=== PATIENT | male | born 1955 | race Caucasian/White ===

== ENCOUNTER 2019-11-17 11:00 | Day surgery (SDC) | payer OTHER, SELFPAY ==
--- NOTE | 2019-11-16 11:35 | HO.ANESPROP2 ---
Documented by User: Maritza Montenegro 11/16/19 11:38 HPI - Anesthesia Eval Consult details Narrative: 63yo M for Upper Endoscopy [facility] Past Medical History Medical History (Updated 11/16/19 @ 11:38 by Maritza Montenegro) Anxiety CAD (coronary artery disease) Depression Former smoker Hiatal hernia Kidney stones Myocardial infarct Sleep apnea Surgical History Surgical History (Updated 11/16/19 @ 11:38 by Maritza Montenegro) H/O gastric bypass History of appendectomy History of cholecystectomy History of coronary artery bypass surgery History of lithotripsy History of spinal fusion Social History Social History (Updated 11/16/19 @ 11:38 by Maritza Montenegro) Smoking Status: Former smoker Use of substances other than those prescribed or required for medical reasons: No Advance Directives: No Recently lost weight without trying: No Narrative Narrative: s/p ESWL with TIVA 10/11/19 Meds Allergies Allergy/AdvReac Type Severity Reaction Status Date / Time latex [LATEX] Allergy Intermediate RASH Unverified 10/26/19 14:55 Penicillins [PENICILLINS] Allergy Intermediate RASH/HIVES Unverified 10/26/19 14:55 Sulfa (Sulfonamide Allergy Intermediate HIVES, Unverified 10/26/19 14:55 Antibiotics) hospitalized, [SULFA(SULFONAMIDE edema ANTIBIOTICS)] codeine [CODEINE] AdvReac Unknown NAUSEA Unverified 10/26/19 14:55 Home Medications Medication Instructions Recorded Confirmed Type aspirin 81 mg PO DAILY 11/16/19 11/16/19 History cholecalciferol (vitamin D3) 50 mcg PO DAILY 11/16/19 11/16/19 History [Vitamin D3] clonazepam 1 tab PO BEDTIME PRN 11/16/19 11/16/19 History ezetimibe [Zetia] 10 mg PO DAILY 11/16/19 11/16/19 History meloxicam 1 tab PO DAILY 11/16/19 11/16/19 History oxcarbazepine 1 tab PO BID 11/16/19 11/16/19 History pantoprazole 1 tab PO BEDTIME 11/16/19 11/16/19 History quetiapine PO 11/16/19 History rosuvastatin mg PO 11/16/19 History tamsulosin 1 cap PO DAILY 11/16/19 11/16/19 History tamsulosin [Flomax] 0.4 mg PO DAILY 11/16/19 11/16/19 History testosterone cypionate mg IM 11/16/19 History carvedilol 1 tab PO BID 11/17/19 11/17/19 History Exam Exam Date and Time: November 16, 2019 1135 Assessment and Plan Assessment Anesthesia Assessment: Chart Reviewed Documented by User: Kenzie Saldana 11/17/19 11:39 [facility] Past Medical History Medical History (Updated 11/16/19 @ 11:38 by Maritza Montenegro) Anxiety CAD (coronary artery disease) Depression Former smoker Hiatal hernia Kidney stones Myocardial infarct Sleep apnea Family History Family history of problems with anesthesia: No Surgical History Surgical History (Updated 11/16/19 @ 11:38 by Maritza Montenegro) H/O gastric bypass History of appendectomy History of cholecystectomy History of coronary artery bypass surgery History of lithotripsy History of spinal fusion History of Problems with Anesthesia: Yes (PONV with GA) Social History Social History (Updated 11/16/19 @ 11:38 by Maritza Montenegro) Smoking Status: Former smoker Use of substances other than those prescribed or required for medical reasons: No Advance Directives: No Recently lost weight without trying: No Meds Allergies Allergy/AdvReac Type Severity Reaction Status Date / Time latex [LATEX] Allergy Intermediate RASH Unverified 10/26/19 14:55 Penicillins [PENICILLINS] Allergy Intermediate RASH/HIVES Unverified 10/26/19 14:55 Sulfa (Sulfonamide Allergy Intermediate HIVES, Unverified 10/26/19 14:55 Antibiotics) hospitalized, [SULFA(SULFONAMIDE edema ANTIBIOTICS)] codeine [CODEINE] AdvReac Unknown NAUSEA Unverified 10/26/19 14:55 Home Medications Medication Instructions Recorded Confirmed Type aspirin 81 mg PO DAILY 11/16/19 11/16/19 History cholecalciferol (vitamin D3) 50 mcg PO DAILY 11/16/19 11/16/19 History [Vitamin D3] clonazepam 1 tab PO BEDTIME PRN 11/16/19 11/16/19 History ezetimibe [Zetia] 10 mg PO DAILY 11/16/19 11/16/19 History meloxicam 1 tab PO DAILY 11/16/19 11/16/19 History oxcarbazepine 1 tab PO BID 11/16/19 11/16/19 History pantoprazole 1 tab PO BEDTIME 11/16/19 11/16/19 History quetiapine PO 11/16/19 History rosuvastatin mg PO 11/16/19 History tamsulosin 1 cap PO DAILY 11/16/19 11/16/19 History tamsulosin [Flomax] 0.4 mg PO DAILY 11/16/19 11/16/19 History testosterone cypionate mg IM 11/16/19 History carvedilol 1 tab PO BID 11/17/19 11/17/19 History Exam Height,Weight and Vital Signs: Vital Signs Temp Pulse Resp BP Pulse Ox 11/17/19 11:31 98.1 F 64 18 115/72 97 Airway Mallampati Class: III TM Dist: >3cm Partial: Upper and Lower Heart: RRR Lungs: CTAB Assessment and Plan Assessment Anesthesia Assessment: Anesthesia Plan Discussed and Chart Reviewed Final Anesthetic Review NPO: Yes ASA Class: III Final Preanesthetic Review: No Changes in Pt Med Stat, Meds/Allgs Chart Reviewed, Consent Obtained/Reviewed and Anes Risks/Benef Reviewed Patient Risk: Intermediate Procedure Risk: Low Anesthetic Plan Anesthetic Plan: MAC: Disposition: Standard PACU
[2019-11-17 11:23] VITALS: BMI 29.4
[2019-11-17 11:31] VITALS: BP 115/72; PULSE 64; RESP 18; TEMP 36.7; O2SAT 97
[2019-11-17 11:51] VITALS: BP 115/72; PULSE 64; RESP 18; TEMP 36.7; O2SAT 97
[2019-11-17] MEDS: Lactated Ringers 1,000 ML 100 ML IVCONT (11:53)
--- NOTE | 2019-11-17 12:19 | MHC.SHP ---
Pre-Procedural Eval Section A The patient is an INPATIENT: No Changes since office visit: No Cold of Flu in the past 2 weeks, No New Medical Problems, No Changes in Medication and No Patient answered all questions The History & Physical has been completed within 30 days and I have reviewed it.: Yes Section B Chief Complaint: Epigastric Pain Allergies: Allergies Allergy/AdvReac Type Severity Reaction Status Date / Time latex [LATEX] Allergy Intermediate RASH Unverified 10/26/19 14:55 Penicillins [PENICILLINS] Allergy Intermediate RASH/HIVES Unverified 10/26/19 14:55 Sulfa (Sulfonamide Allergy Intermediate HIVES, Unverified 10/26/19 14:55 Antibiotics) hospitalized, [SULFA(SULFONAMIDE edema ANTIBIOTICS)] codeine [CODEINE] AdvReac Unknown NAUSEA Unverified 10/26/19 14:55 Plan Patient has been examined and remains a candidate for the planned procedure
--- NOTE | 2019-11-17 12:43 | PM.OP ---
Brief Operative Note Date of procedure: 11/17/19 Pre-op diagnosis: dysphagia Post-op diagnosis: same Procedure: egd Surgeon: Kapil Morris Anesthesia: MAC Estimated blood loss (mL): 5 Pathology: other (esophageal biopsies) Condition: stable Disposition: PACU
[2019-11-17 12:47] VITALS: BP 99/56; PULSE 70; RESP 12; TEMP 36.1; O2SAT 95
[2019-11-17 13:00] VITALS: BP 100/71; PULSE 61; RESP 19; O2SAT 95
--- NOTE | 2019-11-17 13:26 | HO.POSTANES ---
Post Anesthesia Evaluation Post Anesthesia Evaluation Vital Signs: Vital Signs Temp Pulse Resp BP Pulse Ox 11/17/19 13:00 61 19 100/71 95 11/17/19 12:47 97 F 70 12 99/56 L 95 11/17/19 11:51 98.1 F 64 18 115/72 97 11/17/19 11:31 98.1 F 64 18 115/72 97 Anesthesia: Monitored Mental Status: Awake Pain Control: Satisfactory Nausea/Vomiting: None Hydration: Adequate Anesthesia-Related Issues: No Anes. Related Issues
--- NOTE | 2019-11-17 16:31 | OP_ITS ---
SURGEON: Kapil Morris MD INDICATIONS: Dysphagia. PREOPERATIVE DIAGNOSIS: POSTOPERATIVE DIAGNOSIS: PROCEDURE PERFORMED: Upper endoscopy with balloon dilation and biopsy. ESTIMATED BLOOD LOSS: COMPLICATIONS: ANESTHESIA: ASSISTANTS: SPECIMENS: MEDICATIONS: Monitored anesthesia care. DESCRIPTION OF PROCEDURE: History and physical performed. The risks and benefits of the procedure were explained to the patient. Informed consent was obtained. The patient was placed in the left lateral decubitus position. The Olympus video gastroscope was introduced into the esophagus, stomach, and duodenum. Examination was performed and the scope was removed. He tolerated the procedure well and was taken to recovery area in stable condition. FINDINGS: Esophagus: There was a 6 cm segment of Larson's esophagus with no raised lesions or ulcerated areas. The esophagus had somewhat of a sigmoid appearance to it. The EG junction was widely patent without a stricture. No esophagitis was present. Stomach: There was a hiatal hernia with a paraesophageal component. There were surgical changes from the patient's prior gastric sleeve surgery. Duodenum: The bulb and second portion were normal. A balloon dilation to 20 mm was performed at the EG junction because of the patient's complaints of dysphagia. Biopsies were obtained from 36 to 30 cm in all 4 quadrants every 2 cm. IMPRESSION: 1. Dysphagia. 2. Larson's esophagus. RECOMMENDATION: Follow up the biopsy results. MD BK Lenz/TWANL / [id number]
== END 2019-11-17 14:15 | disposition home or self-care (01) ==
PROVIDERS: PCP Internal Medicine; Visit Provider Internal Medicine Gastroenterology
PROC: 0DJ08ZZ Inspection of Upper Intestinal Tract, Via Natural or Artificial Opening Endoscopic (ICD-10-PCS; CPT 43235; principal; 2019-11-17 12:20)
DX: R13.10 Dysphagia, unspecified (principal); K22.70 Barrett's esophagus without dysplasia; K44.9 Diaphragmatic hernia without obstruction or gangrene; G47.33 Obstructive sleep apnea (adult) (pediatric); I25.2 Old myocardial infarction; I25.10 Atherosclerotic heart disease of native coronary artery without angina pectoris; Z95.1 Presence of aortocoronary bypass graft; Z79.82 Long term (current) use of aspirin; Z79.899 Other long term (current) drug therapy; Z90.49 Acquired absence of other specified parts of digestive tract; Z98.84 Bariatric surgery status; Z91.040 Latex allergy status; Z88.0 Allergy status to penicillin; Z88.2 Allergy status to sulfonamides; Z85.828 Personal history of other malignant neoplasm of skin; Z87.442 Personal history of urinary calculi; Z98.1 Arthrodesis status; Z87.891 Personal history of nicotine dependence
CPT/HCPCS: 43249; 43239; 88305; C1726

== ENCOUNTER → 2020-05-14 08:27 | Outpatient (BNVA) | payer OTHER, SELFPAY | PROVIDERS: PCP Internal Medicine; Visit Provider Urology | DX: E29.1 Testicular hypofunction (principal); N40.1 Benign prostatic hyperplasia with lower urinary tract symptoms | CPT/HCPCS: 51798 ==

== ENCOUNTER → 2020-06-14 12:57 | Outpatient (BNVA) | payer OTHER, SELFPAY | PROVIDERS: PCP Family Medicine; Visit Provider Urology | DX: N20.0 Calculus of kidney (principal); N40.1 Benign prostatic hyperplasia with lower urinary tract symptoms; E29.1 Testicular hypofunction | CPT/HCPCS: 52000; 81002 ==

== ENCOUNTER → 2020-12-20 14:09 | Outpatient (BNVA) | payer OTHER, MEDICARE, SELFPAY | PROVIDERS: PCP Family Medicine; Visit Provider Urology ==

== ENCOUNTER 2021-01-09 10:00 | Outpatient (REF) | payer OTHER, MEDICARE, SELFPAY ==
--- NOTE | ~2021-01-09 | US_ITS ---
EXAMINATION: US RETROPERITONEAL LIMITED (RENAL ONLY) CLINICAL INFORMATION: Calculus of kidney. COMPARISON: X-ray abdomen KUB 10/11/2019 and 09/27/2019. Renal ultrasound 09/11/2019 and 02/02/2019. CT abdomen and pelvis 01/18/2014. TECHNIQUE: Real-time imaging of the kidneys. FINDINGS: RIGHT KIDNEY: 10.2 x 5.3 x 4.8 cm (SAG x AP x TRV). The kidney is normal in size, contour, and echogenicity. Renal cortical thickness is normal. No focal parenchymal lesions or hydronephrosis. There is echogenic nonobstructive calculi mid pole measuring 0.5 x 0.2 cm and lower pole measuring 0.8 x 0.3 cm. Previously seen 6 mm cyst upper pole right kidney on ultrasound 09/11/2019 is not visualized on the present exam. LEFT KIDNEY: 10.6 x 5.5 x 5.7 cm (SAG x AP x TRV). The kidney is normal in size, contour, and echogenicity. Renal cortical thickness is normal. No focal parenchymal lesions or hydronephrosis. There is an echogenic stone in the upper pole measuring 0.5 x 0.3 cm, lower pole measuring 0.3 x 0.3 cm, 0.2 x 0.2 cm and 0.4 x 0.3 cm. There is no caliectasis. US/US renal BI IMPRESSION: Bilateral nonobstructive echogenic renal calculi. There is no hydronephrosis.
== END 2021-01-09 10:01 | disposition home or self-care (01) ==
LOC: HO.US 10:00
PROVIDERS: PCP Family Medicine; Visit Provider Urology
DX: N20.0 Calculus of kidney (principal)
CPT/HCPCS: 76775

== ENCOUNTER → 2021-01-17 14:06 | Outpatient (BNVA) | payer OTHER, MEDICARE, SELFPAY | PROVIDERS: PCP Family Medicine; Visit Provider Urology | DX: N40.1 Benign prostatic hyperplasia with lower urinary tract symptoms (principal); N20.0 Calculus of kidney; E29.1 Testicular hypofunction | CPT/HCPCS: 99212 ==

== ENCOUNTER 2021-07-09 08:29 | Outpatient (REF) | payer OTHER, MEDICARE, SELFPAY ==
--- NOTE | ~2021-07-09 | US_ITS ---
EXAMINATION: US RETROPERITONEAL LIMITED (RENAL ONLY) CLINICAL INFORMATION: Calculus of kidney. COMPARISON: US retroperitoneal limited (renal only) 01/09/2021 and 09/11/2019. XR abdomen KUB 04/22/2016 and 03/18/2016. CT abdomen and pelvis 01/18/2014. TECHNIQUE: Real-time imaging of the kidneys. FINDINGS: RIGHT KIDNEY: 10.7 x 4.9 x 4.9 cm (SAG x AP x TRV). The kidney is normal in size, contour, and echogenicity. Renal cortical thickness is normal. No focal parenchymal lesions or hydronephrosis. There is a small cluster of stones in the lower pole measured 0.8 x 0.3 cm LEFT KIDNEY: 10.8 x 6.0 x 4.9 cm (SAG x AP x TRV). The kidney is normal in size, contour, and echogenicity. Renal cortical thickness is normal. No focal parenchymal lesions or hydronephrosis. There are a few calculi seen measured in interpolar area 0.7 x 0.4 cm, in the lower pole there is a cluster of tiny cysts seen below stones measured 0.8 x 0.5 cm. US/US renal BI IMPRESSION: Bilateral nephrolithiasis without hydronephrosis.
--- NOTE | ~2021-07-09 | XR_ITS ---
EXAMINATION: XR ABDOMEN KUB CLINICAL INDICATION: Nephrolithiasis. COMPARISON: Abdominal radiograph dated from 10/11/2019. TECHNIQUE: AP view of the abdomen. FINDINGS: Evaluation of renal calculi is somewhat limited due to overlying colonic gas and stool content. Redemonstration of several subcentimeter densities in the lower pole of the right kidney, and a subcentimeter density in the interpolar region of the left kidney. No definite ureteral calculi. Again noted multiple pelvic phleboliths. Partially imaged sternotomy wires and mediastinal clips. Redemonstration of surgical sutures in the epigastrium with upper abdominal surgical clips. Posterior fusion hardware at L5-S1. XR/XR KUB IMPRESSION: Renal calculi as above. Correlate with same day renal ultrasound. If there is clinical concern for obstructive uropathy, correlation with a CT abdomen/pelvis is recommended.
== END 2021-07-09 08:30 | disposition home or self-care (01) ==
LOC: HO.US 08:29
PROVIDERS: Visit Provider Urology
DX: N20.0 Calculus of kidney (principal); N20.1 Calculus of ureter
CPT/HCPCS: 74018; 76775

== ENCOUNTER 2022-01-05 07:53 | Outpatient (REF) | payer OTHER, MEDICARE, SELFPAY ==
--- NOTE | ~2022-01-05 | US_ITS ---
EXAMINATION: US RETROPERITONEAL LIMITED (RENAL ONLY) CLINICAL INFORMATION: Calculus of kidney. COMPARISON: Ultrasound retroperitoneal limited (renal only) 07/09/2021 and 01/09/2021. X-ray abdomen KUB 07/09/2021 and 02/24/2017. CT abdomen and pelvis 01/18/2014. TECHNIQUE: Real-time imaging of the kidneys. FINDINGS: RIGHT KIDNEY: 10.2 x 5.1 x 4.3 cm (SAG x AP x TRV). The kidney is normal in size, contour, and echogenicity. Renal cortical thickness is normal. Multiple stones largest measuring 4 mm in the lower pole. No focal parenchymal lesions or hydronephrosis. LEFT KIDNEY: 11.3 x 6.2 x 4.8 cm (SAG x AP x TRV). The kidney is normal in size, contour, and echogenicity. Renal cortical thickness is normal. Multiple stones, largest measuring 4 mm in the midpole. No focal parenchymal lesions or hydronephrosis. US/US renal BI IMPRESSION: Multiple bilateral small renal stones.
[2022-01-05 10:15] LABS: Hematocrit 41.2 % (42.0-52.0); Hemoglobin 13.7 g/dl (14.0-18.0); Mean Corpuscular HGB Conc 33.3 g/dl (31.0-36.0); Mean Corpuscular Hemoglobin 28.2 pg (27.0-33.0); Mean Corpuscular Volume 84.9 fL (80.0-98.0); Mean Platelet Volume 9.7 fL (9.4-12.4); Platelet Count 204 X10*3/uL (160-400); Red Blood Count 4.85 X10*6/uL (4.60-5.80); Red Cell Distribution Width 14.4 % (11.0-16.0); White Blood Count 7.5 X10*3/uL (4.8-10.8)
[2022-01-05 11:01] LABS: Prostate Specific Antigen 1.81 ng/mL (<0.05-4.0)
[2022-01-12 06:37] LABS: Testosterone, Total 458 ng/dL (250-1100)
== END 2022-01-05 07:54 | disposition home or self-care (01) ==
LOC: HO.US 07:53
PROVIDERS: PCP Family Medicine; Visit Provider Urology
DX: Z12.5 Encounter for screening for malignant neoplasm of prostate (principal); N20.0 Calculus of kidney; E29.1 Testicular hypofunction
CPT/HCPCS: 36415; 76775; 84153; 84403; 85027

== ENCOUNTER → 2022-05-15 12:18 | Outpatient (BNVA) | payer OTHER, SELFPAY | PROVIDERS: PCP Family Medicine; Visit Provider Urology | DX: Z13.89 Encounter for screening for other disorder (principal) ==

== ENCOUNTER 2022-07-03 09:37 | Outpatient (REF) | payer OTHER, SELFPAY ==
--- NOTE | ~2022-07-03 | US_ITS ---
EXAMINATION: US RETROPERITONEAL LIMITED (RENAL ONLY) CLINICAL INFORMATION: Calculus of kidney. COMPARISON: Bilateral renal ultrasound dated 01/05/2022 and 07/09/2021. KUBs dated 07/09/2021 and 10/11/2019. CT abdomen and pelvis without contrast dated 01/18/2014. TECHNIQUE: Real-time imaging of the kidneys. FINDINGS: RIGHT KIDNEY: 10.0 x 5.0 x 4.8 cm (SAG x AP x TRV). The kidney is normal in size, contour, and echogenicity. Renal cortical thickness is normal. No focal parenchymal lesions or hydronephrosis. At the upper pole, a 5 mm nonobstructing calculus is seen, with twinkle artifact. At the interpolar aspect, a 7 mm nonobstructing calculus is seen, with twinkle artifact. At the lower pole, a 7 mm nonobstructing calculus is seen, with twinkle artifact. LEFT KIDNEY: 11.3 x 5.4 x 5.2 cm (SAG x AP x TRV). The kidney is normal in size, contour, and echogenicity. Renal cortical thickness is normal. No focal parenchymal lesions or hydronephrosis. At the interpolar aspect, a 4 mm nonobstructing calculus is seen, with twinkle artifact. At the lower pole, a 3 mm nonobstructing calculus is seen, with twinkle artifact. US/US renal BI IMPRESSION: Multiple nonobstructing bilateral renal calculi are seen, as detailed. No hydronephrosis is noted.
== END 2022-07-03 09:38 | disposition home or self-care (01) ==
LOC: HO.US 09:37
PROVIDERS: PCP Family Medicine; Visit Provider Urology
DX: N20.0 Calculus of kidney (principal)
CPT/HCPCS: 76775

== ENCOUNTER 2022-07-08 09:22 | Outpatient (REF) | payer OTHER, SELFPAY ==
[2022-07-08 11:37] LABS: PSA,Total (Free>4and<10) 3.25 ng/mL (0.00-4.00)
[2022-07-15 15:42] LABS: Testosterone, Free 220.6 pg/mL (35.0-155.0); Testosterone, Total 893 ng/dL (250-1100)
== END 2022-07-08 09:23 | disposition home or self-care (01) ==
LOC: HO.LAB 09:22
PROVIDERS: PCP Family Medicine; Referring Provider Family Medicine; Visit Provider Urology
DX: E29.1 Testicular hypofunction (principal); Z12.5 Encounter for screening for malignant neoplasm of prostate
CPT/HCPCS: 36415; 84153; 84402; 84403

== ENCOUNTER → 2022-07-21 12:40 | Outpatient (BNVA) | payer OTHER, SELFPAY | PROVIDERS: PCP Family Medicine; Visit Provider Urology | DX: N40.1 Benign prostatic hyperplasia with lower urinary tract symptoms (principal); E29.1 Testicular hypofunction; N20.0 Calculus of kidney; Z79.82 Long term (current) use of aspirin | CPT/HCPCS: 51798 ==

== ENCOUNTER 2022-11-10 07:11 | Day surgery (SDC) | payer OTHER, SELFPAY ==
--- NOTE | 2022-11-09 09:01 | P.CONAN_ITS ---
Documented by User: Maritza Montenegro NP 11/09/22 09:04 HPI - Anesthesia Eval Consult details Narrative: 66yo M for Upper Endoscopy s/p CABG 2013. Follows Dr Milan. No reports of cardiac symptoms per 05/2022 PCP note PMFSH Active Problems Active Problems: All Active Problems (Updated 11/09/22 @ 07:27 by Mindy Leslie, RN) Screening PSA (prostate specific antigen) (Acute) Kidney stones (Acute) Hypogonadism in male (Acute) Benign prostatic hyperplasia with lower urinary tract symptoms (Acute) Past Medical History Medical History Back pain Hyponatremia Synovial cyst Bipolar disorder Larson esophagus GERD (gastroesophageal reflux disease) Other obstructive and reflux uropathy Benign prostatic hyperplasia with lower urinary tract symptoms Hypogonadism in male Former smoker Anxiety Depression Kidney stones Hiatal hernia Sleep apnea Myocardial infarct CAD (coronary artery disease) Family History Family history of problems with anesthesia: No Surgical History Surgical History Hx of tonsillectomy History of esophagogastroduodenoscopy (EGD) H/O colonoscopy H/O hernia repair H/O gastric bypass History of coronary artery bypass surgery History of lithotripsy History of spinal fusion History of cholecystectomy History of appendectomy History of Problems with Anesthesia: Yes (PONV with GA) Social History Social History Alcohol intake: former Patient Tobacco Use Status: Former Tobacco user Quit Date: 2014 Use of substances other than those prescribed or required for medical reasons: No Advance Directives: No Advance Directives Information Provided: Yes Meds Allergies Allergy/AdvReac Type Severity Reaction Status Date / Time latex [LATEX] Allergy Intermediate RASH Verified 07/21/22 13:04 Penicillins [PENICILLINS] Allergy Intermediate RASH/HIVES Verified 07/21/22 13:04 Sulfa (Sulfonamide Allergy Intermediate HIVES, Verified 07/21/22 13:04 Antibiotics) hospitalized, [SULFA(SULFONAMIDE edema ANTIBIOTICS)] clindamycin Allergy Gastrointestinal Verified 09/21/22 08:34 Upset codeine [CODEINE] AdvReac Unknown NAUSEA Verified 07/21/22 13:04 Home Medications Medication Instructions Recorded Confirmed Last Taken Type aspirin 81 mg tablet 81 mg PO Q OTHER DAY 11/16/19 09/21/22 Unknown History cholecalciferol (vitamin D3) 50 50 mcg PO DAILY 11/16/19 09/21/22 Unknown History mcg (2,000 unit) capsule (Vitamin D3) clonazepam 1 mg tablet 1 tab PO BEDTIME PRN Sleep 11/16/19 09/21/22 Unknown History ezetimibe 10 mg tablet (Zetia) 10 mg PO DAILY 11/16/19 09/21/22 Unknown History rosuvastatin 5 mg tablet 5 mg PO 3XW 11/16/19 09/21/22 Unknown History carvedilol 6.25 mg tablet 1 tab PO BID 11/17/19 09/21/22 11/17/19 09:00 History quetiapine 50 mg tablet 50 mg PO BID 01/17/21 01/19/22 Unknown History tramadol 50 mg tablet 50 mg PO TID PRN Pain 08/07/21 09/21/22 Unknown History esomeprazole magnesium 40 mg 40 mg PO DAILY 11/09/22 11/09/22 Unknown History capsule,delayed release lithium carbonate 300 mg 300 mg PO TID 11/09/22 11/09/22 Unknown History tablet,extended release olanzapine 5 mg tablet mg PO 11/09/22 Unknown History Exam Exam Date and Time: November 09, [id number] Assessment and Plan Assessment Anesthesia Assessment: Chart Reviewed Final Anesthetic Review Family History of Problems with Anesthesia: No History of Problems with Anesthesia: Yes (PONV with GA) Documented by User: Adelina Brewster MD 11/10/22 10:10 [facility] Past Medical History Medical History Back pain Hyponatremia Synovial cyst Bipolar disorder Lrason esophagus GERD (gastroesophageal reflux disease) Other obstructive and reflux uropathy Benign prostatic hyperplasia with lower urinary tract symptoms Hypogonadism in male Former smoker Anxiety Depression Kidney stones Hiatal hernia Sleep apnea Myocardial infarct CAD (coronary artery disease) Surgical History Surgical History Hx of tonsillectomy History of esophagogastroduodenoscopy (EGD) H/O colonoscopy H/O hernia repair H/O gastric bypass History of coronary artery bypass surgery History of lithotripsy History of spinal fusion History of cholecystectomy History of appendectomy History of Problems with Anesthesia: No (PONV with GA) Social History Social History Alcohol intake: former Patient Tobacco Use Status: Former Tobacco user Quit Date: 2014 Use of substances other than those prescribed or required for medical reasons: No Advance Directives: No Advance Directives Information Provided: Yes Meds Allergies Allergy/AdvReac Type Severity Reaction Status Date / Time latex [LATEX] Allergy Intermediate RASH Verified 07/21/22 13:04 Penicillins [PENICILLINS] Allergy Intermediate RASH/HIVES Verified 07/21/22 13:04 Sulfa (Sulfonamide Allergy Intermediate HIVES, Verified 07/21/22 13:04 Antibiotics) hospitalized, [SULFA(SULFONAMIDE edema ANTIBIOTICS)] clindamycin Allergy Gastrointestinal Verified 09/21/22 08:34 Upset codeine [CODEINE] AdvReac Unknown NAUSEA Verified 07/21/22 13:04 Home Medications Medication Instructions Recorded Confirmed Last Taken Type aspirin 81 mg tablet 81 mg PO Q OTHER DAY 11/16/19 09/21/22 Unknown History cholecalciferol (vitamin D3) 50 50 mcg PO DAILY 11/16/19 09/21/22 Unknown History mcg (2,000 unit) capsule (Vitamin D3) clonazepam 1 mg tablet 1 tab PO BEDTIME PRN Sleep 11/16/19 09/21/22 Unknown History ezetimibe 10 mg tablet (Zetia) 10 mg PO DAILY 11/16/19 09/21/22 Unknown History rosuvastatin 5 mg tablet 5 mg PO 3XW 11/16/19 09/21/22 Unknown History carvedilol 6.25 mg tablet 1 tab PO BID 11/17/19 09/21/22 11/17/19 09:00 History quetiapine 50 mg tablet 50 mg PO BID 01/17/21 01/19/22 Unknown History tramadol 50 mg tablet 50 mg PO TID PRN Pain 08/07/21 09/21/22 Unknown History esomeprazole magnesium 40 mg 40 mg PO DAILY 11/09/22 11/09/22 Unknown History capsule,delayed release lithium carbonate 300 mg 300 mg PO TID 11/09/22 11/09/22 Unknown History tablet,extended release olanzapine 5 mg tablet mg PO 11/09/22 Unknown History Exam Airway Mallampati Class: III TM Dist: >3cm Neck ROM: Full Loose/Missing/Broken Teeth: No Heart: RRR Lungs: CTA Assessment and Plan Assessment Anesthesia Assessment: Anesthesia Plan Discussed Final Anesthetic Review History of Problems with Anesthesia: No (PONV with GA) NPO: Yes ASA Class: III Final Preanesthetic Review: Meds/Allgs Chart Reviewed, Consent Obtained/Reviewed and Anes Risks/Benef Reviewed Patient Risk: Intermediate Procedure Risk: Intermediate Anesthetic Plan Anesthetic Plan: MAC: Disposition: Standard PACU
[2022-11-10 08:59] VITALS: BP 130/83; PULSE 70; RESP 18; TEMP 36.3; O2SAT 96; BMI 30.7
[2022-11-10] MEDS: Lactated Ringers 1,000 ML 100 ML IVCONT (09:03)
--- NOTE | 2022-11-10 10:38 | MHC.SHP ---
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 Details of Present Illness: see H&P no changes Relevant Family History (Specify if Yes): No Relevant Social History: None Present Medications: see Short Stay Collaborative assessment Allergies: Allergies Allergy/AdvReac Type Severity Reaction Status Date / Time latex [LATEX] Allergy Intermediate RASH Verified 07/21/22 13:04 Penicillins [PENICILLINS] Allergy Intermediate RASH/HIVES Verified 07/21/22 13:04 Sulfa (Sulfonamide Allergy Intermediate HIVES, Verified 07/21/22 13:04 Antibiotics) hospitalized, [SULFA(SULFONAMIDE edema ANTIBIOTICS)] clindamycin Allergy Gastrointestinal Verified 09/21/22 08:34 Upset codeine [CODEINE] AdvReac Unknown NAUSEA Verified 07/21/22 13:04 Review of Systems Sugical H&P ROS: Negative: Constitution, Cardiovascular, Respiratory, Neurological, Psychiatric, Hem-Onc, Allergic/Immunologic, Gastrointestinal, Genitourinary, Musculoskeletal, Integumentary, Endocrine and Eyes/Ears/Nose/Throat Exam Surgical H&P Exam: Normal: HEENT, Normal: Heart, Normal: Lungs, Normal: Extremities, Normal: Abdomen, Normal: Skin and Normal: Neurological Plan Diagnosis/Plan: Unchanged I have reviewed the history and physical and performed a pertinent physical examination on my patient. No changes have occurred unless specified. Time Spent With Patient Time: Total time managing care of this patient today ____ minutes.
[2022-11-10 10:40] VITALS: BP 97/64; PULSE 79; RESP 18; TEMP 36.5; O2SAT 95
[2022-11-10 10:55] VITALS: BP 105/63; PULSE 68; RESP 16; TEMP 36.5; O2SAT 95
[2022-11-10 11:10] VITALS: BP 131/74; PULSE 63; RESP 16; O2SAT 94
[2022-11-10 11:22] VITALS: BP 130/72; PULSE 63; RESP 16; TEMP 36.2; O2SAT 97
--- NOTE | 2022-11-10 11:36 | OP_ITS ---
DATE OF SERVICE: 11/10/2022 SURGEON: Kapil Morris MD INDICATIONS: Larson esophagus. PREOPERATIVE DIAGNOSIS: POSTOPERATIVE DIAGNOSIS: PROCEDURE PERFORMED: Upper endoscopy with biopsy. ESTIMATED BLOOD LOSS: COMPLICATIONS: ANESTHESIA: Monitored anesthesia care. ASSISTANTS: SPECIMENS: DESCRIPTION OF PROCEDURE: A history and physical was performed. The risks and benefits of the procedure were explained to the patient and informed consent was obtained. The patient was placed in the left lateral decubitus position. The Olympus video gastroscope was introduced into the esophagus, stomach, and duodenum. Examination was performed. The scope was removed. He tolerated the procedure well and was returned to the recovery area in stable condition. FINDINGS: Esophagus: The esophagus showed a 6 cm length of Larson esophagus with no raised lesions or ulcerated areas. Biopsies were obtained in all 4 quadrants every 2 cm. There was a small hiatal hernia. Stomach: The stomach showed surgical changes from his prior sleeve surgery and hiatal hernia repair. There was no ulceration. Antral biopsies were obtained to evaluate for H pylori. Duodenum: The bulb and 2nd portion were normal. IMPRESSION: Larson esophagus. RECOMMENDATION: Follow up the biopsy results. MD BK Lenz/ILDEFONSO / [id number]
== END 2022-11-10 12:06 | disposition home or self-care (01) ==
PROVIDERS: PCP Family Medicine; Visit Provider Internal Medicine Gastroenterology
PROC: 0DJ08ZZ Inspection of Upper Intestinal Tract, Via Natural or Artificial Opening Endoscopic (ICD-10-PCS; CPT 43235; principal; 2022-11-10 09:00)
DX: K22.70 Barrett's esophagus without dysplasia (principal); K44.9 Diaphragmatic hernia without obstruction or gangrene; K21.9 Gastro-esophageal reflux disease without esophagitis; Z98.84 Bariatric surgery status; I25.10 Atherosclerotic heart disease of native coronary artery without angina pectoris; I25.2 Old myocardial infarction; Z95.1 Presence of aortocoronary bypass graft; G47.33 Obstructive sleep apnea (adult) (pediatric); Z90.49 Acquired absence of other specified parts of digestive tract; Z87.01 Personal history of pneumonia (recurrent); Z79.899 Other long term (current) drug therapy; Z99.89 Dependence on other enabling machines and devices; Z79.82 Long term (current) use of aspirin; Z87.891 Personal history of nicotine dependence; Z98.890 Other specified postprocedural states; K58.9 Irritable bowel syndrome, unspecified
CPT/HCPCS: 43239; 88305; 88342

== ENCOUNTER 2022-12-01 15:05 | Outpatient (AMB) | payer OTHER, SELFPAY ==
--- NOTE | 2022-12-01 15:05 | A.OFFVIS_ITS ---
Intake Intake Visit Reasons: H&P (eswl 12/09) Intake Note: Patient is Present for Telephone Follow Up For Urology Med: Testosterone Antibiotic Allergy: Penicillins, Sulfa, Clindamycin Blood Thinner: Aspirin Pharamcy: [facility] Allergies latex [LATEX] Allergy (Intermediate, Verified 12/01/22 15:06) RASH Penicillins [PENICILLINS] Allergy (Intermediate, Verified 12/01/22 15:06) RASH/HIVES Sulfa (Sulfonamide Antibiotics) [SULFA(SULFONAMIDE ANTIBIOTICS)] Allergy (Intermediate, Verified 12/01/22 15:06) HIVES, hospitalized, edema clindamycin Allergy (Verified 12/01/22 15:06) Gastrointestinal Upset codeine [CODEINE] Adverse Reaction (Unknown, Verified 12/01/22 15:06) NAUSEA HPI HPI Comments History of Present Illness Details Butch is a pleasant male. He is a patient of Dr Soto. He has have the following urologic issues - nephrolithiasis - BPH - hypogonadism - Dr. Dewey manager rental for low-sodium on fluid restriction Telemedicine Evaluation 15 min Consultation [employer] Betty Video attempted Right flank discomfort Stones on imaging Plan right side - ESWL Hypogonadism Testosterone replacement ongoing Labs 05/29 T 569, PSA 2.6, 11/28 T1500 4.3, 07/30 T 390 2.2, 06/30 860 Did have elevation August 2020 with UTI - PSA 27 Injection Day - Lab Day Wed Current therapy testosterone injections administers injection every 2 weeks Nephrolithiasis Longstanding Multiple prior procedures Imaging - 07/31 right 7 mm stones, left 3 mm ston e 24 hour urine - 06/30 adequate volume 1.6 L, low citrat e BPH Prior laser prostate procedure 2017 Did have bladder neck contracture Off Flomax Cystoscopy 06/28 open with TURP defect PFSH Medical History Back pain Hyponatremia Synovial cyst Bipolar disorder Larson esophagus GERD (gastroesophageal reflux disease) Other obstructive and reflux uropathy Benign prostatic hyperplasia with lower urinary tract symptoms Hypogonadism in male Former smoker Anxiety Depression Kidney stones Hiatal hernia Sleep apnea Myocardial infarct CAD (coronary artery disease) Surgical History Hx of tonsillectomy History of esophagogastroduodenoscopy (EGD) H/O colonoscopy H/O hernia repair H/O gastric bypass History of coronary artery bypass surgery History of lithotripsy History of spinal fusion History of cholecystectomy History of appendectomy Social History Alcohol intake: former Patient Tobacco Use Status: Former Tobacco user Quit Date: 2014 Review of Systems Const All systems reviewed & are unremarkable except as noted in HPI and below Reports no additional complaints Resp Reports no additional complaints GI Reports no additional complaints Reports as per HPI Musc Reports no additional complaints Physical Exam Telemedicine evaluation Appropriate responses Regular breathing rate and rhythm HEENT Head: Yes normal to inspection Ears: hearing grossly normal bilaterally Eyes General: appearance normal, both eyes and all related structures Neck Neck: Yes normal visual inspection Chest Chest palpation & inspection: normal inspection of the chest Resp Effort & Inspection: normal respiratory effort and able to speak in complete sentences Assessment & Plan Assessment & Plan (1) Kidney stones: Code(s): N20.0 - Calculus of kidney Plan Extracorporeal Shock Wave Lithotripsy We discussed the nature of the decision and reasonable alternatives for performing the above surgery. Interventions include chemical dissolution, ESWL, ureteroscopy with laser lithotripsy and stent placement, PCNL. Options such as medical therapy were discussed. The relative uncertainties and benefits related to each alternate procedure were adequately discussed. General surgical risks including, but not limited to, pain, bleeding, infection, myocardial infarction, pulmonary embolus, deep vein thrombosis and cerebrovascular accident which may result in further hospitaliz ation were discussed. Full disclosure of the procedure as well as all major risks, benefits and complications were discussed including but not limited to risks of bleeding, injury to the kidney with hematoma or victor hugo-hematoma, failure to fragments stone, potential for ureteric obstruction from stone passage and need for secondary procedures. There is a small long-term risk of hypertension and a question rakesh of diabetes. Success rate of fragmentation and passage is approximately 70- 75%. This is compared to the risks and benefits for ureteroscopy which has a higher success rate but is a more invasive procedure. The success rate of the procedure was discussed. Success of the procedure in the short-term does not necessarily guarantee that long-term success will be maintained. Suitable follow up will need to be maintained. The patient showed understanding of the discussion as well as the typical recovery time, and the outpatient nature of this procedure. Opportunity was given for questions. Repeat-back protocol used to confirm understanding. They wish to proceed with right ESWL Patient Instructions: Imaging studies, laboratory and physical exam results were discussed and reviewed in detail. No major barriers to patient understanding were identified. An opportunity to ask questions regarding the treatment plan was provided. All questions were answered. The patient expressed understanding and agreement with the above treatment plan. The patient is aware they should contact our office by phone for worsening of their current condition or the appearance of new urologic symptoms. Compliance is encouraged with any medications and followup testing that is ordered. It is a privilege to participate in the urologic care of your patient. If you have any questions or concerns regarding treatment for the above conditions, or other urologic issues, please do not hesitate to contact me. The office teleph one contact is [phone]. This note is constructed using voice recognition software. While every effort has been made to ensure accuracy harness cutter errors may have been included. Yours sincerely, Dr Joe Contreras MD, [facility] - Urology Providers of Expert, Compassionate Care for the Genitourinary System Telehealth Telehealth Location of provider rendering services: practice address Location of patient: address on file Patient Identification confirmed using: Name, : Yes Telehealth method: video Patient verbally consented to treatment: Yes Patient verbally consented to billing insurance company: Yes Patient informed of any privacy concerns related to visit: Yes Coding Level of Care Code Tele Est Pt Level 3 (33083) Diagnoses Kidney stones N20.0
== END 2022-12-01 16:06 | disposition home or self-care (01) ==
LOC: HO.HUSH 15:05
PROVIDERS: PCP Family Medicine; Visit Provider Urology
DX: N20.0 Calculus of kidney (principal)
CPT/HCPCS: 99213

== ENCOUNTER → 2022-12-01 15:05 | Outpatient (BNVA) | payer OTHER, SELFPAY | PROVIDERS: PCP Family Medicine; Visit Provider Urology ==

== ENCOUNTER 2022-12-23 06:33 | Day surgery (SDC) | payer OTHER, SELFPAY ==
[2022-12-21 14:10] VITALS: BMI 32.2
--- NOTE | 2022-12-22 09:45 | P.CONAN_ITS ---
Documented by User: Maritza Montenegro NP 12/22/22 09:48 HPI - Anesthesia Eval Consult details Narrative: 67yo M for Right ESWL Medically optimized s/p EGD 11/2022 with MAC PMF Active Problems Active Problems: All Active Problems (Updated 11/09/22 @ 07:27 by Mindy Leslie, RN) Screening PSA (prostate specific antigen) (Acute) Kidney stones (Acute) Hypogonadism in male (Acute) Benign prostatic hyperplasia with lower urinary tract symptoms (Acute) Past Medical History Medical History Elevated cholesterol Skin cancer H/O supraventricular tachycardia Back pain Hyponatremia Synovial cyst Bipolar disorder Larson esophagus GERD (gastroesophageal reflux disease) Other obstructive and reflux uropathy Benign prostatic hyperplasia with lower urinary tract symptoms Hypogonadism in male Former smoker Anxiety Depression Kidney stones Hiatal hernia Sleep apnea Myocardial infarct CAD (coronary artery disease) Family History Family history of problems with anesthesia: No Surgical History Surgical History S/P insertion of spinal cord stimulator Hx of tonsillectomy History of esophagogastroduodenoscopy (EGD) H/O colonoscopy H/O hernia repair H/O gastric bypass History of coronary artery bypass surgery History of lithotripsy History of spinal fusion History of cholecystectomy History of appendectomy History of Problems with Anesthesia: No (PONV with GA) Social History Social History Alcohol intake: former Patient Tobacco Use Status: Former Tobacco user Quit Date: 2013 Use of substances other than those prescribed or required for medical reasons: No Are you DNR?: No Advance Directives: No Advance Directives Information Provided: Yes Meds Allergies Allergy/AdvReac Type Severity Reaction Status Date / Time clindamycin Allergy Intermediate Gastrointestinal Verified 12/23/22 06:54 Upset latex [LATEX] Allergy Intermediate RASH Verified 12/23/22 06:54 Penicillins [PENICILLINS] Allergy Intermediate RASH/HIVES Verified 12/23/22 06:54 Sulfa (Sulfonamide Allergy Intermediate HIVES, Verified 12/23/22 06:54 Antibiotics) hospitalized, [SULFA(SULFONAMIDE edema ANTIBIOTICS)] codeine [CODEINE] AdvReac Intermediate NAUSEA Verified 12/23/22 06:54 Home Medications Medication Instructions Recorded Confirmed Last Taken Type aspirin 81 mg tablet 81 mg PO Q OTHER DAY 11/16/19 12/21/22 12/09/22 History clonazepam 1 mg tablet 1 tab PO BEDTIME PRN Sleep 11/16/19 12/21/22 Unknown History ezetimibe 10 mg tablet (Zetia) 10 mg PO DAILY 11/16/19 12/21/22 Unknown History rosuvastatin 5 mg tablet 5 mg PO 3XW 11/16/19 12/21/22 Unknown History carvedilol 6.25 mg tablet 1 tab PO BID 11/17/19 12/21/22 12/23/22 05:00 History tramadol 50 mg tablet 50 mg PO TID PRN Pain 08/07/21 12/21/22 Unknown History esomeprazole magnesium 40 mg 40 mg PO DAILY 11/09/22 12/21/22 Unknown History capsule,delayed release omeprazole 40 mg capsule,delayed 40 mg PO BID 12/01/22 12/21/22 Unknown History release Exam Exam Date and Time: December 22, 2022 0945 Height,Weight and Vital Signs: Height 5 ft 10 in Weight 101.7 kg Assessment and Plan Assessment Anesthesia Assessment: Chart Reviewed Final Anesthetic Review Family History of Problems with Anesthesia: No History of Problems with Anesthesia: No (PONV with GA) Documented by User: Adelina Brewster MD 12/23/22 08:00 [facility] Past Medical History Medical History Elevated cholesterol Skin cancer H/O supraventricular tachycardia Back pain Hyponatremia Synovial cyst Bipolar disorder Larson esophagus GERD (gastroesophageal reflux disease) Other obstructive and reflux uropathy Benign prostatic hyperplasia with lower urinary tract symptoms Hypogonadism in male Former smoker Anxiety Depression Kidney stones Hiatal hernia Sleep apnea Myocardial infarct CAD (coronary artery disease) Surgical History Surgical History S/P insertion of spinal cord stimulator Hx of tonsillectomy History of esophagogastroduodenoscopy (EGD) H/O colonoscopy H/O hernia repair H/O gastric bypass History of coronary artery bypass surgery History of lithotripsy History of spinal fusion History of cholecystectomy History of appendectomy Social History Social History Alcohol intake: former Patient Tobacco Use Status: Former Tobacco user Quit Date: 2013 Use of substances other than those prescribed or required for medical reasons: No Are you DNR?: No Advance Directives: No Advance Directives Information Provided: Yes Meds Allergies Allergy/AdvReac Type Severity Reaction Status Date / Time clindamycin Allergy Intermediate Gastrointestinal Verified 12/23/22 06:54 Upset latex [LATEX] Allergy Intermediate RASH Verified 12/23/22 06:54 Penicillins [PENICILLINS] Allergy Intermediate RASH/HIVES Verified 12/23/22 06:54 Sulfa (Sulfonamide Allergy Intermediate HIVES, Verified 12/23/22 06:54 Antibiotics) hospitalized, [SULFA(SULFONAMIDE edema ANTIBIOTICS)] codeine [CODEINE] AdvReac Intermediate NAUSEA Verified 12/23/22 06:54 Home Medications Medication Instructions Recorded Confirmed Last Taken Type aspirin 81 mg tablet 81 mg PO Q OTHER DAY 11/16/19 12/21/22 12/09/22 History clonazepam 1 mg tablet 1 tab PO BEDTIME PRN Sleep 11/16/19 12/21/22 Unknown History ezetimibe 10 mg tablet (Zetia) 10 mg PO DAILY 11/16/19 12/21/22 Unknown History rosuvastatin 5 mg tablet 5 mg PO 3XW 11/16/19 12/21/22 Unknown History carvedilol 6.25 mg tablet 1 tab PO BID 11/17/19 12/21/22 12/23/22 05:00 History tramadol 50 mg tablet 50 mg PO TID PRN Pain 08/07/21 12/21/22 Unknown History esomeprazole magnesium 40 mg 40 mg PO DAILY 11/09/22 12/21/22 Unknown History capsule,delayed release omeprazole 40 mg capsule,delayed 40 mg PO BID 12/01/22 12/21/22 Unknown History release Exam Airway Mallampati Class: III TM Dist: >3cm Neck ROM: Full Loose/Missing/Broken Teeth: No Heart: RRR Lungs: CTA Assessment and Plan Assessment Anesthesia Assessment: Anesthesia Plan Discussed Final Anesthetic Review NPO: Yes ASA Class: III Final Preanesthetic Review: Meds/Allgs Chart Reviewed, Consent Obtained/Reviewed and Anes Risks/Benef Reviewed Patient Risk: Intermediate Procedure Risk: Low Anesthetic Plan Anesthetic Plan: MAC: Disposition: Standard PACU
[2022-12-23] VITALS (7 sets, daily range): BP systolic 98–142; BP diastolic 64–93; PULSE 72–92; RESP 16–18; TEMP 36.1–36.4; O2SAT 93–98; BMI 30.1
--- NOTE | ~2022-12-23 | XR_ITS ---
EXAMINATION: XR ABDOMEN KUB CLINICAL INDICATION: Right kidney stone. COMPARISON: KUB from 07/09/2021 and renal ultrasound from 07/03/2022 TECHNIQUE: AP view of the abdomen. FINDINGS: Evaluation the kidneys is partially limited by overlying bowel. There appear to be several small calyceal stones of both kidneys, and some of the calculi are clustered. The individual stones all appear to measure less than 0.4 cm. Bowel gas pattern is normal. Cholecystectomy clips in right upper quadrant of the abdomen. Electrodes project over the lower thoracic spinal canal. Prior posterior instrumented spinal fusion at L5-S1. XR/XR KUB IMPRESSION: There appear to be multiple small calyceal stones of both kidneys. No interval development of any large renal stones.
[2022-12-23] MEDS: Lactated Ringers 1,000 ML 100 ML IVCONT (07:18)
--- NOTE | 2022-12-23 08:09 | MHC.SHP ---
Pre-Procedural Eval Section A Date of Service: 12/23/22 The patient is an INPATIENT: No Changes since office visit: No Cold of Flu in the past 2 weeks, No New Medical Problems, No Changes in Medication and No Patient answered all questions The History & Physical has been completed within 30 days and I have reviewed it.: Yes Section B Chief Complaint: Calculus of kidney Details of Present Illness: right renal stone Allergies: Allergies Allergy/AdvReac Type Severity Reaction Status Date / Time clindamycin Allergy Intermediate Gastrointestinal Verified 12/23/22 06:54 Upset latex [LATEX] Allergy Intermediate RASH Verified 12/23/22 06:54 Penicillins [PENICILLINS] Allergy Intermediate RASH/HIVES Verified 12/23/22 06:54 Sulfa (Sulfonamide Allergy Intermediate HIVES, Verified 12/23/22 06:54 Antibiotics) hospitalized, [SULFA(SULFONAMIDE edema ANTIBIOTICS)] codeine [CODEINE] AdvReac Intermediate NAUSEA Verified 12/23/22 06:54 Plan Diagnosis/Plan: Unchanged (right eswl) I have reviewed the history and physical and performed a pertinent physical examination on my patient. No changes have occurred unless specified. Time Spent With Patient Time: Total time managing care of this patient today ____ minutes.
--- NOTE | 2022-12-23 08:25 | W.PM.OPN ---
Operative Note Operative Note Date of Service: 12/23/22 Narrative: PreOperative Diagnosis: right Renal stones Post Operative Diagnosis: right Renal stones Procedure: right ESWL Surgeon: Dr Joe Contreras Anesthesia: mac/sedation Indications for procedure: The patient understands ESWL may be a staged procedure and subsequent intervention may be required based on imaging after ESWL. Quoted stone clearance rates for a solitary procedure are in the 70-80% range based primarily on stone location. They also understand there is a risk of bleeding to the kidney, infection, damage to adjacent organs, and stone migration following the procedure. - Imaging 3 stones on right 1 stone on left 7mm Procedure: After informed consent was verified the patient was brought to the operating room and placed in a supine position. Anesthesia was performed per protocol. Safety pause time-out was performed. Imaging was displayed in the room and laterality confirmed. ESWL was performed. The 1st 500 shocks were performed at 60 hertz. These were performed with increasing power. Once maximum power was reached the rate was increased to 180 hertz. A total of 2500 shocks were given. Targeted imaging with ultrasound/fluoroscopy showed stone smudging suggestive of disintegration. The patient tolerated the procedure well and was transferred to the recovery area upon completion. Post procedure imaging will be organized. There was no evidence for flank discoloration.
== END 2022-12-23 10:33 | disposition home or self-care (01) ==
PROVIDERS: PCP Family Medicine; Visit Provider Urology
PROC: (CPT 50590; principal; 2022-12-23 08:20)
DX: N20.0 Calculus of kidney (principal); Z87.442 Personal history of urinary calculi; I25.10 Atherosclerotic heart disease of native coronary artery without angina pectoris; Z95.1 Presence of aortocoronary bypass graft; I25.2 Old myocardial infarction; Z79.82 Long term (current) use of aspirin; Z90.49 Acquired absence of other specified parts of digestive tract; Z98.84 Bariatric surgery status; Z96.82 Presence of neurostimulator; Z88.0 Allergy status to penicillin; Z88.1 Allergy status to other antibiotic agents; Z88.2 Allergy status to sulfonamides; Z88.5 Allergy status to narcotic agent; Z91.040 Latex allergy status; Z87.891 Personal history of nicotine dependence
CPT/HCPCS: 50590; 74018; J0131; J1885; J1940; J2250; J2704; J3010

== ENCOUNTER → 2022-12-23 06:33 | Outpatient (BNV) | payer OTHER, SELFPAY | PROVIDERS: PCP Family Medicine; Visit Provider Urology | DX: N20.0 Calculus of kidney (principal) | CPT/HCPCS: 50590 ==

== ENCOUNTER 2023-01-22 13:50 | Outpatient (REF) | payer OTHER, SELFPAY ==
--- NOTE | ~2023-01-22 | US_ITS ---
EXAMINATION: US RETROPERITONEAL LIMITED (RENAL ONLY) CLINICAL INFORMATION: Calculus of kidney. COMPARISON: X-ray abdomen KUB 12/23/2022. Ultrasound kidneys 07/03/2022 and 01/05/2022. CT abdomen and pelvis 01/18/2014. TECHNIQUE: Real-time imaging of the kidneys. FINDINGS: RIGHT KIDNEY: 11.2 x 5.3 x 5.2 cm (SAG x AP x TRV). The kidney is normal in size, contour, and echogenicity. Renal cortical thickness is normal. Two upper and midpole echogenic foci are seen measuring 3 to 5 mm with twinkle artifact consistent with nonobstructing calculi. No focal parenchymal lesions or hydronephrosis. LEFT KIDNEY: 12.5 x 5.2 x 5.1 cm (SAG x AP x TRV). The kidney is normal in size, contour, and echogenicity. Renal cortical thickness is normal. Three upper and lower pole echogenic foci are seen measuring 3 mm with twinkle artifact consistent with nonobstructing calculi. No focal parenchymal lesions or hydronephrosis. US/US renal BI IMPRESSION: Bilateral nonobstructing renal calculi.
== END 2023-01-22 13:51 | disposition home or self-care (01) ==
LOC: HO.US 13:50
PROVIDERS: PCP Family Medicine; Visit Provider Urology
DX: N20.0 Calculus of kidney (principal)
CPT/HCPCS: 76775

== ENCOUNTER 2023-01-29 11:48 | Outpatient (AMB) | payer OTHER, SELFPAY ==
--- NOTE | 2023-01-29 11:50 | MHC.OFFVIS ---
Intake Intake Visit Reasons: Post op 6 week ESWL/US(set) Intake Note: Patient is Present for Telephone Follow Up Urology Medication: Tamsulosin, Testosterone Antibiotic Allergies: Clindamycin, Penicillins, Sulfa Blood Thinners: Aspirin Allergies clindamycin Allergy (Intermediate, Verified 12/23/22 06:54) Gastrointestinal Upset latex [LATEX] Allergy (Intermediate, Verified 12/23/22 06:54) RASH Penicillins [PENICILLINS] Allergy (Intermediate, Verified 12/23/22 06:54) RASH/HIVES Sulfa (Sulfonamide Antibiotics) [SULFA(SULFONAMIDE ANTIBIOTICS)] Allergy (Intermediate, Verified 12/23/22 06:54) HIVES, hospitalized, edema codeine [CODEINE] Adverse Reaction (Intermediate, Verified 12/23/22 06:54) NAUSEA Medication List - Last Reconciled 01/29/23 by Joe Contreras MD allopurinol 100 mg PO DAILY 90 days aspirin 81 mg PO Q OTHER DAY carvedilol 1 tab PO BID clonazepam 1 tab PO BEDTIME PRN esomeprazole magnesium 40 mg PO DAILY ezetimibe (Zetia) 10 mg PO DAILY naproxen 500 mg PO BID PRN 7 days omeprazole 40 mg PO BID pyridoxine (vitamin B6) 50 mg PO DAILY 90 days rosuvastatin 5 mg PO 3XW safety needles (Easy Touch FlipLock Needle) As directed syringe with needle (BD Luer-Jacoby Syringe) As directed tamsulosin 0.4 mg PO BEDTIME 14 days testosterone cypionate 200 mg IM Q2W tramadol 50 mg PO Q6H PRN tramadol 50 mg PO TID PRN HPI HPI Comments History of Present Illness Details Butch is a pleasant male. He is a patient of Dr Soto. 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 Telemedicine Evaluation 15 min Consultation [employer] Betty Video attempted Right-sided ESWL follow-up Start allopurinol and vitamin B6 Hypogonadism Testosterone replacement ongoing Labs 05/29 T 569, PSA 2.6, 11/28 T1500 4.3, 07/30 T 390 2.2, 06/30 860 Did have elevation August 2020 with UTI - PSA 27 Injection Day - Lab Day Wed Current therapy testosterone injections administers injection every 2 weeks Nephrolithiasis Longstanding Multiple prior procedures Imaging - 07/31 right 7 mm stones, left 3 mm stone - 01/30 renal ultrasound bilateral 3 mm stones 24 hour urine - 06/30 adequate volume 1.6 L, low citrate Intervention - 10/31 right ESWL BPH Prior laser prostate procedure 2018 Did have bladder neck contracture Off Flomax Cystoscopy 06/28 open with TURP defect PFSH Medical History Elevated cholesterol Skin cancer H/O supraventricular tachycardia Back pain Hyponatremia Synovial cyst Bipolar disorder Larson esophagus GERD (gastroesophageal reflux disease) Other obstructive and reflux uropathy Benign prostatic hyperplasia with lower urinary tract symptoms Hypogonadism in male Former smoker Anxiety Depression Kidney stones Hiatal hernia Sleep apnea Myocardial infarct CAD (coronary artery disease) Surgical History S/P insertion of spinal cord stimulator Hx of tonsillectomy History of esophagogastroduodenoscopy (EGD) H/O colonoscopy H/O hernia repair H/O gastric bypass History of coronary artery bypass surgery History of lithotripsy History of spinal fusion History of cholecystectomy History of appendectomy Social History Alcohol intake: former Patient Tobacco Use Status: Former Tobacco user Quit Date: 2013 Review of Systems Const All systems reviewed & are unremarkable except as noted in HPI and below Reports no additional complaints Resp Reports no additional complaints GI Reports no additional complaints Reports as per HPI Musc Reports no additional complaints Physical Exam Telemedicine evaluation Appropriate responses Regular breathing rate and rhythm HEENT Head: Yes normal to inspection Ears: hearing grossly normal bilaterally Eyes General: appearance normal, both eyes and all related structures Neck Neck: Yes normal visual inspection Chest Chest palpation & inspection: normal inspection of the chest Resp Effort & Inspection: normal respiratory effort and able to speak in complete sentences Assessment & Plan Assessment & Plan (1) Hypogonadism in male: Code(s): E29.1 - Testicular hypofunction (2) Benign prostatic hyperplasia with lower urinary tract symptoms: Code(s): N40.1 - Benign prostatic hyperplasia with lower urinary tract symptoms (3) Kidney stones: Code(s): N20.0 - Calculus of kidney Plan Six month follow-up imaging Orders: Orders US renal BI 6 Months N20.0 - Calculus of kidney XR KUB 6 Months N20.0 - Calculus of kidney Medications: New allopurinol 100 mg PO DAILY 90 tabs 1RF 90 days N20.0 - Calculus of kidney pyridoxine (vitamin B6) 50 mg PO DAILY 90 tabs 1RF 90 days N20.0 - Calculus of kidney Patient Instructions: Imaging studies, laboratory and physical exam results were discussed and reviewed in detail. No major barriers to patient understanding were identified. An opportunity to ask questions regarding the treatment plan was provided. All questions were answered. The patient expressed understanding and agreement with the above treatment plan. The patient is aware they should contact our office by phone for worsening of their current condition or the appearance of new urologic symptoms. Compliance is encouraged with any medications and followup testing that is ordered. It is a privilege to participate in the urologic care of your patient. If you have any questions or concerns regarding treatment for the above conditions, or other urologic issues, please do not hesitate to contact me. The office telephone contact is [phone]. This note is constructed using voice recognition software. While every effort has been made to ensure accuracy exhauster engineer errors may have been included. Yours sincerely, Dr Joe Contreras MD, [facility] - Urology Providers of Expert, Compassionate Care for the Genitourinary System Telehealth Telehealth Location of provider rendering services: practice address Location of patient: address on file Patient Identification confirmed using: Name, : Yes Telehealth method: video Patient verbally consented to treatment: Yes Patient verbally consented to billing insurance company: Yes Patient informed of any privacy concerns related to visit: Yes Coding Level of Care Code Tele Est Pt Level 4 (29789) Diagnoses Hypogonadism in male E29.1 Benign prostatic hyperplasia with lower urinary tract symptoms N40.1 Kidney stones N20.0
== END 2023-01-29 13:10 | disposition home or self-care (01) ==
LOC: HO.HUSH 11:48
PROVIDERS: PCP Family Medicine; Visit Provider Urology
DX: E29.1 Testicular hypofunction (principal); N40.1 Benign prostatic hyperplasia with lower urinary tract symptoms; N20.0 Calculus of kidney
CPT/HCPCS: 99024

== ENCOUNTER → 2023-01-29 11:48 | Outpatient (BNVA) | payer OTHER, SELFPAY | PROVIDERS: PCP Family Medicine; Visit Provider Urology ==

== ENCOUNTER 2023-07-28 07:38 | Outpatient (REF) | payer OTHER, SELFPAY ==
--- NOTE | ~2023-07-28 | US_ITS ---
EXAMINATION: US RETROPERITONEAL LIMITED (RENAL ONLY) CLINICAL INFORMATION: Calculus of kidney. COMPARISON: Renal ultrasound 01/22/2023 and 07/03/2022. TECHNIQUE: Real-time imaging of the kidneys. FINDINGS: RIGHT KIDNEY: 10.7 x 5.0 x 4.7 cm (SAG x AP x TRV). The kidney is normal in size, contour, and echogenicity. Renal cortical thickness is normal. No focal parenchymal lesions or hydronephrosis. 6 mm lower pole and 4 mm mid kidney nonobstructing calculi. LEFT KIDNEY: 12.4 x 5.6 x 6.1 cm (SAG x AP x TRV). The kidney is normal in size, contour, and echogenicity. Renal cortical thickness is normal. No focal parenchymal lesions or hydronephrosis. 3 mm lower pole and 3 mm upper pole nonobstructing calculi. US/US renal BI IMPRESSION: Bilateral nonobstructing renal calculi. No hydronephrosis.
--- NOTE | ~2023-07-28 | XR_ITS ---
EXAMINATION: XR ABDOMEN KUB CLINICAL INDICATION: Calculus of kidney. COMPARISON: 12/23/2022 radiograph, 01/22/2023 renal ultrasound. TECHNIQUE: 2 AP views of the abdomen. FINDINGS: Nonobstructive bowel gas pattern moderate amount of stool the colon. Surgical clips in the right upper quadrant. Redemonstration of hardware status post instrumented spinal fusion at L5-S1. Redemonstration of electrode incompletely imaged overlying the lower thoracic spine. Several small clusters of calculi overlie the bilateral kidneys, largest appear to measure less than 4 mm. Limited visualization due to overlying bowel. XR/XR KUB IMPRESSION: Several small clusters of calculi overlie the bilateral kidneys, largest appear to measure less than 4 mm.
== END 2023-07-28 07:39 | disposition home or self-care (01) ==
LOC: HO.US 07:38
PROVIDERS: PCP Family Medicine; Visit Provider Urology
DX: N20.0 Calculus of kidney (principal)
CPT/HCPCS: 74018; 76775

== ENCOUNTER 2023-08-03 11:31 | Outpatient (AMB) | payer OTHER, SELFPAY ==
--- NOTE | 2023-08-03 11:14 | A.OFFVIS_ITS ---
Intake Visit Reasons: 6M LABS/US(SET) Intake Note: Patient is present for 6 month F/U labs and US Urology Medication:tamsulosin,testosterone cypionate Antibiotic Allergy:penicillin Blood Thinner:aspirin Surveillance Technician Required: No Allergies clindamycin Allergy (Intermediate, Verified 08/03/23 11:19) Gastrointestinal Upset latex [LATEX] Allergy (Intermediate, Verified 08/03/23 11:19) RASH Penicillins [PENICILLINS] Allergy (Intermediate, Verified 08/03/23 11:19) RASH/HIVES Sulfa (Sulfonamide Antibiotics) [SULFA(SULFONAMIDE ANTIBIOTICS)] Allergy (Intermediate, Verified 08/03/23 11:19) HIVES, hospitalized, edema codeine [CODEINE] Adverse Reaction (Intermediate, Verified 08/03/23 11:19) NAUSEA HPI Comments Details: Butch is a pleasant male. He is a patient of Dr Soto. 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 Nephrolithiasis follow-up - on allopurinol and vitamin B6 Discussed lab work - had labs 2 days before last shot Refill testosterone and allopurinol Hypogonadism Testosterone replacement ongoing Labs 05/29 T 569, PSA 2.6, 11/28 T1500 4.3, 07/30 T 390 2.2, 06/30 860 Did have elevation August 2020 with UTI - PSA 27 Injection Day - Lab Day Wed Current therapy testosterone injections administers injection every 2 weeks Nephrolithiasis Longstanding Multiple prior procedures Imaging - 07/31 right 7 mm stones, left 3 mm stone - 01/30 renal ultrasound bilateral 3 mm stones - 08/01 renal ultrasound bilateral stones 6 mm right, left 3 mm 24 hour urine - 06/30 adequate volume 1.6 L, low citrate Intervention - 10/31 right ESWL Lower urinary tract Prior laser prostate procedure 2017 Did have bladder neck contracture Off Flomax Cystoscopy 06/28 open with TURP defect [facility] Medical History Elevated cholesterol Skin cancer H/O supraventricular tachycardia Back pain Hyponatremia Synovial cyst Bipolar disorder Larson esophagus GERD (gastroesophageal reflux disease) Other obstructive and reflux uropathy Benign prostatic hyperplasia with lower urinary tract symptoms Hypogonadism in male Former smoker Anxiety Depression Kidney stones Hiatal hernia Sleep apnea Myocardial infarct CAD (coronary artery disease) Surgical History S/P insertion of spinal cord stimulator Hx of tonsillectomy History of esophagogastroduodenoscopy (EGD) H/O colonoscopy H/O hernia repair H/O gastric bypass History of coronary artery bypass surgery History of lithotripsy History of spinal fusion History of cholecystectomy History of appendectomy Social History Alcohol intake: former Patient Tobacco Use Status: Former Tobacco user Review of Systems Const Denies chills and Denies fever(s) Card Reports no additional complaints and Denies syncope Resp Denies cough GI Denies abdominal pain and Denies heartburn Reports as per HPI and Denies change in libido Neuro Denies syncope Psych Denies change in libido Endo Denies change in libido Physical Exam Const General: cooperative, healthy appearing, comfortable and no acute distress Orientation/consciousness: patient oriented x3 HEENT Face and sinus: Yes normal facial exam Mouth: moist mucous membranes Neck Neck: Yes normal visual inspection, Yes full ROM and Yes trachea midline Chest Chest palpation & inspection: normal inspection of the chest Resp Effort & Inspection: normal respiratory effort, able to speak in complete sentences and no respiratory distress GI Inspection: Yes normal to inspection Back/Spine/Pelvis Cervical Spine: normal cervical lordosis Thoracic/Lumbar Spine: thoracic and lumbar spine normal to inspection Skin General skin exam: no rashes or lesions noted Neuro General: patient oriented x3, gait normal, tone normal and moves all extremities Extrem General: Yes normal to inspection and Yes capillary refill normal Assessment & Plan Assessment & Plan (1) Kidney stones: Code(s): N20.0 - Calculus of kidney Category: Medical (2) Hypogonadism in male: Code(s): E29.1 - Testicular hypofunction Category: Medical (3) Benign prostatic hyperplasia with lower urinary tract symptoms: Code(s): N40.1 - Benign prostatic hyperplasia with lower urinary tract symptoms Category: Medical Plan Six-month follow-up lab work Orders: Orders Prostate Specific Antigen 07/12/23 Z12.5 - Encounter for screening for malignant neoplasm of prostate Testosterone, Free/Total 07/12/23 E29.1 - Testicular hypofunction Patient Instructions: Imaging studies, laboratory and physical exam results were discussed and reviewed in detail. No major barriers to patient understanding were identified. An opportunity to ask questions regarding the treatment plan was provided. All questions were answered. The patient expressed understanding and agreement with the above treatment plan. The patient is aware they should contact our office by phone for worsening of their current condition or the appearance of new urologic symptoms. Compliance is encouraged with any medications and followup testing that is ordered. It is a privilege to participate in the urologic care of your patient. If you have any questions or concerns regarding treatment for the above conditions, or other urologic issues, please do not hesitate to contact me. The office telephone contact is [phone]. This note is constructed using voice recognition software. While every effort has been made to ensure accuracy supervisor sandblaster errors may have been included. Yours sincerely, Dr Joe Contreras MD, [facility] - Urology Providers of Expert, Compassionate Care for the Genitourinary System Coding Level of Care Code Est Pt Level 3 (35101) Diagnoses Kidney stones N20.0 Hypogonadism in male E29.1 Benign prostatic hyperplasia with lower urinary tract symptoms N40.1
== END 2023-08-03 12:02 | disposition home or self-care (01) ==
PROVIDERS: PCP Family Medicine; Visit Provider Urology
DX: N20.0 Calculus of kidney (principal); E29.1 Testicular hypofunction; N40.1 Benign prostatic hyperplasia with lower urinary tract symptoms
CPT/HCPCS: 99213

== ENCOUNTER → 2023-08-03 11:31 | Outpatient (BNVA) | payer OTHER, SELFPAY | PROVIDERS: PCP Family Medicine; Visit Provider Urology ==

== ENCOUNTER 2024-02-01 09:19 | Outpatient (AMB) | payer OTHER, SELFPAY ==
--- NOTE | 2024-02-01 09:19 | MHC.OFFVIS ---
Intake Visit Reasons: 6M PSA/Testo(Set)Elevated PSA Intake Note: Patient is present for 6M PSA/TESO/ELEVATED PSA Urology Medication:TESTOSTERONE,TRAMADOL,VITAMIN B6,ALLOPURINOL Antibiotic Allergy:CLINDAMYCIN,PENICILLIN,SULFA Blood Thinner:ASPIRIN Telesales Professional Required: No Allergies clindamycin Allergy (Intermediate, Verified 02/01/24 09:20) Gastrointestinal Upset latex [LATEX] Allergy (Intermediate, Verified 02/01/24 09:20) RASH Penicillins [PENICILLINS] Allergy (Intermediate, Verified 02/01/24 09:20) RASH/HIVES Sulfa (Sulfonamide Antibiotics) [SULFA(SULFONAMIDE ANTIBIOTICS)] Allergy (Intermediate, Verified 02/01/24 09:20) HIVES, hospitalized, edema codeine [CODEINE] Adverse Reaction (Intermediate, Verified 02/01/24 09:20) NAUSEA HPI Comments Details: Butch is a pleasant male. He is a patient of Dr Soto. He has have the following urologic issues - nephrolithiasis - lower urinary tract symptoms - hypogonadism - Dr. Dewey geneticist for low-sodium on fluid restriction Nephrolithiasis follow-up - on allopurinol and vitamin B6 Telemedicine Evaluation 15 min Consultation [facility] Betty Video Voiding symptoms improved after stopping tamsulosin Has slow stream but is effective with emptying Reviewed medications Six-month follow-up with renal imaging Hypogonadism Testosterone replacement ongoing Labs 05/29 T 569, PSA 2.6, 11/28 T1500 4.3, 07/30 T 390 2.2, 06/30 860, 11/01 T 1200 PSA 5.6 Did have elevation August 2020 with UTI - PSA 27 Injection Day - Lab Day Wed Current therapy testosterone injections administers injection every 2 weeks Nephrolithiasis Longstanding Multiple prior procedures Imaging - 07/31 right 7 mm stones, left 3 mm stone - 01/30 renal ultrasound bilateral 3 mm stones - 08/01 renal ultrasound bilateral stones 6 mm right, left 3 mm 24 hour urine - 06/30 adequate volume 1.6 L, low citrate Intervention - 10/31 right ESWL Lower urinary tract Prior laser prostate procedure 2017 Did have bladder neck contracture Off Flomax Cystoscopy 06/28 open with TURP defect PFSH Medical History Elevated cholesterol Skin cancer H/O supraventricular tachycardia Back pain Hyponatremia Synovial cyst Bipolar disorder Larson esophagus GERD (gastroesophageal reflux disease) Other obstructive and reflux uropathy Benign prostatic hyperplasia with lower urinary tract symptoms Hypogonadism in male Former smoker Anxiety Depression Kidney stones Hiatal hernia Sleep apnea Myocardial infarct CAD (coronary artery disease) Surgical History S/P insertion of spinal cord stimulator Hx of tonsillectomy History of esophagogastroduodenoscopy (EGD) H/O colonoscopy H/O hernia repair H/O gastric bypass History of coronary artery bypass surgery History of lithotripsy History of spinal fusion History of cholecystectomy History of appendectomy Social History Alcohol intake: former Patient Tobacco Use Status: Former Tobacco user Review of Systems Const All systems reviewed & are unremarkable except as noted in HPI and below Reports no additional complaints Resp Reports no additional complaints GI Reports no additional complaints Reports as per HPI Musc Reports no additional complaints Physical Exam Telemedicine evaluation Appropriate responses Regular breathing rate and rhythm HEENT Head: Yes normal to inspection Ears: hearing grossly normal bilaterally Eyes General: appearance normal, both eyes and all related structures Neck Neck: Yes normal visual inspection Chest Chest palpation & inspection: normal inspection of the chest Resp Effort & Inspection: normal respiratory effort and able to speak in complete sentences Telehealth Telehealth Telehealth Platform: [facility] Location of provider rendering services: practice address Location of patient: address on file Patient Identification confirmed using: Name, : Yes Telehealth method: video Patient verbally consented to treatment: Yes Patient verbally consented to billing insurance company: Yes Patient informed of any privacy concerns related to visit: Yes Minutes spent on Phone/Video with Pt.: 15 Assessment & Plan Assessment & Plan (1) Kidney stones: Code(s): N20.0 - Calculus of kidney Category: Medical (2) Hypogonadism in male: Code(s): E29.1 - Testicular hypofunction Category: Medical (3) Benign prostatic hyperplasia with lower urinary tract symptoms: Code(s): N40.1 - Benign prostatic hyperplasia with lower urinary tract symptoms Category: Medical Plan Six-month follow-up Orders: Orders Testosterone, Total 6 Months E29.1 - Testicular hypofunction Complete Blood Count no Diff 6 Months E29.1 - Testicular hypofunction US renal BI 6 Months N20.0 - Calculus of kidney Prostate Specific Antigen 6 Months E29.1 - Testicular hypofunction Medications: Refilled testosterone cypionate inject 1 ml intramuscular twice a month 200 mg IM Q2W 2 mL 5RF E29.1 - Testicular hypofunction Patient Instructions: Imaging studies, laboratory and physical exam results were discussed and reviewed in detail. No major barriers to patient understanding were identified. An opportunity to ask questions regarding the treatment plan was provided. All questions were answered. The patient expressed understanding and agreement with the above treatment plan. The patient is aware they should contact our office by phone for worsening of their current condition or the appearance of new urologic symptoms. Compliance is encouraged with any medications and followup testing that is ordered. It is a privilege to participate in the urologic care of your patient. If you have any questions or concerns regarding treatment for the above conditions, or other urologic issues, please do not hesitate to contact me. The office telephone contact is [phone]. This note is constructed using voice recognition software. While every effort has been made to ensure accuracy high school music teacher errors may have been included. Yours sincerely, Dr Joe Contreras MD, [facility] - Urology Providers of Expert, Compassionate Care for the Genitourinary System Coding Level of Care Code Tele Est Pt Level 3 (59929) Diagnoses Kidney stones N20.0 Hypogonadism in male E29.1 Benign prostatic hyperplasia with lower urinary tract symptoms N40.1
--- OUTSIDE RECORDS SUMMARY | 2024-02-01 09:22 | XMS_ITS ---
Author Organization [facility] Address [address] [place] [address] Care Team Providers Care Job Trainer Name Role Phone Álvaro Noble Primary Care Provider Kapil Aponte Jr Unavailable REASON FOR VISIT bolanos's w/o dysplasia Encounters Encounter Location Date Provider Diagnosis [facility] Outpatient [address] [place] [phone] 11/10/2022 Kapil Morris Jr Bolanos''s esophagus without dysplasia K22.70 ASSESSMENTS Encounter Date Diagnosis Assessment Notes Treatment Notes Treatment Clinical Notes 11/10/2022 Bolanos''s esophagus without dysplasia (ICD-10 - K22.70) PLAN OF TREATMENT Next Appt Details Provider Name:Kapil engle Jr, 02/25/2024 11:20:00 AM, [address] [place] [address], [phone],
--- OUTSIDE RECORDS SUMMARY | 2024-02-01 09:22 | XMS_ITS ---
Author Organization [facility] Address [address] [place] [address] Care Team Providers Care Lead Tank Mechanic Name Role Phone Álvaro Noble Primary Care Provider Kapil Aponte Jr [phone] REASON FOR VISIT pathology Encounters Encounter Location Date Provider Diagnosis [facility] [address] [place] [phone] 11/19/2022 Kapil Morris Jr PLAN OF TREATMENT Next Appt Details Provider Name:Kapil engle Jr, 02/25/2024 11:20:00 AM, [address] [place] [address] , [place], [place], [phone],
--- OUTSIDE RECORDS SUMMARY | 2024-02-01 09:22 | XMS_ITS | Patient Health Record ---
Author Organization [facility] Address [address] [place] [phone] Care Team Providers Care Dry Kiln Operator Name Role Phone Álvaro Noble Primary Care Provider Kapil Aponte Jr Unavailable [phone] ALLERGIES Allergen (clinical drug ingredient) Drug/Non Drug [...] HCl 4 MG TAKE 1 TABLET BY [facility] EVERY DAY for 30 Not-Taking FLUoxetine HCl [...] Problem Colon cancer screening (Z12.11) Active confirmed 980261886 Problem Epigastric pain (R10.13) Active confirmed 53499484 Problem Larson's esophagus without dysplasia (K22.70) Active confirmed 781440302 Problem Barretts esophagus without dysplasia (K22.70) Active confirmed 456554259 Problem Long-term use of aspirin therapy (Z79.82) Active confirmed 388246177 Problem Abnormal barium swallow (R93.3) Active confirmed 832130958 Problem Change in bowel movement (R19.8) Active confirmed 46195106 Problem Spasm of bowel (K58.9) Active confirmed 326499537 VITAL SIGNS Temperature 98.6 degrees Fahrenheit 12/27/2023 Blood pressure diastolic 00 mm Hg 12/27/2023 Height 70 in 12/27/2023 Blood pressure systolic 000 mm Hg 12/27/2023 Weight 206 lb 2 oz lbs 12/27/2023 BMI 29.57 kg/m2 12/27/2023 Encounters Encounter Location Date Provider Diagnosis [facility] [address] [place] [address] 12/27/2023 Kapil Morris Jr Change in bowel [...] Provider Name:Kapil engle Jr, 02/25/2024 11:20:00 AM, [address] [place] [address] , [place], [place], [phone], Insurance Providers Payer Name Payer Address Payer Phone Subscriber Number Group Number Insured Name Patient Relationship to Insured Coverage Start Date Coverage End Date [facility] [address] [address] [place] [phone] [id number] KEELY SAMUEL Self - patient is the insured MEDICAL (GENERAL) HISTORY Medical History History ICD Code Coronary artery disease, history of OR 2 014 Nephrolithiasis DOMONIQUE/CPAP Larson's esophagus, EGD [...]
== END 2024-02-01 09:49 | disposition home or self-care (01) ==
LOC: HO.HUSH 09:19
PROVIDERS: PCP Family Medicine; Visit Provider Urology
DX: N20.0 Calculus of kidney (principal); E29.1 Testicular hypofunction; N40.1 Benign prostatic hyperplasia with lower urinary tract symptoms
CPT/HCPCS: 99213

== ENCOUNTER 2024-02-25 09:44 | Day surgery (SDC) | payer OTHER, SELFPAY ==
--- OUTSIDE RECORDS SUMMARY | 2024-01-20 14:38 | XMS_ITS ---
Author Organization [facility] Address [address] [place] [phone] Care Team Providers Care Property Management Supervisor Name Role Phone Álvaro Noble Primary Care Provider Kapil Aponte Jr [phone] REASON FOR VISIT pathology Encounters Encounter Location Date Provider Diagnosis [facility] [address] [place] [phone] 11/19/2022 Kapil Morris Jr PLAN OF TREATMENT Next Appt Details Provider Name:Kapil engle Jr, 02/25/2024 11:20:00 AM, [address] [place] [address] , [place], [place], [phone],
--- OUTSIDE RECORDS SUMMARY | 2024-01-20 14:38 | XMS_ITS ---
Author Organization [facility] Address [address] [place] [phone] Care Team Providers Care Accident Report Clerk Name Role Phone Álvaro Noble Primary Care Provider Kapil Aponte Jr Unavailable [phone] ALLERGIES Allergen (clinical drug ingredient) Drug/Non Drug Allergy documented on EMR Reaction Allergy Type Onset Date Status codeine Codeine Unknown Drug Allergy Active Sulfa Unknown Drug Allergy Active Penicillin Unknown Drug Allergy Active Latex latex (uncoded) Unknown Allergy Acti ve REASON FOR VISIT Patient presents today for barretts esophagus MEDICATIONS Medication SIG (Take, Route, Frequency, Duration) Notes Start Date End Date Status Vitamin D3 2000 UNIT 1 capsule Orally On ce a day Active Zetia 10 MG 1 tablet Orally Once a day Active Bariatric Multivitamins/Iron Active Rosuvastatin Calcium 5 MG 1 tablet Orally Once a day Active QUEtiapine Fumarate 100 MG 100mg in am 100 mg in plm three times a day three times a day Active Hyoscyamine Sulfate 0.125 MG 1 TABLET UNDER THE TONGUE AND ALLOW TO DISSOLVE NEEDED THREE TIMES A DAY for 90 days Active Aspirin Adult Low Dose 81 MG 1 tablet Orally three times a week Active clonazePAM 0.5 MG Oral for 30 Active Allopurinol 100 MG Oral for 90 Active Ezetimibe 10 MG Oral for 90 Ac tive Esomeprazole Magnesium 40 MG TAKE 1 CAPSULE BY MOUTH EVERY DAY FOR 30 DAYS for 90 Active Ondansetron HCl 4 MG TAKE 1 TABLET BY MO UT EVERY DAY for 30 Not-Taking FLUoxetine HCl 10 MG 1 capsule Orally On ce a day Active Hyoscyamine Sulfate ER 0.375 MG TAKE 1 TABLET BY MOUTH EVERY 12 HOURS Orally every 12 hrs for 90 days Not-Hans ing Carvedilol 6.25 MG 1 tablet with food O ral Twice a day Active Testosterone Cypionate 200 MG/ML (Schedule III Drug) INJECT 1 ML INTRAMUSCULARLY EVERY 3 WEEKS Intramuscular for 21 Active SOCIAL HISTORY Tobacco Use: Social History Observation Description Date Details (start date - stop date) Former Smoker NA - NA Sex Assigned At : Social History Observation Description Sex Assigned At Unknown Tobacco Use/Smoking Question Answer Notes Patient is a former smoker How long has it been since you last smoked? 1-5 years Alcohol Screen Question Answer Notes Did you have a drink containing alcohol in the p ast year? No Points 0 Interpretation Negative PROBLEMS Problem Type ICD Code Onset Dates Problem Status W/U Status Risk SNOMED Code Notes Problem Change in bowel movement (R19.8) Active confirmed 10759586 Problem Larson's esophagus without dysplasia (K22.70) Active confirmed 448606543 VITAL SIGNS BMI 29.57 kg/m2 12/27/2023 Blood pressure systolic 000 mm Hg 12/27/19 24 Blood pressure diastolic 00 mm Hg 024 Height 70 in 12/27/2023 Temperature 98.6 degrees Fahrenheit 12/27/19 24 Weight 206 lb 2 oz lbs 12/27/2023 Encounters Encounter Location Date Provider Diagnosis [facility] [address] [place] [phone] 12/27/2023 Kapil Morris Jr Change in bowel movement R19.8 ; Spasm of bowel K58.9 and Larson's esophagus without dysplasia K22.70 ASSESSMENTS Encounter Date Diagnosis Assessment Notes Treatment Notes Treatment Clinical Notes 12/27/2023 Change in bowel movement (ICD-10 - R19.8) Colonoscopy material was printed 12/27/2023 Spasm of bowel (ICD-10 - K58.9) 12/27/2023 Larson's esophagus without dysplasia (ICD-10 - K22.70) PLAN OF TREATMENT Medication Medication Name Sig Start Date Stop Date Notes Hyoscyamine Sulfate 0.125 MG 1 TABLET UN RENE THE TONGUE AND ALLOW TO DISSOLVE NEEDED THREE TIMES A DAY for 90 days Treatment Notes Assessment Notes Change in bowel movement Colonoscopy mat erial was printed Future Test Test Name Order Date COLONOSCOPY 12/27/2023 Next Appt Details Follow Up: 1 Year, Reason: Provider Name:Kapil engle Jr, 02/25/2024 11:20:00 AM, [address] , [place], [place], [phone], Progress Notes * Examination Category Sub-Category Detail Notes General Examination GENERAL APPEARANCE: in no ac hannah distress HEAD: normocephalic EYES: sclera non-icteric NECK/THYROID: no lymphadenopathy HEART: S1, S2 normal, no mu rmurs CHEST: normal shape and exp ansion LUNGS: clear to auscultatio n bilaterally ABDOMEN: soft, nontender, non distended, bowel sounds present, no organomegaly SKIN: anicteric EXTREMITIES: no clubbing, cyanosi s, or edema PSYCH: cognitive function i ntact ORAL CAVITY: mucosa moist
--- OUTSIDE RECORDS SUMMARY | 2024-01-20 14:39 | XMS_ITS ---
Author Organization [facility] Address [address] [place] [address] Care Team Providers Care Manager Change Name Role Phone Álvaro Noble Primary Care Provider Kapil Aponte Jr Unavailable REASON FOR VISIT bolanos's w/o dysplasia Encounters Encounter Location Date Provider Diagnosis [facility] [address] [place] [phone] 11/10/2022 Kapil Morris Jr Bolanos''s esophagus without dysplasia K22.70 ASSESSMENTS Encounter Date Diagnosis Assessment Notes Treatment Notes Treatment Clinical Notes 11/10/2022 Bolanos''s esophagus without dysplasia (ICD-10 - K22.70) PLAN OF TREATMENT Next Appt Details Provider Name:Kapil engle Jr, 02/25/2024 11:20:00 AM, [address] [place] [address], [phone],
--- OUTSIDE RECORDS SUMMARY | 2024-01-20 14:39 | XMS_ITS | Patient Health Record ---
Author Organization [facility] Address [address] [place] [phone] Care Team Providers Care Eco Industrial Development Consultant Name Role Phone Álvaro Noble Primary Care Provider Kapil Aponte Jr Unavailable ALLERGIES Allergen (clinical drug ingredient) Drug/Non Drug Allergy documented on EMR Reaction Allergy Type Onset Date Status codeine Codeine Unknown Drug Allergy Active Sulfa Unknown Drug Allergy Active Penicillin Unknown Drug Allergy Active Latex latex (uncoded) Unknown Allergy Acti ve REASON FOR REFERRAL No Information MEDICATIONS Medication SIG (Take, Route, Frequency, Duration) Notes Start Date End Date Status Vitamin D3 2000 UNIT 1 capsule Orally On ce a day Active clonazePAM 0.5 MG Oral for 30 Active Zetia 10 MG 1 tablet Orally Once a day Active Allopurinol 100 MG Oral for 90 Active Bariatric Multivitamins/Iron Active Hyoscyamine Sulfate ER 0.375 MG TAKE 1 TABLET BY MOUTH EVERY 12 HOURS Orally every 12 hrs for 90 days Not-Hans ing Rosuvastatin Calcium 5 MG 1 tablet Orally Once a day Active Ezetimibe 10 MG Oral for 90 Ac tive Carvedilol 6.25 MG 1 tablet with food O ral Twice a day Active QUEtiapine Fumarate 100 MG 100mg in am 100 mg in plm three times a day three times a day Active Testosterone Cypionate 200 MG/ML (Schedule III Drug) INJECT 1 ML INTRAMUSCULARLY EVERY 3 WEEKS Intramuscular for 21 Active Hyoscyamine Sulfate 0.125 MG 1 TABLET UNDER THE TONGUE AND ALLOW TO DISSOLVE NEEDED THREE TIMES A DAY for 90 days Active Esomeprazole Magnesium 40 MG TAKE 1 CAPSULE BY MOUTH EVERY DAY FOR 30 DAYS for 90 Active Aspirin Adult Low Dose 81 MG 1 tablet Orally three times a week Active Ondansetron HCl 4 MG TAKE 1 TABLET BY [facility] EVERY DAY for 30 Not-Taking FLUoxetine HCl 10 MG 1 capsule Orally On a day Active IMMUNIZATIONS Vaccine Route Administration Date Status Comme nts Influenza Unknown 11/09/2018 Administered Influenza Unknown 10/10/2019 Administered Influenza Unknown 11/27/2020 Administered Influenza Unknown 03/11/2021 Administered Influenza Unknown 12/14/2023 Administered SOCIAL HISTORY Tobacco Use: Social History Observation [...] W/U Status Risk SNOMED Code Notes Problem Colon cancer screening (Z12.11) Active confirmed 972101047 Problem Epigastric pain (R10.13) Active confirmed 84008469 Problem Larson's esophagus without dysplasia (K22.70) Active confirmed 458169488 Problem Barretts esophagus without dysplasia (K22.70) Active confirmed 077119294 Problem Long-term use of aspirin therapy (Z79.82) Active confirmed 772409906 Problem Abnormal barium swallow (R93.3) Active confirmed 405360998 Problem Change in bowel movement (R19.8) Active confirmed 34136277 Problem Spasm of bowel (K58.9) Active confirmed 304101144 VITAL SIGNS Temperature 98.6 degrees Fahrenheit 12/27/2023 Blood pressure diastolic 00 mm Hg 12/27/2023 Height 70 in 12/27/2023 Blood pressure systolic 000 mm Hg 12/27/2023 Weight 206 lb 2 oz lbs 12/27/2023 BMI 29.57 kg/m2 12/27/2023 Encounters Encounter Location Date Provider Diagnosis [facility] [address] [place] [address] 12/27/2023 Kapil Morris Jr Change in bowel movement R19.8 ; Spasm of bowel K58.9 and Larson's esophagus without dysplasia K22.70 ASSESSMENTS Encounter Date Diagnosis Assessment Notes Treatment Notes Treatment Clinical Notes 12/27/2023 Change in bowel movement (ICD-10 - R19.8) Colonoscopy material was printed 12/27/2023 Spasm of bowel (ICD-10 - K58.9) 12/27/2023 Larson's esophagus without dysplasia (ICD-10 - K22.70) PLAN OF TREATMENT Future Test Test Name Order Date UPPER GI ENDOSCOPY 11/11/2017 COLONOSCOPY 11/11/2017 UPPER GI ENDOSCOPY 11/02/2019 UPPER GI ENDOSCOPY 09/28/2022 COLONOSCOPY 12/27/2023 Next Appt Details Provider Name:Kapil engle Jr, 02/25/2024 11:20:00 AM, [address] [place] [address] , [place], [place], [phone], Insurance Providers Payer Name Payer Address Payer Phone Subscriber Number Group Number Insured Name Patient Relationship to Insured Coverage Start Date Coverage End Date [facility] [address] [place] [phone] [id number] KEELY SAMUEL Self - patient is the insured MEDICAL (GENERAL) HISTORY Medical History History ICD Code Coronary artery disease, history of [place] 2 014 Nephrolithiasis DOMONIQUE/CPAP Larson's esophagus, EGD 11/10/22 , 6 cm segment of Larson's, hiatal hernia with paraesophageal component, no dysplasia on biopsies, repeat endoscopy 3-5 years. Squamous cell carcinoma Anxiety/depression/bipolar Synovial cyst colonoscopy 01/25, normal, ten-year foll owup recommended Hyponatremia Pneumonia Back pain Surgical History Surgery Date(Month/Year) tonsillectomy 1964 appendectomy 2000 cholecystectomy 2001 Multiple spinal surgeries 2018 CABG x4 2013 Gastric sleeve 2059 lithotripsy 2019 hiatal hernia repair 2021 Hospitalization History Reason Date(Month/Year) 2 hospital stays for pneumonia aspiratio n
[2024-02-23 13:59] VITALS: BMI 29.6
--- NOTE | 2024-02-24 12:27 | HO.ANESPROP2 ---
Documented by User: Maritza Montenegro NP 02/24/24 12:32 HPI - Anesthesia Eval Consult details Narrative: 68yo M for Colonoscopy CAD s/p CABG 2013. Follows [facility]. Stable at yearly routine visit 02/2023. Routine stress echo rev'd as nml by marine painter. [facility] Active Problems Active Problems: All Active Problems Screening PSA (prostate specific antigen) (Acute) Kidney stones (Acute) Hypogonadism in male (Acute) Benign prostatic hyperplasia with lower urinary tract symptoms (Acute) Past Medical History Medical History Elevated cholesterol Skin cancer H/O supraventricular tachycardia Back pain Hyponatremia Synovial cyst Bipolar disorder Larson esophagus GERD (gastroesophageal reflux disease) Other obstructive and reflux uropathy Benign prostatic hyperplasia with lower urinary tract symptoms Hypogonadism in male Former smoker Anxiety Depression Kidney stones Hiatal hernia Sleep apnea Myocardial infarct CAD (coronary artery disease) Family History Family history of problems with anesthesia: No Surgical History Surgical History S/P insertion of spinal cord stimulator Hx of tonsillectomy History of esophagogastroduodenoscopy (EGD) H/O colonoscopy H/O hernia repair H/O gastric bypass History of coronary artery bypass surgery History of lithotripsy History of spinal fusion History of cholecystectomy History of appendectomy History of Problems with Anesthesia: No (PONV with GA) Social History Social History Alcohol intake: former Patient Tobacco Use Status: Former Tobacco user Meds Allergies Allergy/AdvReac Type Severity Reaction Status Date / Time clindamycin Allergy Intermediate Gastrointestinal Verified 02/01/24 09:20 Upset latex [LATEX] Allergy Intermediate RASH Verified 02/01/24 09:20 Penicillins [PENICILLINS] Allergy Intermediate RASH/HIVES Verified 02/01/24 09:20 Sulfa (Sulfonamide Allergy Intermediate HIVES, Verified 02/01/24 09:20 Antibiotics) hospitalized, [SULFA(SULFONAMIDE edema ANTIBIOTICS)] codeine [CODEINE] AdvReac Intermediate NAUSEA Verified 02/01/24 09:20 Home Medications ?Medication ?Instructions ?Recorded ?Confirmed ?Last Taken ?Type aspirin 81 mg tablet 81 mg PO Q OTHER DAY 11/16/19 02/23/24 12/09/22 History clonazepam 1 mg tablet 1 tab PO BEDTIME PRN Sleep 11/16/19 02/23/24 Unknown History ezetimibe 10 mg tablet (Zetia) 10 mg PO DAILY 11/16/19 02/23/24 Unknown History rosuvastatin 5 mg tablet 5 mg PO 3XW 11/16/19 02/23/24 Unknown History carvedilol 6.25 mg tablet 1 tab PO BID 11/17/19 02/23/24 12/23/22 05:00 History tramadol 50 mg tablet 50 mg PO TID PRN Pain 08/07/21 01/29/23 Unknown History esomeprazole magnesium 40 mg 40 mg PO DAILY 11/09/22 02/23/24 Unknown History capsule,delayed release omeprazole 40 mg capsule,delayed 40 mg PO BID 12/01/22 02/23/24 Unknown History release Exam Height,Weight and Vital Signs: Height 5 ft 10 in Weight 93.44 kg Narrative Narrative: Stress ECHO 04/2023 stress echo reviewed.? 7 METS, avg functional capacity, no CP, no ST changes.? echo images show resting anterior/anteroseptal wma; fixed at stress.? no LV augmentation, but images were obtained w/ slow HRs.? will call this neg for ischemia.? EKG 09/2023 (during [facility] admit for sepsis pna) ST @ 149 Previously NSR 2022 Assessment and Plan Assessment Anesthesia Assessment: Chart Reviewed Final Anesthetic Review Family History of Problems with Anesthesia: No History of Problems with Anesthesia: No (PONV with GA) Documented by User: Mariel Leahy MD 02/25/24 09:22 [facility] Past Medical History Medical History Elevated cholesterol Skin cancer H/O supraventricular tachycardia Back pain Hyponatremia Synovial cyst Bipolar disorder Larson esophagus GERD (gastroesophageal reflux disease) Other obstructive and reflux uropathy Benign prostatic hyperplasia with lower urinary tract symptoms Hypogonadism in male Former smoker Anxiety Depression Kidney stones Hiatal hernia Sleep apnea Myocardial infarct CAD (coronary artery disease) Surgical History Surgical History S/P insertion of spinal cord stimulator Hx of tonsillectomy History of esophagogastroduodenoscopy (EGD) H/O colonoscopy H/O hernia repair H/O gastric bypass History of coronary artery bypass surgery History of lithotripsy History of spinal fusion History of cholecystectomy History of appendectomy Social History Social History Alcohol intake: former Patient Tobacco Use Status: Former Tobacco user Meds Allergies Allergy/AdvReac Type Severity Reaction Status Date / Time clindamycin Allergy Intermediate Gastrointestinal Verified 02/01/24 09:20 Upset latex [LATEX] Allergy Intermediate RASH Verified 02/01/24 09:20 Penicillins [PENICILLINS] Allergy Intermediate RASH/HIVES Verified 02/01/24 09:20 Sulfa (Sulfonamide Allergy Intermediate HIVES, Verified 02/01/24 09:20 Antibiotics) hospitalized, [SULFA(SULFONAMIDE edema ANTIBIOTICS)] codeine [CODEINE] AdvReac Intermediate NAUSEA Verified 02/01/24 09:20 Home Medications ?Medication ?Instructions ?Recorded ?Confirmed ?Last Taken ?Type aspirin 81 mg tablet 81 mg PO Q OTHER DAY 11/16/19 02/23/24 12/09/22 History clonazepam 1 mg tablet 1 tab PO BEDTIME PRN Sleep 11/16/19 02/23/24 Unknown History ezetimibe 10 mg tablet (Zetia) 10 mg PO DAILY 11/16/19 02/23/24 Unknown History rosuvastatin 5 mg tablet 5 mg PO 3XW 11/16/19 02/23/24 Unknown History carvedilol 6.25 mg tablet 1 tab PO BID 11/17/19 02/23/24 12/23/22 05:00 History tramadol 50 mg tablet 50 mg PO TID PRN Pain 08/07/21 01/29/23 Unknown History esomeprazole magnesium 40 mg 40 mg PO DAILY 11/09/22 02/23/24 Unknown History capsule,delayed release omeprazole 40 mg capsule,delayed 40 mg PO BID 12/01/22 02/23/24 Unknown History release Exam Airway Mallampati Class: II TM Dist: >3cm Neck ROM: Full Heart: RRR Lungs: CTA Assessment and Plan Assessment Anesthesia Assessment: Anesthesia Plan Discussed Final Anesthetic Review NPO: Yes ASA Class: III Final Preanesthetic Review: No Changes in Pt Med Stat, Meds/Allgs Chart Reviewed, Consent Obtained/Reviewed and Anes Risks/Benef Reviewed Patient Risk: Intermediate Procedure Risk: Low Anesthetic Plan Anesthetic Plan: MAC: Disposition: Standard PACU
[2024-02-25 10:45] VITALS: BP 136/91; PULSE 84; RESP 14; TEMP 36.7; O2SAT 96
--- NOTE | 2024-02-25 11:06 | MHC.SHP ---
Pre-Procedural Eval Section A - 24 Hr Update-Section A only Date of Service: 02/25/24 Section B - Complete if H&P > 30 days Chief Complaint: Other specified symptoms and signs involving Details of Present Illness: see H&P no changes Relevant Family History (Specify if Yes): No Relevant Social History: None Present Medications: see Short Stay Collaborative assessment Medical History: No relevant PMH History of Previous Operations: Relevant previous surgery/procedure and date(s) Allergies: Allergies Allergy/AdvReac Type Severity Reaction Status Date / Time clindamycin Allergy Intermediate Gastrointestinal Verified 02/25/24 10:23 Upset latex [LATEX] Allergy Intermediate RASH Verified 02/25/24 10:23 Penicillins [PENICILLINS] Allergy Intermediate RASH/HIVES Verified 02/25/24 10:23 Sulfa (Sulfonamide Allergy Intermediate HIVES, Verified 02/25/24 10:23 Antibiotics) hospitalized, [SULFA(SULFONAMIDE edema ANTIBIOTICS)] codeine [CODEINE] AdvReac Intermediate NAUSEA Verified 02/25/24 10:23 Review of Systems Sugical H&P ROS: Negative: Constitution, Cardiovascular, Respiratory, Neurological, Psychiatric, Hem-Onc, Allergic/Immunologic, Gastrointestinal, Genitourinary, Musculoskeletal, Integumentary, Endocrine and Eyes/Ears/Nose/Throat Exam Surgical H&P Exam: Normal: HEENT, Normal: Heart, Normal: Lungs, Normal: Extremities, Normal: Abdomen, Normal: Skin and Normal: Neurological Plan Diagnosis/Plan: Unchanged I have reviewed the history and physical and performed a pertinent physical examination on my patient. No changes have occurred unless specified. Time Spent With Patient Time: Total time managing care of this patient today ____ minutes.
[2024-02-25] MEDS: Lactated Ringers 1,000 ML 100 ML IVCONT (11:10)
[2024-02-25 11:34] VITALS: BP 100/67; PULSE 90; RESP 12; TEMP 36.1; O2SAT 97
[2024-02-25 11:49] VITALS: BP 114/76; PULSE 75; RESP 18; TEMP 36.1; O2SAT 95
--- NOTE | 2024-02-25 12:30 | OP_ITS ---
DATE OF SERVICE: 02/25/2024 SURGEON: Kapil Morris MD INDICATIONS: Change in bowel movements. PREOPERATIVE DIAGNOSIS: POSTOPERATIVE DIAGNOSIS: PROCEDURE PERFORMED: Colonoscopy to the terminal ileum with biopsy. ESTIMATED BLOOD LOSS: COMPLICATIONS: ANESTHESIA: Monitored anesthesia care. ASSISTANTS: SPECIMENS: DESCRIPTION OF PROCEDURE: History and physical was performed. The risks and benefits of the procedure were explained to the patient. Informed consent was obtained. The patient was placed in the left lateral decubitus position. A digital rectal exam was performed and was found to be normal. The Olympus pediatric video colonoscope was introduced into the rectum and advanced to the cecum. The cecum was identified by transillumination, palpation, and identification of ileocecal valve. Examination was performed. The scope was removed. He tolerated the procedure well and was returned to recovery area in stable condition. FINDINGS: The terminal ileum was examined and appeared normal. The visualized colonic mucosa was within normal limits. There was no evidence of masses or ulcers. A single polyp measuring less than 5 mm was identified in the cecum and removed with biopsy forceps. Random sigmoid biopsies were obtained because of the patient's history of change in bowel movements. There was mild sigmoid diverticulosis. Retroflexed examination showed some small internal hemorrhoids. IMPRESSION: Colon polyp. RECOMMENDATIONS: Follow up with the biopsy results. MD BK Lenz/ILDEFONSO / [id number]
== END 2024-02-25 12:26 | disposition home or self-care (01) ==
PROVIDERS: PCP Family Medicine; Visit Provider Internal Medicine Gastroenterology
PROC: 0DJD8ZZ Inspection of Lower Intestinal Tract, Via Natural or Artificial Opening Endoscopic (ICD-10-PCS; CPT 45378; principal; 2024-02-25 11:20)
DX: R19.4 Change in bowel habit (principal); D12.0 Benign neoplasm of cecum; K57.30 Diverticulosis of large intestine without perforation or abscess without bleeding; K64.8 Other hemorrhoids; R19.7 Diarrhea, unspecified; K22.70 Barrett's esophagus without dysplasia; K21.9 Gastro-esophageal reflux disease without esophagitis; K44.9 Diaphragmatic hernia without obstruction or gangrene; I25.10 Atherosclerotic heart disease of native coronary artery without angina pectoris; Z95.1 Presence of aortocoronary bypass graft; I25.2 Old myocardial infarction; G47.33 Obstructive sleep apnea (adult) (pediatric); Z85.828 Personal history of other malignant neoplasm of skin; Z87.01 Personal history of pneumonia (recurrent); Z79.899 Other long term (current) drug therapy; Z98.84 Bariatric surgery status; Z98.890 Other specified postprocedural states; Z87.891 Personal history of nicotine dependence
CPT/HCPCS: 45380; 88305; J2003; J2250; J2704

== ENCOUNTER 2024-06-13 13:42 | Outpatient (REF) | payer OTHER, SELFPAY ==
--- NOTE | ~2024-06-13 | CT_ITS ---
CLINICAL HISTORY: ABDOMINAL PAIN CT ABDOMEN AND PELVIS WITH CONTRAST Comparison: None Findings: No basilar consolidation or pleural effusion. No acute abnormalities in the solid organs. Multiple 1-3 mm nonobstructing bilateral intrarenal calculi. Cholecystectomy. Dense aortic and iliofemoral artery calcifications. No AAA. No lymphadenopathy. No bowel obstruction, pneumoperitoneum, or pneumatosis. Prior gastric surgery. Nvhkd-cr-mokrreuk hiatal hernia. No ascites or organized fluid collection. No significant mesenteric or paracolic edema. There are multiple distal descending colon and sigmoid diverticula. Large colonic stool burden. Tiny fat containing umbilical hernia. Appendix is not identified with certainty. No significant inflammatory changes are seen in its expected location. Urinary bladder unremarkable. Prostate size appears within normal limits. Streak artifact from a device in the dorsal subcutaneous tissues of the lower right flank with neurostimulator leads extending cephalad into the thoracic spine, tips outside the field of view. L5-S1 discectomy and posterior fusion. IMPRESSION: 1. No obstructive or acute inflammatory changes in the gastrointestinal and genitourinary tracts. 2. Diverticulosis coli. Large colonic stool burden. 3. Prior gastric surgery. [id number]-kfxglmcc hiatal hernia. 4. Nonobstructing bilateral nephrolithiasis. This document has been electronically signed by: Janet Geller DO on 06/14/2024 15:16:55
--- OUTSIDE RECORDS SUMMARY | 2024-06-13 15:01 | XMS_ITS ---
Author Organization [facility] Address [address] [place] [address] Care Team Providers Care Medical Record Transcriber Name Role Phone Álvaro Noble Primary Care Provider Kapil Aponte Jr Unavailable Allergies Allergen (clinical drug ingredient) Drug/Non Drug Allergy documented on EMR Reaction Allergy Type Onset Date Status codeine Codeine Unknown Drug Allergy Active Sulfa Unknown Drug Allergy Active Penicillin Unknown Drug Allergy Active Latex latex (uncoded) Unknown Allergy Acti ve REASON FOR VISIT Patient presents today for acid reflux Medications Medication SIG (Take, Route, Frequency, Duration) Notes Start Date End Date Status FLUoxetine HCl 10 MG 1 capsule Orally On ce a day Active Esomeprazole Magnesium 40 MG TAKE 1 CAPSULE BY MOUTH EVERY DAY FOR 30 DAYS for 90 Active Ezetimibe 10 MG Oral for 90 Ac tive clonazePAM 0.5 MG Oral for 30 Active Allopurinol 100 MG Oral for 90 Active Carvedilol 6.25 MG 1 tablet with food O ral Twice a day Active Vitamin D3 2000 UNIT 1 capsule Orally On ce a day Active Zetia 10 MG 1 tablet Orally Once a day Active QUEtiapine Fumarate 100 MG 100mg in am 100 mg in plm three times a day three times a day Active Testosterone Cypionate 200 MG/ML (Schedule III Drug) INJECT 1 ML INTRAMUSCULARLY EVERY 3 WEEKS Intramuscular for 21 Active Ciprofloxacin 500 MG/5ML (10%) 5 mL Orally every 12 hrs Act ivanna Aspirin Adult Low Dose 81 MG 1 tablet Orally three times a week Active Bariatric Multivitamins/Iron Active Rosuvastatin Calcium 5 MG 1 tablet Orally Once a day Active Hyoscyamine Sulfate ER 0.375 MG TAKE 1 TABLET BY MOUTH EVERY 12 HOURS Orally every 12 hrs for 90 days Not-Hans ing Hyoscyamine Sulfate 0.[address] 1 TABLET UNDER THE TONGUE AND ALLOW TO DISSOLVE NEEDED THREE TIMES A DAY 90 DAYS for 90 Active Ondansetron HCl 4 MG TAKE 1 TABLET BY [facility] EVERY DAY for 30 Not-Taking Social History Tobacco Use: Social History Observation Description Date Details (start date - stop date) Former Smoker NA - NA Tobacco Use/Smoking Question Answer Notes Patient is a former smoker How long has it been since you last smoked? 1-5 years Alcohol Screen Question Answer Notes Did you have a drink containing alcohol in the p ast year? No Points 0 Interpretation Negative Section Notes: no alcohol since 1999 Vital Signs Temperature 98.6 degrees Fahrenheit 04/27/19 25 Blood pressure systolic 001 mm Hg 04/27/19 25 Blood pressure diastolic 01 mm Hg 025 Height 70 in 04/26/2024 Weight 199.4 lbs 04/26/2024 BMI 28.61 kg/m2 04/26/2024 Encounters Encounter Location Date Provider Diagnosis [facility] [address] [place] [address] 04/26/2024 Kapil Morris Jr Generalized abdominal pain R10.84 Assessments Encounter Date Diagnosis (ICD Code) Assessment Notes Treatment Notes Treatment Clinical Notes Section Notes 04/26/2024 Generalized abdominal pain (ICD-10 - R10.84) Abdominal CT scan material was printed We discussed his symptoms today. He will continue twice daily Nexium, laboratory studies will be obtained. CT of the abdomen and pelvis has been ordered. Follow-up will be pending these results. He can use hyoscyamine as directed. Plan Of Treatment Treatment Notes Assessment Notes Generalized abdominal pain Abdominal CT scan material was printed Pending Test Test Name Order Date BUN 04/26/2024 CREATININE 04/26/2024 LIVER PROFILE 04/26/2024 LIPASE 04/26/2024 CBC w/o DIFF 04/26/2024 CT ABD & PELVIS WITH CONTRAST 04/26/2024 Next Appt Details Follow Up: 1 Year, Reason: Provider Name:Kapil engle Jr, 03/01/2025 01:15:00 PM, [address], [address], [place], [address], Progress Notes * SUSANNA RENAE:1955 (68 yo M)Acc No.[id number]:04/26/2024 Progress Notes Patient:KEELY SCHMITT Provider:?Kapil Morris MD :1955???Age:68 Y???Sex:Male Santosh e:04/26/2024 Address:[address] [place] [address], [id number] Pcp:Álvaro Noble Subjective: * Chief Complaints: * ???1. Patient presents today for acid reflux. * HPI: ???New symptom(s):? Mr. Renae is seen today in follow-up. He was last seen in December and underwent colonoscopy in February which showed a tubular adenoma and normal sigmoid biopsies. We reviewed this today. For the last 2 months he has been using Maalox and Tums because of upper abdominal pain after eating. He was diagnosed with a urinary tract infection and placed on ciprofloxacin. He has had some diarrhea but no blood. He continues on esomeprazole 40 mg twice daily. He is also on aspirin 3 days/week. * Medical History:?Coronary ar lacy disease, history of ME 2013, Nephrolithiasis, DOMONIQUE/CPAP, Larson's esophagus, EGD 11/10/22 , 6 cm segment of Larson's, hiatal hernia with paraesophageal component, no dysplasia on biopsies, repeat endoscopy 3-5 years., Squamous cell carcinoma, Anxiety/depression/bipolar, Synovial cyst, Colonoscopy 03/04, tubular adenoma in the cecum, normal sigmoid biopsies, 5 to 7-year follow-up, Hyponatremia, Pneumonia, Back pain, Urinary tract infection. * Surgical History:?tonsillect amalia 1963, appendectomy 1999, cholecystectomy 2000, Multiple spinal surgeries 2017, CABG x4 2013, Gastric sleeve 2059, lithotripsy 2019, hiatal hernia repair 2021. * Hospitalization/Major Diagno stic Procedure:?2 hospital stays for pneumonia aspiration . * Family History:?Father: john sorensen?Mother: alive, diagnosed with Inflammatory bowel disease.? no known hx of colon cancer polyps or liver ds. * Social History:?Tobacco Use:?Tobacco Use/Smoking?Patient is a?former smoker,?How long has it been since you last smoked??1-5 years.?Drugs/Alcohol:?Alcohol Screen?Did you have a drink containing alcohol in the past year??No,?Points?0,?Interpretation?Negative.?Miscellaneous:?Marital status: . Occupation: retired. ???no alcohol since 1999. * Medications:?Taking Ciproflo xacin 500 MG/5ML (10%) Suspension Reconstituted 5 mL Orally every 12 hrs , Taking Aspirin Adult Low Dose 81 MG Tablet Delayed Release 1 tablet Orally three times a week , Taking Bariatric Multivitamins/Iron , Taking Rosuvastatin Calcium 5 MG Tablet 1 tablet Orally Once a day , Taking Vitamin D3 2000 UNIT Capsule 1 capsule Orally Once a day , Taking Zetia 10 MG Tablet 1 tablet Orally Once a day , Taking QUEtiapine Fumarate 100 MG Tablet 100mg in am 100 mg in plm three times a day three times a day , Taking Testosterone Cypionate 200 MG/ML Solution (Schedule III Drug) INJECT 1 ML INTRAMUSCULARLY EVERY 3 WEEKS Intramuscular , Taking Carvedilol 6.25 MG Tablet 1 tablet with food Oral Twice a day , Taking FLUoxetine HCl 10 MG Capsule 1 capsule Orally Once a day , Taking Esomeprazole Magnesium 40 MG Capsule Delayed Release TAKE 1 CAPSULE BY MOUTH EVERY DAY FOR 30 DAYS , Taking Ezetimibe 10 MG Tablet Oral , Taking clonazePAM 0.5 MG Tablet Oral , Taking Allopurinol 100 MG Tablet Oral , Taking Hyoscyamine Sulfate 0.[address] 1 TABLET UNDER THE TONGUE AND ALLOW TO DISSOLVE NEEDED THREE TIMES A DAY 90 DAYS , Not-Taking/PRN Ondansetron HCl 4 MG Tablet TAKE 1 TABLET BY MOUTH EVERY DAY , Not-Taking/PRN Hyoscyamine Sulfate ER 0.375 MG Tablet Extended Release 12 Hour TAKE 1 TABLET BY MOUTH EVERY 12 HOURS Orally every 12 hrs , Medication List reviewed and reconciled with the patient * Allergies:?Penicillin, Sulfa , latex, Codeine. Objective: * Vitals:?Wt:199.4lbs, Ht: 70 in, BMI:28.61Index, BP:001/01mm Hg, Temp:98.6, Wt- k.45. * Examination: ???General Examination: ???On examination today, he appears well. Skin is anicteric. Lungs are clear. Heart shows a regular rate and rhythm. Abdomen is soft without focal masses or tenderness. Extremities are without edema. Assessment: * Assessment: 1.?Generalized abdominal jasiel n - R10.84 (Primary)??? We discussed his symptoms to day. He will continue twice daily Nexium, laboratory studies will be obtained. CT of the abdomen and pelvis has been ordered. Follow- up will be pending these results. He can use hyoscyamine as directed. Plan: * Treatment: * Notes: Abdominal CT scan material was printed?? * Procedure Codes:?3017F COLOR ECTAL CA SCREEN DOC REV, G9903 Pt scrn tbco id as non user, G8785 BP SCR NOT PRFRM REC REASON NOS * Preventive Medicine:? ??Counseling:?Care goal follow-up plan:?Above Normal BMI Follow-up?Dietary management education, guidance, and counseling,?BMI management provided?Yes.? ??Screenings:?Fall Risk Screening?Fall Risk Assessment:?No falls in the past year,?Screening:?No falls in the past year,?Assessment:?Not performed, no reason specified,?Plan of Care:?Not documented, no reason specified.? * Follow Up:?1 Year * * Sign off status: Completed true * Provider:?Kapil Morris MD Date:?0 04/26/2024 Generated for Geovany kidd/Eliseo/eTransmitting on:?06/13/2024 03:00 PM EDT History and Physical Notes * HPI (History of Present Illness) Category Sub-Category Detail Notes Category Not es New symptom(s) Mr. Renae is seen today in follow-up. He was last seen in December and underwent colonoscopy in February which showed a tubular adenoma and normal sigmoid biopsies. We reviewed this today. For the last 2 months he has been using Maalox and Tums because of upper abdominal pain after eating. He was diagnosed with a urinary tract infection and placed on ciprofloxacin. He has had some diarrhea but no blood. He continues on esomeprazole 40 mg twice daily. He is also on aspirin 3 days/week. Examination Category Sub-Category Detail Notes Category Not es General Examination [facility] [place] today, he appears well. Skin is anicteric. Lungs are clear. Heart shows a regular rate and rhythm. Abdomen is soft without focal masses or tenderness. Extremities are without edema.
--- OUTSIDE RECORDS SUMMARY | 2024-06-13 15:02 | XMS_ITS | Patient Health Record ---
Author Organization [facility] Address [address] [place] [address] Care Team Providers Care Metal Engineering Process Worker Name Role Phone Álvaro Noble Primary Care Provider Kapil Aponte Jr Unavailable Allergies Allergen (clinical drug ingredient) Drug/Non Drug Allergy documented on EMR Reaction Allergy Type Onset Date Status codeine Codeine Unknown Drug Allergy Active Sulfa Unknown Drug Allergy Active Penicillin Unknown Drug Allergy Active Latex latex (uncoded) Unknown Allergy Acti ve Results Component Value Reference Range Notes Pathology Reviewed date:03/02/2024 02:43:56 PM Interpretation: Performing Lab:[facility], [address] [place] [phone] Notes/Report: Name: Butch Renae Age/Sex: 68/M : 1955 Unit#: [id number] Attend Dr: Kapil Morris MD Re02/25/24 Status : [facility] Location: [facility] Disch: SPEC : [id number] RECD: 02/25/24 STATUS: CINDY KEENE NUM: [id number] UMAIR: 02/25/241128 SUBM DR: Kapil Morris MD ENTERED: 02/25/24 SP TYPE: Surgical OTHR DR: Álvaro Noble MD ORDERED: HE Stain/6, Gross Micro L4/2 Diagnosis A. Colon, cecal poly p: Tubular adenoma; negative for high-grade dysplasia and carcinoma. B. Colon, sigmoid, b iopsy: Colonic mucosa with no specific change. Clinical History Pre-Op Dx: Change in bowel habits Post-Op Dx: Colon polyp Microscopic Description Microscopic sections reviewed. Material Received A. Polyp cecum B. Sigmoid bx's Gross Description Received in 2 parts. A. Received in forma benito labeled polyp cecum? is a fragment of pink white soft tissue measuring 0.3 cm in greatest dimension which is wrapped in lens paper and entirely submitted for microscopic exam ination, 1 piece in cassette A. B. Received in forma benito labeled ?sigmoid biopsies? are 2 fragments of pink-cedeno soft tissue measuring 0.2 and 0. 3 cm in greatest dimension which are wrapped in lens paper and entirely submitted for micros copic examination, 2 pieces in cassette B. [facility] Copies To: Kapil Morris MD [facility] [address] [place] [address] CONTINUED ON NEXT PAGE Name: ChunmanpreetButch Edvin Age/Sex: 68/M : 1955 Unit#: [id number] Attend Dr: Kapil Morris MD Re02/25/24 [place] [facility] [place]: [facility] Disch: SPEC : [id number] RECD: 02/25/24 STATUS: CINDY KEENE NUM: [id number] UMAIR: 02/25/[address]: Kapil Morris MD ENTERED: 02/25/24 SP TYPE: Surgical OTHR DR: Álvaro Noble MD ORDERED: YESICA Stain/6, Simone Jc L4/2 Copies To: (Continued) Álvaro Noble MD [address] [place] [id number] Signed (si gnature on file) Carleen Hogue 02/28/24 1034 END OF REPORT Reason For Referral No Information Medications Medication SIG (Take, Route, Frequency, Duration) Notes Start Date End Date Status Zetia 10 MG 1 tablet Orally Once a day Active Carvedilol 6.25 MG 1 tablet with food O ral Twice a day Active FLUoxetine HCl 10 MG 1 capsule Orally On ce a day Active Esomeprazole Magnesium 40 MG TAKE 1 CAPSULE BY MOUTH EVERY DAY FOR 30 DAYS for 90 Active Ciprofloxacin 500 MG/5ML (10%) 5 mL Orally every 12 hrs Act ivanna Ezetimibe 10 MG Oral for 90 Ac tive Aspirin Adult Low Dose 81 MG 1 tablet Orally three times a week Active clonazePAM 0.5 MG Oral for 30 Active Bariatric Multivitamins/Iron Active Allopurinol 100 MG Oral for 90 Active Rosuvastatin Calcium 5 MG 1 tablet Orally Once a day Active Hyoscyamine Sulfate 0.[address] 1 TABLET UNDER THE TONGUE AND ALLOW TO DISSOLVE NEEDED THREE TIMES A DAY 90 DAYS for 90 Active Vitamin D3 2000 UNIT 1 capsule Orally On ce a day Active Ondansetron HCl 4 MG TAKE 1 TABLET BY MO UT EVERY DAY for 30 Not-Taking Hyoscyamine Sulfate ER 0.375 MG TAKE 1 TABLET BY MOUTH EVERY 12 HOURS Orally every 12 hrs for 90 days Not-Hans ing QUEtiapine Fumarate 100 MG 100mg in am 100 mg in plm three times a day three times a day Active Testosterone Cypionate 200 MG/ML (Schedule III Drug) INJECT 1 ML INTRAMUSCULARLY EVERY 3 WEEKS Intramuscular for 21 Active Immunizations Vaccine Route Administration Date Status Comme nts Influenza Unknown 11/09/2018 Administered Influenza Unknown 10/10/2019 Administered Influenza Unknown 11/27/2020 Administered Influenza Unknown 03/11/2021 Administered Influenza Unknown 12/14/2023 Administered Social History Tobacco Use: Social History Observation [...] Negative Section Notes: no alcohol since 1999 no alcohol since 1999 no alcohol since 1999 no alcohol since 1999 no alcohol since 1999 no alcohol since 1999 no alcohol since 1999 no alcohol since 1999 no alcohol since 1999 no alcohol since 1999 Problems Problem Type SNOMED Code ICD Code Onset Dates Problem Status W/U Status Risk Notes Problem 236012182 Colon cancer screening (Z12.11) Active confirmed Problem 17166854 Epigastric pain (R10.13) Active confirmed Problem 983316586 Larson's esophagus without dysplasia (K22.70) Active confirmed Problem 117034638 Barretts esophagus without dysplasia (K22.70) Active confirmed Problem 206748603 Long-term use of aspirin therapy (Z79.82) Active confirmed Problem 656775156 Abnormal barium swallow (R93.3) Active confirmed Problem 37975591 Change in bowel movement (R19.8) Active confirmed Problem 862935889 Spasm of bowel (K58.9) Active confirmed Vital Signs Temperature 98.6 degrees Fahrenheit 04/26/2024 Blood pressure diastolic 01 mm Hg 04/26/2024 Height 70 in 04/26/2024 Blood pressure systolic 001 mm Hg 04/26/2024 Weight 199.4 lbs 04/26/2024 BMI 28.61 kg/m2 04/26/2024 Encounters Encounter Location Date Provider Diagnosis [facility] [address] [place] [id number] 02/25/2024 Kapil Morris Jr Change in stool R19.5 and Colon polyp K63.5 [facility] [address] [place] [phone] 12/27/2023 Kapil Morris Jr Change in bowel movement R19.8 ; Spasm of bowel K58.9 and Larson's esophagus without dysplasia K22.70 [facility] [address] [place] [address] 04/26/2024 Kapil Morris Jr Generalized abdominal pain R10.84 [facility] [address] [place] [address] 03/02/2024 Kapil Morris Jr [facility] [address] [place] [phone] 04/25/2024 Kapil Morris Jr [facility] [address] [place] [phone] 05/04/2024 Kapil Morris Jr Assessments Encounter Date Diagnosis (ICD Code) Assessment Notes Treatment Notes Treatment Clinical Notes Section Notes 02/25/2024 Colon polyp (ICD-10 - K63.5) 02/25/2024 Change in stool (ICD-10 - R19.5) 12/27/2023 Change in bowel movement (ICD-10 - R19.8) Colonoscopy material was printed He is doing well regarding reflux and Larson's esophagus. We discussed diet, lifestyle modifications, and weight management. We recommended he continue Nexium. Because of his change in bowel movements we have recommended he undergo colonoscopy. We discussed risks and benefits of the procedure today. He understands these and agrees to proceed. He will continue taking hyoscyamine for his cramping. He is advised to stop aspirin one week before the procedure. 12/27/2023 Spasm of bowel (ICD-10 - K58.9) He is doing well regarding reflux and Larson's esophagus. We discussed diet, lifestyle modifications, and weight management. We recommended he continue Nexium. Because of his change in bowel movements we have recommended he undergo colonoscopy. We discussed risks and benefits of the procedure today. He understands these and agrees to proceed. He will continue taking hyoscyamine for his cramping. He is advised to stop aspirin one week before the procedure. 04/26/2024 Generalized abdominal pain (ICD-10 - R10.84) Abdominal CT scan material was printed We discussed his symptoms today. He will continue twice daily Nexium, laboratory studies will be obtained. CT of the abdomen and pelvis has been ordered. Follow-up will be pending these results. He can use hyoscyamine as directed. 12/27/2023 Larson's esophagus without dysplasia (ICD-10 - K22.70) He is doing well regarding reflux and Larson's esophagus. We discussed diet, lifestyle modifications, and weight management. We recommended he continue Nexium. Because of his change in bowel movements we have recommended he undergo colonoscopy. We discussed risks and benefits of the procedure today. He understands these and agrees to proceed. He will continue taking hyoscyamine for his cramping. He is advised to stop aspirin one week before the procedure. Plan Of Treatment Pending Test Test Name Order Date BUN 04/26/2024 CREATININE 04/26/2024 LIVER PROFILE 04/26/2024 LIPASE 04/26/2024 CBC w/o DIFF 04/26/2024 CT ABD & PELVIS WITH CONTRAST 04/26/2024 Future Test Test Name Order Date UPPER GI ENDOSCOPY 11/11/2017 COLONOSCOPY 11/11/2017 UPPER GI ENDOSCOPY 11/02/2019 UPPER GI ENDOSCOPY 09/28/2022 COLONOSCOPY 12/27/2023 Next Appt Details Provider Name:Kapil Almaguer Salvador engle Jr, 03/01/2025 01:15:00 PM, [address], [address], [place], [address], Insurance Providers Payer Name Payer Address Payer Phone Subscriber Number Group Number Insured Name Patient Relationship to Insured Coverage Start Date Coverage End Date [facility] [address] [place] [address] [phone] [id number] BUTCH RENAE Self - patient is the insured Medical (General) History Medical History History ICD Code Coronary artery disease, history of NE 2 014 Nephrolithiasis DOMONIQUE/CPAP Larson's esophagus, EGD 11/10/22 , 6 cm segment of Larson's, hiatal hernia with paraesophageal component, no dysplasia on biopsies, repeat endoscopy 3-5 years. Squamous cell carcinoma Anxiety/depression/bipolar Synovial cyst colonoscopy 03/04, tubular ad enoma in the cecum, normal sigmoid biopsies, 5 to 7-year follow-up Hyponatremia Pneumonia Back pain urinary tract infection Surgical History Surgery Date(Month/Year) hiatal hernia repair 2021 lithotripsy 2019 Gastric sleeve 2059 CABG x4 2014 Multiple spinal surgeries 2018 cholecystectomy 2000 appendectomy 1999 tonsillectomy 1964 Hospitalization History Reason Date(Month/Year) 2 hospital stays for pneumonia aspiratio n
--- OUTSIDE RECORDS SUMMARY | 2024-06-13 15:02 | XMS_ITS ---
Author Organization [facility] Address [address] [place] [address] Care Team Providers Care Portable Track Crew Chief Name Role Phone Álvaro Noble Primary Care Provider Kapil Aponte Jr REASON FOR VISIT not feeling well Encounters Encounter Location Date Provider Diagnosis [facility] [address] [place] [address] 04/25/2024 Kapil Morris Jr Plan Of Treatment Next Appt Details Provider Name:Kapil engle Jr, 03/01/2025 01:15:00 PM, [address], [address], [place], [address], Progress Notes * KEELY SAMUELDOB:1955 (68 yo M)Acc No.[id number]:04/25/2024 Patient:?KEELY SAMUEL :1955???Age:68 Y???Sex:Male Address:[address] [place] [address], [address] * true * Date:? Generated for Printi marti/Eliseo/eTransmitting on:?06/13/2024 03:02 PM EDT
--- OUTSIDE RECORDS SUMMARY | 2024-06-13 15:03 | XMS_ITS ---
Author Organization [facility] Address [address] [place] [address] Care Team Providers Care Websphere Administrator Name Role Phone Álvaro Noble Primary Care Provider Kapil Aponte Jr REASON FOR VISIT Labs 05/04 Encounters Encounter Location Date Provider Diagnosis [facility] [address] [place] [address] 05/04/2024 Kapil Morris Jr Plan Of Treatment Next Appt Details Provider Name:Kapil engle Jr, 03/01/2025 01:15:00 PM, [address], [address], [place], [address], Progress Notes * KEELY SAMUELDOB:1955 (68 yo M)Acc No.[id number]:05/04/2024 Patient:?KEELY SAMUEL :1955???Age:68 Y???Sex:Male Address:[address] [place] [address], [address] * true * Date:? Generated for Printi marti/Eliseo/eTransmitting on:?06/13/2024 03:02 PM EDT
--- OUTSIDE RECORDS SUMMARY | 2024-06-13 15:03 | XMS_ITS | Clinical Summary ---
Author Organization [facility] Address [address] [address] Care Team Providers Care Global Cmo Name Role Phone Unavailable Primary Care Provider Unavailabl e Social History Tobacco Use Types Packs/Day Years Used Date Smoking Tobacco: Never Assessed Sex and Gender Information Value Date Recorded Sex Assigned at Not on file Legal Sex Male 5:24 PM EST Gender Identity Not on file Sexual Orientation Not on file Plan of Treatment Health Maintenance Due Date Last Done Comments Pneumococcal Vaccine: 50+ Ye ars (1 of 2 - PCV) 11/23/1974 Colorectal Cancer Screening: Annual FOBT 11/23/2004 Colorectal Cancer Screening: Colonoscopy 11/23/2004 Colorectal Cancer Screening: Sigmoidoscopy 11/23/2004 Diabetes: Hemoglobin A1C 02/22/2022 Diabetes: Ophthalmology Exam 02/22/2022 Diabetes: Pedal Pulse Checked 02/22/2022 Diabetes: Sensory Foot Exam 02/22/2022 Diabetes: Visual Foot Exam 02/22/2022 Influenza Vaccine (Season Ended) 2024 Hepatitis B Vaccine Aged Out No longe r eligible based on patient's age to complete this topic Insurance [facility]
[2024-06-13] MEDS: iohexoL 350 MG/ML 75 ML INFUS..BTL 85 ML IV (16:46)
[2024-06-13] MEDS: Barium Sulfate Oral (Vanilla) 450 ML ORAL.SUSP 900 ML PO (16:48)
[2024-06-14 06:01] LABS: Creatinine POC 0.9 mg/dL (0.5-1.4); GFR POC > 60
== END 2024-06-13 13:43 | disposition home or self-care (01) ==
LOC: HO.CT 13:42
PROVIDERS: PCP Family Medicine; Visit Provider Internal Medicine Gastroenterology
DX: R10.84 Generalized abdominal pain (principal)
CPT/HCPCS: 74177; 82565; Q9967

== ENCOUNTER → 2024-06-13 13:44 | Outpatient (BNV) | payer OTHER, SELFPAY | PROVIDERS: PCP Family Medicine; Visit Provider Radiology Diagnostic Radiology | DX: K57.30 Diverticulosis of large intestine without perforation or abscess without bleeding (principal); N20.0 Calculus of kidney; K44.9 Diaphragmatic hernia without obstruction or gangrene | CPT/HCPCS: 74177 ==

== ENCOUNTER 2024-07-19 11:12 | Outpatient (REF) | payer OTHER, SELFPAY ==
--- NOTE | ~2024-07-19 | US_ITS ---
CLINICAL HISTORY: N20.0 - Calculus of kidney US Renal Comparison: CT/HI/SR - CT ABDOMEN PELVIS W IV CON - 06/13/24 16:11 EDT Findings: Right kidney normal size and echotexture, 10.1 cm length. Several nonobstructing nephroliths. The largest measuring 0.4 x 0.2 x 0.3 cm at the midpole. Left kidney normal size and echotexture, 11.4 cm length. Several nonobstructing nephroliths. The largest measuring 0.7 x 0.8 x 0.5 cm at the lower pole. No collecting system dilatation of either kidney. Normal color Doppler. IMPRESSION: Bilateral nonobstructive nephrolithiasis. This document has been electronically signed by: Tomas Crowe DO on 07/19/2024 13:06:14
--- OUTSIDE RECORDS SUMMARY | 2024-07-19 12:50 | XMS_ITS ---
Author Organization [facility] Address [address] [place] [address] Care Team Providers Care Input Output Clerk Name Role Phone Álvaro Noble Primary Care Provider Kapil Aponte Jr REASON FOR VISIT CT scan 06/15 Encounters Encounter Location Date Provider Diagnosis [facility] [address] [place] [address] 06/15/2024 Kapil Morris Jr Plan Of Treatment Next Appt Details Provider Name:Kapil engle Jr, 03/01/2025 01:15:00 PM, [address] [facility], [address], [place], [address], Progress Notes * KEELY SAMUELDOB:1955 (68 yo M)Acc No.[id number]:06/15/2024 Patient:?JIMMIE KEELY :1955???Age:68 Y???Sex:Male Address:[address] [place] [address], [id number] * true * Date:? Generated for Printi marti/Eliseo/eTransmitting on:?07/19/2024 12:50 PM EDT
== END 2024-07-19 11:13 | disposition home or self-care (01) ==
LOC: HO.US 11:12
PROVIDERS: PCP Family Medicine; Visit Provider Urology
DX: N20.0 Calculus of kidney (principal)
CPT/HCPCS: 76775

== ENCOUNTER → 2024-07-19 11:14 | Outpatient (BNV) | payer OTHER, SELFPAY | PROVIDERS: PCP Family Medicine; Visit Provider Radiology Diagnostic Radiology | DX: N20.1 Calculus of ureter (principal) | CPT/HCPCS: 76775 ==

== ENCOUNTER 2024-08-02 11:38 | Outpatient (AMB) | payer OTHER, SELFPAY ==
--- OUTSIDE RECORDS SUMMARY | 2024-02-25 07:20 | XMS_ITS ---
Author Organization [facility] Address [address] [place] [address] Care Team Providers Care Babbitt Spinner Name Role Phone Álvaro Noble Primary Care Provider Kapil Aponte Jr Unavailable REASON FOR VISIT change in bowels Encounters Encounter Location Date Provider Diagnosis [facility] [place] [address] [place] [phone] 02/25/2024 Kapil Morris Jr Change in stool R19.5 and Colon polyp K63.5 Assessments Encounter Date Diagnosis (ICD Code) Assessment Notes Treatment Notes Treatment Clinical Notes Section Notes 02/25/2024 Change in stool (ICD-10 - R19.5) 02/25/2024 Colon polyp (ICD-10 - K63.5) Plan Of Treatment Next Appt Details Provider Name:Kapil engle Jr, 03/01/2025 01:15:00 PM, [address] [facility], [address], [place], [address], Progress Notes * ARNAVVIELKA KEELYDOB:1955 (68 yo M)Acc No.[id number]:02/25/2024 COLON WITH MAC Patient: KEELY CALDERON Provider: Yamil Morris MD :1955 A ge:68 Y S ex:Male Date:02/25/2024 Address:[address] [place], [place] [phone] Pcp:Álvaro Noble Subjective: * Chief Complaints: * [...] MD Date: 0 02/25/2024 Generated for Geovany kidd/Eliseo/Niallsmitting on: 0 08/02/2024 01:52 PM EDT
--- NOTE | 2024-08-02 11:43 | A.OFFVIS_ITS ---
Intake Visit Reasons: 6m/US/labs Intake Note: Patient is present for 6M follow up PSA/ US images : 07/19/24 PSA : not done pvr: 36 ML'S Urology Medication:TESTOSTERONE,VITAMIN B6, Antibiotic Allergy:CLINDAMYCIN,PENICILLIN,SULFA Blood Thinner:ASPIRIN Health Services Information Specialist Required: No Allergies clindamycin Allergy (Intermediate, Verified 08/02/24 11:44) Gastrointestinal Upset latex (LATEX) Allergy (Intermediate, Verified 08/02/24 11:44) RASH Penicillins (PENICILLINS) Allergy (Intermediate, Verified 08/02/24 11:44) RASH/HIVES Sulfa (Sulfonamide Antibiotics) (SULFA(SULFONAMIDE ANTIBIOTICS)) Allergy (Intermediate, Verified 08/02/24 11:44) HIVES, hospitalized, edema codeine (CODEINE) Adverse Reaction (Intermediate, Verified 08/02/24 11:44) NAUSEA HPI Comments Details: Butch is a pleasant male. He is a patient of Dr Soto. 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 on fluid restriction Nephrolithiasis follow-up - on allopurinol and vitamin B6 Lesion in left lower pole Reviewed CT scan Recommend ureteroscopy with laser lithotripsy Hypogonadism Testosterone replacement ongoing Labs 05/29 T 569, PSA 2.6, 11/28 T1500 4.3, 07/30 T 390 2.2, 06/30 860, 11/01 T 1200 PSA 5.6 Did have elevation August 2020 with UTI - PSA 27 Injection Day - Lab Day Wed Current therapy testosterone injections administers injection every 2 weeks Nephrolithiasis Longstanding Multiple prior procedures Imaging - 07/31 right 7 mm stones, left 3 mm stone - 01/30 renal ultrasound bilateral 3 mm stones - 08/01 renal ultrasound bilateral stones 6 mm right, left 3 mm - 08/02 renal ultrasound bilateral stones 5-6 mm 24 hour urine - 06/30 adequate volume 1.6 L, low citrate Intervention - 10/31 right ESWL Lower urinary tract Prior laser prostate procedure 2018 Did have bladder neck contracture Off Flomax Cystoscopy 06/28 open with TURP defect PFSH Medical History Elevated cholesterol Skin cancer H/O supraventricular tachycardia Back pain Hyponatremia Synovial cyst Bipolar disorder Larson esophagus GERD (gastroesophageal reflux disease) Other obstructive and reflux uropathy Benign prostatic hyperplasia with lower urinary tract symptoms Hypogonadism in male Former smoker Anxiety Depression Kidney stones Hiatal hernia Sleep apnea Myocardial infarct CAD (coronary artery disease) Surgical History S/P insertion of spinal cord stimulator Hx of tonsillectomy History of esophagogastroduodenoscopy (EGD) H/O colonoscopy H/O hernia repair H/O gastric bypass History of coronary artery bypass surgery History of lithotripsy History of spinal fusion History of cholecystectomy History of appendectomy Social History Are you a primary respiratory care program director to a significant other at home: No Do you presently have visiting nurse or other home services: No Alcohol intake: former Patient Tobacco Use Status: Former Tobacco user Review of Systems Const Denies chills and Denies fever(s) Card Reports no additional complaints and Denies syncope Resp Denies cough GI Denies abdominal pain and Denies heartburn Reports as per HPI and Denies change in libido Neuro Denies syncope Psych Denies change in libido Endo Denies change in libido Physical Exam Const General: cooperative, healthy appearing, comfortable and no acute distress Orientation/consciousness: patient oriented x3 HEENT Face and sinus: Yes normal facial exam Mouth: moist mucous membranes Neck Neck: Yes normal visual inspection, Yes full ROM and Yes trachea midline Chest Chest palpation & inspection: normal inspection of the chest Resp Effort & Inspection: normal respiratory effort, able to speak in complete sentences and no respiratory distress GI Inspection: Yes normal to inspection Back/Spine/Pelvis Cervical Spine: normal cervical lordosis Thoracic/Lumbar Spine: thoracic and lumbar spine normal to inspection Skin General skin exam: no rashes or lesions noted Neuro General: patient oriented x3, gait normal, tone normal and moves all extremities Extrem General: Yes normal to inspection and Yes capillary refill normal Office Procedures Post Void Residual Post Residual Void Post Void Residual (PVR): 36 [id number]-[id number] Void Residual by ultrasound Results AMB Urinalysis, Automated UA Leukoctes 0 Janette/uL Last Edit by Philly Olson MA on 08/02/24 13:48 UA Nitrite Negative Last Edit by Philly Olson MA on 08/02/24 13:48 UA Urobilinogen 3.5 mg/dL Last Edit by Philly Olson, MA on 08/02/24 13:48 UA Protein 0 mg/dL Last Edit by Philly Olson, MA on 08/02/24 13:48 UA pH 6.0 Last Edit by Philly Olson, MA on 08/02/24 13:48 UA Blood 0 Can/uL Last Edit by Philly Olson, MA on 08/02/24 13:48 UA Specific [place] 1.010 Last Edit by Philly Olson, MA on 08/02/24 13:48 UA Ketone Negative Last Edit by Philly Olson, MA on 08/02/24 13:48 UA Bilirubin 0 mg/dL Last Edit by Philly Olson, MA on 08/02/24 13:48 UA Glucose 0 mg/dL Last Edit by Philly Olson, MA on 08/02/24 13:48 Results Reviewed Results Reviewed: Laboratory Last Values Urine pH (Auto) 6.0 08/02/24 12:24 Specific [place] (Auto) 1.010 08/02/24 12:24 Urine Protein (Auto) 0 mg/dL 08/02/24 12:24 Glucose (UA)(Auto) 0 mg/dL 08/02/24 12:24 Urine Ketones (Auto) Negative 08/02/24 12:24 Urine Blood (Auto) 0 Can/uL 08/02/24 12:24 Urine Nitrite (Auto) Negative 08/02/24 12:24 Urine Bilirubin (Auto) 0 mg/dL 08/02/24 12:24 Urine Urobilinogen (Auto) 3.5 mg/dL 08/02/24 12:24 Leukocyte Esterase (Auto) 0 Janette/uL 08/02/24 12:24 Assessment & Plan Assessment & Plan (1) Benign prostatic hyperplasia with lower urinary tract symptoms: Code(s): N40.1 - Benign prostatic hyperplasia with lower urinary tract symptoms Category: Medical (2) Hypogonadism in male: Code(s): E29.1 - Testicular hypofunction Category: Medical (3) Kidney stones: Code(s): N20.0 - Calculus of kidney Category: Medical Plan Ureteroscopy We discussed the nature of the decision and reasonable alternatives for performing ureteroscopy. Options such as medical therapy were discussed. Interventions include chemical dissolution, ESWL, ureteroscopy with laser lithotripsy and stent placement, PCNL. The relative uncertainties and benefits related to each alternate procedure were adequately discussed. General surgical risks including, but not limited to - pain, bleeding, infection, myocardial infarction, pulmonary embolus, deep vein thrombosis and cerebrovascular accident which may result in further ho spitalization were discussed. Full disclosure of the procedure as well as all major risks, benefits and complications were discussed including but not limited to damage to the urethra, bladder and kidney infection, damage to the ureter, stent migration or malposition, scarring to the renal pelvis, remnant stone fragments, subsequent stone passage with need for secondary procedures. The overall secondary procedure rate is approximately 10-15%. The overall clearance rate is approximately 90-95%. Success of the procedure in the short-term does not necessarily guarantee that long-term success will be maintained. Suitable follow up will need to be maintained. The patient showed understanding of discussion and wishes to proceed with - cystoscopy, retrograde, ureteroscopy, possible lithotripsy/stone basketing and stent on the left side Orders: Orders AMB Post Void Residual by ultrasound Today N40.1 - Benign prostatic hyperplasia with lower urinary tract symptoms AMB Urinalysis Automated Today Z13.9 - Encounter for screening, unspecified Patient Instructions: This note is constructed using voice recognition software. While every effort has been made to ensure accuracy bill collector errors may have been included. Imaging studies, laboratory and physical exam results were discussed and reviewed in detail. No major barriers to patient understanding were identified. An opportunity to ask questions regarding the treatment plan was provided. All questions were answered. The patient expressed understanding and agreement with the above treatment plan. The patient is aware they should contact our office by phone for worsening of their current condition or the appearance of new urologic symptoms. Compliance is encouraged with any medications and followup testing that is ordered. It is a privilege to participate in the urologic care of your patient. If you have any questions or concerns regarding treatment for the above conditions, or other urologic issues, please do not hesitate to contact me. The office telephone contact is [phone]. Sincerely, Dr Joe Contreras MD, [facility] - Urology Compassionate Specialist Care for the Genitourinary System Coding Level of Care Code Est Pt Level 4 (43920) Diagnoses Benign prostatic hyperplasia with lower urinary tract symptoms N40.1 Hypogonadism in male E29.1 Kidney stones N20.0 CPT Codes Post Residual Void - PVR CPT Code: 44331-Hpll Void Residual by ultrasound ([id number])
== END 2024-08-02 12:22 | disposition home or self-care (01) ==
LOC: HO.HUSH 11:38
PROVIDERS: PCP Family Medicine; Visit Provider Urology
DX: N40.1 Benign prostatic hyperplasia with lower urinary tract symptoms (principal); E29.1 Testicular hypofunction; N20.0 Calculus of kidney; Z13.9 Encounter for screening, unspecified
CPT/HCPCS: 99214

== ENCOUNTER → 2024-08-02 11:38 | Outpatient (BNVA) | payer OTHER, SELFPAY | PROVIDERS: PCP Family Medicine; Visit Provider Urology | DX: N40.1 Benign prostatic hyperplasia with lower urinary tract symptoms (principal) | CPT/HCPCS: 51798; 81003 ==

== ENCOUNTER 2024-10-02 09:40 | Day surgery (SDC) | payer OTHER, SELFPAY ==
[2024-09-28 13:58] VITALS: BMI 29.3
--- NOTE | 2024-09-29 11:09 | HO.ANESPROP2 ---
Documented by User: Maria D Paz NP 09/29/24 11:17 HPI - Anesthesia Eval Consult details Narrative: 68 yr old male for Cystoscopy, Ureteroroscopy, Retro, Laser,with stent placement,with disposable scope, left CAD s/p CABG 2013. Follows [facility]. Stable at yearly routine visit 02/2023. Routine stress echo rev'd as nml by administration specialist [facility] Active Problems Active Problems: All Active Problems Screening PSA (prostate specific antigen) (Acute) Kidney stones (Acute) Hypogonadism in male (Acute) Benign prostatic hyperplasia with lower urinary tract symptoms (Acute) Past Medical History Medical History Elevated cholesterol Skin cancer H/O supraventricular tachycardia Back pain Hyponatremia Synovial cyst Bipolar disorder Larson esophagus GERD (gastroesophageal reflux disease) Other obstructive and reflux uropathy Benign prostatic hyperplasia with lower urinary tract symptoms Hypogonadism in male Former smoker Anxiety Depression Kidney stones Hiatal hernia Sleep apnea Myocardial infarct CAD (coronary artery disease) Family History Family history of problems with anesthesia: No Surgical History Surgical History (Updated 09/28/24 @ 14:00 by Nayana Collins RN) S/P insertion of spinal cord stimulator Hx of tonsillectomy History of esophagogastroduodenoscopy (EGD) H/O colonoscopy H/O hernia repair H/O gastric bypass History of coronary artery bypass surgery History of lithotripsy History of spinal fusion History of cholecystectomy History of appendectomy History of Problems with Anesthesia: No (PONV with GA) Social History Social History Are you a primary live in caregiver to a significant other at home: No Do you presently have visiting nurse or other home services: No Alcohol intake: former Patient Tobacco Use Status: Former Tobacco user Use of substances other than those prescribed or required for medical reasons: No Advance Directives: No Advance Directives Information Provided: Yes Meds Allergies Allergy/AdvReac Type Severity Reaction Status Date / Time clindamycin Allergy Intermediate Gastrointestinal Verified 08/02/24 11:44 Upset latex (LATEX) Allergy Intermediate RASH Verified 08/02/24 11:44 Penicillins (PENICILLINS) Allergy Intermediate RASH/HIVES Verified 08/02/24 11:44 Sulfa (Sulfonamide Allergy Intermediate HIVES, Verified 08/02/24 11:44 Antibiotics) hospitalized, (SULFA(SULFONAMIDE edema ANTIBIOTICS)) codeine (CODEINE) AdvReac Intermediate NAUSEA Verified 08/02/24 11:44 Home Medications ?Medication ?Instructions ?Recorded ?Confirmed ?Last Taken ?Type aspirin 81 mg tablet 81 mg PO Q OTHER DAY 11/16/19 09/28/24 12/09/22 History clonazepam 1 mg tablet 1 tab PO BEDTIME PRN Sleep 11/16/19 09/28/24 Unknown History ezetimibe 10 mg tablet (Zetia) 10 mg PO DAILY 11/16/19 09/28/24 Unknown History rosuvastatin 5 mg tablet 5 mg PO 3XW 11/16/19 10/02/24 10/01/24 08:00 History carvedilol 6.25 mg tablet 1 tab PO BID 11/17/19 10/02/24 10/02/24 08:00 History tramadol 50 mg tablet 50 mg PO TID PRN Pain 08/07/21 01/29/23 Unknown History esomeprazole magnesium 40 mg 40 mg PO DAILY 11/09/22 09/28/24 Unknown History capsule,delayed release omeprazole 40 mg capsule,delayed 40 mg PO BID 12/01/22 09/28/24 Unknown History release Exam Height,Weight and Vital Signs: Height 5 ft 9.69 in Weight 91.9 kg Narrative Narrative: Stress ECHO 04/2023 stress echo reviewed.? 7 METS, avg functional capacity, no CP, no ST changes.? echo images show resting anterior/anteroseptal wma; fixed at stress.? no LV augmentation, but images were obtained w/ slow HRs.? will call this neg for ischemia.? EKG 09/2023 (during [facility] admit for sepsis pna) ST @ 149 Previously NSR 2022 Assessment and Plan Final Anesthetic Review Family History of Problems with Anesthesia: No History of Problems with Anesthesia: No (PONV with GA) Documented by User: Augustin Doss MD 10/02/24 11:24 [facility] Past Medical History Medical History Elevated cholesterol Skin cancer H/O supraventricular tachycardia Back pain Hyponatremia Synovial cyst Bipolar disorder Larson esophagus GERD (gastroesophageal reflux disease) Other obstructive and reflux uropathy Benign prostatic hyperplasia with lower urinary tract symptoms Hypogonadism in male Former smoker Anxiety Depression Kidney stones Hiatal hernia Sleep apnea Myocardial infarct CAD (coronary artery disease) Surgical History Surgical History (Updated 09/28/24 @ 14:00 by Nayana Collins RN) S/P insertion of spinal cord stimulator Hx of tonsillectomy History of esophagogastroduodenoscopy (EGD) H/O colonoscopy H/O hernia repair H/O gastric bypass History of coronary artery bypass surgery History of lithotripsy History of spinal fusion History of cholecystectomy History of appendectomy Social History Social History Are you a primary live in caregiver to a significant other at home: No Do you presently have visiting nurse or other home services: No Alcohol intake: former Patient Tobacco Use Status: Former Tobacco user Use of substances other than those prescribed or required for medical reasons: No Advance Directives: No Advance Directives Information Provided: Yes Meds Allergies Allergy/AdvReac Type Severity Reaction Status Date / Time clindamycin Allergy Intermediate Gastrointestinal Verified 08/02/24 11:44 Upset latex (LATEX) Allergy Intermediate RASH Verified 08/02/24 11:44 Penicillins (PENICILLINS) Allergy Intermediate RASH/HIVES Verified 08/02/24 11:44 Sulfa (Sulfonamide Allergy Intermediate HIVES, Verified 08/02/24 11:44 Antibiotics) hospitalized, (SULFA(SULFONAMIDE edema ANTIBIOTICS)) codeine (CODEINE) AdvReac Intermediate NAUSEA Verified 08/02/24 11:44 Home Medications ?Medication ?Instructions ?Recorded ?Confirmed ?Last Taken ?Type aspirin 81 mg tablet 81 mg PO Q OTHER DAY 11/16/19 09/28/24 12/09/22 History clonazepam 1 mg tablet 1 tab PO BEDTIME PRN Sleep 11/16/19 09/28/24 Unknown History ezetimibe 10 mg tablet (Zetia) 10 mg PO DAILY 11/16/19 09/28/24 Unknown History rosuvastatin 5 mg tablet 5 mg PO 3XW 11/16/19 10/02/24 10/01/24 08:00 History carvedilol 6.25 mg tablet 1 tab PO BID 11/17/19 10/02/24 10/02/24 08:00 History tramadol 50 mg tablet 50 mg PO TID PRN Pain 08/07/21 01/29/23 Unknown History esomeprazole magnesium 40 mg 40 mg PO DAILY 11/09/22 09/28/24 Unknown History capsule,delayed release omeprazole 40 mg capsule,delayed 40 mg PO BID 12/01/22 09/28/24 Unknown History release Exam Airway Mallampati Class: II TM Dist: <=3cm Loose/Missing/Broken Teeth: No Heart: ok. see above. Lungs: ok Assessment and Plan Assessment Anesthesia Assessment: Anesthesia Plan Discussed and Chart Reviewed Final Anesthetic Review NPO: Yes ASA Class: III Final Preanesthetic Review: No Changes in Pt Med Stat, Meds/Allgs Chart Reviewed, Consent Obtained/Reviewed and Anes Risks/Benef Reviewed Patient Risk: Intermediate Procedure Risk: Low Anesthetic Plan Anesthetic Plan: GA and Agree w/ Assess. and Plan Disposition: Standard PACU
[2024-10-02] VITALS (8 sets, daily range): BP systolic 115–133; BP diastolic 40–83; PULSE 73–96; RESP 16–18; TEMP 36.6–37.4; O2SAT 93–97
--- NOTE | ~2024-10-02 | FL_ITS ---
EXAMINATION: FL GUIDANCE ONLY HISTORY: STONE LEFT COMPARISON: Relation is made with a CT of the abdomen and pelvis with contrast dated 06/13/2024. TECHNIQUE: Fluoroscopy time: 12.9 seconds. Cumulative Dose: 1.2645 mGy. DAP: 0.5501 mGym2 Images: 3. FINDINGS: Fluoroscopic spot films of the left abdomen demonstrate opacification of the left intrarenal collecting system which is unremarkable in appearance. There is placement of a left nephroureteral stent. FL/FL guidance in OR IMPRESSION: Fluoroscopy during procedure. Please see procedure report for additional information. Electronically signed by: Cristiano Zafar MD 10/02/2024 01:07 PM EDT
[2024-10-02] MEDS: Lactated Ringers 1,000 ML 100 ML IVCONT (10:38)
--- NOTE | 2024-10-02 11:33 | MHC.SHP ---
Pre-Procedural Eval Section A - 24 Hr Update-Section A only Date of Service: 10/02/24 The patient is an INPATIENT: No Changes since office visit: No Cold of Flu in the past 2 weeks, No New Medical Problems, No Changes in Medication and No Patient answered all questions The patient has been examined within 24 hours of the surgical procedure. The History & Physical has been completed within 30 days and I have reviewed it.: Yes Section B - Complete if H&P > 30 days Chief Complaint: Calculus of kidney Details of Present Illness: left renal stones Relevant Family History (Specify if Yes): No Relevant Social History: None Present Medications: see Short Stay Collaborative assessment Medical History: No relevant PMH History of Previous Operations: Relevant previous surgery/procedure and date(s) Allergies: Allergies Allergy/AdvReac Type Severity Reaction Status Date / Time clindamycin Allergy Intermediate Gastrointestinal Verified 08/02/24 11:44 Upset latex (LATEX) Allergy Intermediate RASH Verified 08/02/24 11:44 Penicillins (PENICILLINS) Allergy Intermediate RASH/HIVES Verified 08/02/24 11:44 Sulfa (Sulfonamide Allergy Intermediate HIVES, Verified 08/02/24 11:44 Antibiotics) hospitalized, (SULFA(SULFONAMIDE edema ANTIBIOTICS)) codeine (CODEINE) AdvReac Intermediate NAUSEA Verified 08/02/24 11:44 Review of Systems Sugical H&P ROS: Negative: Constitution, Cardiovascular, Respiratory, Neurological, Psychiatric, Hem-Onc, Allergic/Immunologic, Gastrointestinal, Genitourinary, Musculoskeletal, Integumentary, Endocrine and Eyes/Ears/Nose/Throat Exam Surgical H&P Exam: Normal: HEENT, Normal: Heart, Normal: Lungs, Normal: Extremities, Normal: Abdomen, Normal: Skin and Normal: Neurological Plan Diagnosis/Plan: Unchanged (cysto, left retro, ureteroscopy, laser, stent) I have reviewed the history and physical and performed a pertinent physical examination on my patient. No changes have occurred unless specified. Time Spent With Patient Time: Total time managing care of this patient today ____ minutes.
--- NOTE | 2024-10-02 12:49 | W.PM.OPN ---
Operative Note Operative Note Date of Service: 10/02/24 Narrative: PreOperative Diagnosis: Left renal stones Post Operative Diagnosis: Left renal stones multiple. Upper pole calices x2. Lower pole calyx multiple. Procedure: - cystoscopy, left retrograde - left dilatation of ureteric orifice under fluoroscopy - left ureteroscopy, laser lithotripsy, stone basketing - multiple calices with multiple stones - left stent placement Surgeon: Dr Joe Contreras Anesthesia: General Indications for procedure: CT imaging stones in both upper pole calices and in lower pole calyx. Question of stones in other calices. Prior history of stones. Procedure: After informed consent was verified patient was brought to the operating placed in supine position. Anesthesia was administered per protocol. Patient was placed in modified dorsal lithotomy position and prepped and draped in a sterile fashion. Safety pause time-out and side of surgery confirmed. Antibiotics confirmed. A 22 Chadian cystoscope was inserted per urethra. The urethra and bladder were normal in their entirety. Both ureteric orifices were in normal position. The left ureteric orifice was cannulated and a retrograde examination was performed. No filling defects seen within ureter or renal pelvis. A Sensor guidewire was placed up to the level of the renal pelvis under fluoroscopy. The rigid cystoscope was removed and the inner cannula of ureteric access sheath was used under fluoroscopy to dilate the ureteric orifice. The steerable vacuum ureteric access sheath was placed and the inner cannula with access wire removed. The digital flexible ureteral scope was placed. The renal pelvis was examined in its entirety. There were found to be stones partially submucosal and mucosal in both upper pole calices. There was a collection of stones in the lower pole calyx approximately 3 of them each about 5 mm that had been evident on the CT scan. Using a 274 micron holmium laser and laser settings of 0.6 joules and 6 hertz all of the stones were freed from their mucosal attachments. Other numerous small stones were also freed found within other calices. Every calyx was examined. The steerable vacuum sheath was adjusted to all calices in small amounts of suction were used in order to remove stone fragments. A 1.9 Chadian ZeroTip basket was used to remove stone fragments. Multiple passes were made. At the completion of the stone procedure a Sensor wire was placed back into the renal pelvis. The rigid cystoscope was backloaded over the wire and advanced into the bladder. A 6 Chadian by 26 cm double-J stent was placed into the renal pelvis and bladder under a combination of fluoroscopy and direct visualization. Proximal positioning of the stent was confirmed using fluoroscopy. The bladder was emptied. The patient tolerated the procedure well and was extubated in the operating room, and transferred in stable condition to the recovery area. Pathology: Stones Drains: Drainage above [facility] code C9761 describes cystourethroscopy, with ureteroscopy and/or pyeloscopy, with lithotripsy, and ureteral catheterization for steerable vacuum aspiration of the kidney, collecting system, ureter, bladder, and urethra if applicable (must use a steerable ureteral catheter).
== END 2024-10-02 14:29 | disposition home or self-care (01) ==
PROVIDERS: PCP Family Medicine; Visit Provider Urology
PROC: (CPT 52356; principal; 2024-10-02 11:30)
DX: N20.0 Calculus of kidney (principal); N40.1 Benign prostatic hyperplasia with lower urinary tract symptoms; N13.8 Other obstructive and reflux uropathy; E29.1 Testicular hypofunction; Z87.442 Personal history of urinary calculi; I25.10 Atherosclerotic heart disease of native coronary artery without angina pectoris; I25.2 Old myocardial infarction; Z95.1 Presence of aortocoronary bypass graft; G47.33 Obstructive sleep apnea (adult) (pediatric); Z79.899 Other long term (current) drug therapy; Z96.82 Presence of neurostimulator; Z79.82 Long term (current) use of aspirin; Z88.0 Allergy status to penicillin; Z88.1 Allergy status to other antibiotic agents; Z88.2 Allergy status to sulfonamides; Z88.5 Allergy status to narcotic agent; Z98.84 Bariatric surgery status; Z98.890 Other specified postprocedural states; Z87.891 Personal history of nicotine dependence
CPT/HCPCS: 52356; 82365; 88300; C1758; C1769; C2617; J1885; J1956; J2003; J2704; J3010; Q9967

== ENCOUNTER → 2024-10-02 09:40 | Outpatient (BNV) | payer OTHER, SELFPAY | PROVIDERS: PCP Family Medicine; Visit Provider Urology | DX: N20.0 Calculus of kidney (principal) | CPT/HCPCS: 52356; 74420 ==

== ENCOUNTER 2024-10-13 10:06 | Outpatient (AMB) | payer OTHER, SELFPAY ==
--- OUTSIDE RECORDS SUMMARY | 2024-02-25 07:20 | XMS_ITS ---
Author Organization [facility] Address [address] [place] [address] Care Team Providers Care Sand Hauler Name Role Phone Álvaro Noble Primary Care Provider Kapil Aponte Jr Unavailable [phone] REASON FOR VISIT change in bowels Encounters Encounter Location Date Provider Diagnosis [facility] [place] [address] [place], [place] [phone] 02/25/2024 Kapil Morris Jr Change in stool R19.5 and Colon polyp K63.5 Assessments Encounter Date Diagnosis (ICD Code) Assessment Notes Treatment Notes Treatment Clinical Notes Section Notes 02/25/2024 Change in stool (ICD-10 - R19.5) 02/25/2024 Colon polyp (ICD-10 - K63.5) Plan Of Treatment Next Appt Details Provider Name:Kapil engle Jr, 03/01/2025 01:15:00 PM, [address] [facility], [address], [place], [address], Progress Notes * ARNAVVIELKA KEELYDOB:1955 (68 yo M)Acc No.[id number]:02/25/2024 COLON WITH MAC Patient: KEELY CALDERON Provider: Yamil Morris MD :1955 A ge:68 Y S ex:Male Date:02/25/2024 Address:[address] [place], [place] [id number] Pcp:Álvaro Noble Subjective: * Chief Complaints: * 1 . Change in bowels. * Medical History: Objective: * Vitals: Assessment: * Assessment: 1. C hange in stool - R19.5 (Primary) 2 . C olon polyp - K63.5 ? Plan: * Treatment: * Procedure Codes: 4 5380 COLONOSCOPY AND BIOPSY, 0529F INTRVL 3+YRS PTS CLNSCP DOCD * * The named appointment provid er may or may not be the originator of this progress note, and it is not deemed complete until electronically signed by the appointment provider. Sign off status: Pending * Provider: Yamil Morris MD Date: 0 02/25/2024 Generated for Geovany kidd/Eliseo/Myriamransmitting on: 0 10/13/2024 10:59 AM EDT
--- NOTE | 2024-10-13 10:29 | A.OFFVIS_ITS ---
Intake Visit Reasons: Stent removal Intake Note: Patient is present for: stent removal Urology Medication:TESTOSTERONE Blood Thinner:ASPIRIN Straw Hat Machine Operator Required: No Accompanied by: Self / Same As Patient Allergies clindamycin Allergy (Intermediate, Verified 10/13/24 10:30) Gastrointestinal Upset latex (LATEX) Allergy (Intermediate, Verified 10/13/24 10:30) RASH Penicillins (PENICILLINS) Allergy (Intermediate, Verified 10/13/24 10:30) RASH/HIVES Sulfa (Sulfonamide Antibiotics) (SULFA(SULFONAMIDE ANTIBIOTICS)) Allergy (Intermediate, Verified 10/13/24 10:30) HIVES, hospitalized, edema codeine (CODEINE) Adverse Reaction (Intermediate, Verified 10/13/24 10:30) NAUSEA HPI Comments Details: Butch is a pleasant male. He is a patient of Dr Soto. 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-sodium on fluid restriction Follow-up from intervention Has been on B6 and allopurinol Stone composition calcium oxalate monohydrate Plan repeat imaging in three-month with Uro risk Start potassium citrate Hypogonadism Testosterone replacement ongoing Labs 05/29 T 569, PSA 2.6, 11/28 T1500 4.3, 07/30 T 390 2.2, 06/30 860, 11/01 T 1200 PSA 5.6 Did have elevation August 2020 with UTI - PSA 27 Injection Day - Lab Day Wed Current therapy testosterone injections administers injection every 2 weeks Nephrolithiasis Longstanding Multiple prior procedures Imaging - 07/31 right 7 mm stones, left 3 mm stone - 01/30 renal ultrasound bilateral 3 mm stones - 08/01 renal ultrasound bilateral stones 6 mm right, left 3 mm - 08/02 renal ultrasound bilateral stones 5-6 mm 24 hour urine - 06/30 adequate volume 1.6 L, low citrate Stone composition - 10/02 Tyrese ox monohydrate 80% Intervention - 10/31 right ESWL - 10/02 right ureteroscopy with laser lithotripsy Lower urinary tract Prior laser prostate procedure 2018 Did have bladder neck contracture Off Flomax Cystoscopy 06/28 open with TURP defect PFSH Medical History Elevated cholesterol Skin cancer H/O supraventricular tachycardia Back pain Hyponatremia Synovial cyst Bipolar disorder Larson esophagus GERD (gastroesophageal reflux disease) Other obstructive and reflux uropathy Benign prostatic hyperplasia with lower urinary tract symptoms Hypogonadism in male Former smoker Anxiety Depression Kidney stones Hiatal hernia Sleep apnea Myocardial infarct CAD (coronary artery disease) Surgical History (Updated 09/28/24 @ 14:00 by Nayana Collins RN) S/P insertion of spinal cord stimulator Hx of tonsillectomy History of esophagogastroduodenoscopy (EGD) H/O colonoscopy H/O hernia repair H/O gastric bypass History of coronary artery bypass surgery History of lithotripsy History of spinal fusion History of cholecystectomy History of appendectomy Social History Are you a primary intensive care nurse to a significant other at home: No Do you presently have visiting nurse or other home services: No Alcohol intake: former Patient Tobacco Use Status: Former Tobacco user Review of Systems Const Denies chills and Denies fever(s) Card Reports no additional complaints and Denies syncope Resp Denies cough GI Denies abdominal pain and Denies heartburn Reports as per HPI and Denies change in libido Neuro Denies syncope Psych Denies change in libido Endo Denies change in libido Physical Exam Const General: cooperative, healthy appearing, comfortable and no acute distress Orientation/consciousness: patient oriented x3 HEENT Face and sinus: Yes normal facial exam Mouth: moist mucous membranes Neck Neck: Yes normal visual inspection, Yes full ROM and Yes trachea midline Chest Chest palpation & inspection: normal inspection of the chest Resp Effort & Inspection: normal respiratory effort, able to speak in complete sentences and no respiratory distress GI Inspection: Yes normal to inspection Back/Spine/Pelvis Cervical Spine: normal cervical lordosis Thoracic/Lumbar Spine: thoracic and lumbar spine normal to inspection Skin General skin exam: no rashes or lesions noted Neuro General: patient oriented x3, gait normal, tone normal and moves all extremities Extrem General: Yes normal to inspection and Yes capillary refill normal Office Procedures Cystoscopy Consent Discussed risk and benefit or proposed procedure with the patient. Information consent for procedure given to the patient. Discussed technical aspects, risks, benefits and alternatives in full. Addressed all of the patient's questions and concerns regarding the procedure. The patient demonstrated knowledge and understanding. They wish to proceed with this procedure. Preparation The patient was prepped in the usual manner. A front desk specialist was present and in the room. Genitalia was prepped with betadine solution in a sterile manner. Lidocaine Jelly 2% was placed into the urethra and 16Fr flexible Olympus cystoscope was inserted into the meatus after adequate lubrication. Procedure A well lubricated 16 Slovenian cystoscope was placed No abnormality noted of urethra during placement Indwelling stent seen within bladder emerging from left ureteric orifices The stent was grasped with a 3 prong grasper and removed without difficulty The patient tolerated the procedure well [id number] with stent removal DISPOSABLE SCOPE URO-G FLEXIBLE SCOPE Procedure code (CPT) selection complete Office Meds lidocaine HCl 2 % mucosal jelly in applicator Performing Provider: Joe Contreras MD Performing Location: [facility] Administered by: Daryl Sutton LPN on 10/13/24 10:45 Dose Route Admin Location Dispensed Lot Number Expiration Date ND Photographic Machine Operator 10 mL intra-urethral 10 mL nitrofurantoin monohydrate/macrocrystals 100 mg capsule Performing Provider: Joe Contreras MD Performing Location: [facility] Administered by: Daryl Sutton LPN on 10/13/24 10:45 Dose Route Admin Location Dispensed Lot Number Expiration Date ND Photographic Machine Operator 100 mg PO 1 cap Assessment & Plan Assessment & Plan (1) Kidney stones: Code(s): N20.0 - Calculus of kidney Category: Medical Plan Start potassium citrate Three-month follow-up imaging and Uro risk Orders: Orders AMB Cystoscopy Today N20.0 - Calculus of kidney US renal BI 3 Months N20.0 - Calculus of kidney URORISK 1 Month N20.0 - Calculus of kidney Medications: New potassium citrate ER 20 mEq (2 x 10 mEq (1,080 mg)) PO BID 360 tabs 0RF 90 days N20.0 - Calculus of kidney Patient Instructions: This note is constructed using voice recognition software. While every effort has been made to ensure accuracy epic radiant analyst errors may have been included. Imaging studies, laboratory and physical exam results were discussed and reviewed in detail. No major barriers to patient understanding were identified. An opportunity to ask questions regarding the treatment plan was provided. All questions were answered. The patient expressed understanding and agreement with the above treatment plan. The patient is aware they should contact our office by phone for worsening of their current condition or the appearance of new urologic symptoms. Compliance is encouraged with any medications and followup testing that is ordered. It is a privilege to participate in the urologic care of your patient. If you have any questions or concerns regarding treatment for the above conditions, or other urologic issues, please do not hesitate to contact me. The office telephone contact is [phone]. Sincerely, Dr Joe Contreras MD, [facility] - Urology Compassionate Specialist Care for the Genitourinary System Coding Level of Care Code Est Pt Level 4 (57525) Diagnoses Kidney stones N20.0 CPT Codes Cystoscopy - CPT: 36831-[id number] with stent removal ([id number])
--- OUTSIDE RECORDS SUMMARY | 2024-10-13 11:01 | XMS_ITS | Patient Health Record ---
Author Organization [facility] Address [address] [place] [address] Care Team Providers Care Director Translation Name Role Phone Álvaro Noble Primary Care Provider Kapil Aponte Jr Unavailable [phone] Allergies Allergen (clinical drug ingredient) Drug/Non Drug Allergy documented on EMR Reaction Allergy Type Onset Date Status codeine Codeine Unknown Drug Allergy Active Sulfa Unknown Drug Allergy Active Penicillin Unknown Drug Allergy Active Latex latex (uncoded) Unknown Allergy Acti ve Results Component Value Reference Range Notes Pathology Reviewed date:03/02/2024 02:43:56 PM Interpretation: Performing Lab:[facility], [address] [place] [phone] Notes/Report: Creatinine GFR POC Reviewed date:06/14/2024 07:25:35 AM Interpretation: Performing Lab:[facility], [address] [place] [phone] Notes/Report: [id number] 0.87 >60 1607 [facility] Creatinine POC 0.9 0.5-1.4 mg/dL GFR POC > 60 Chronic Kidney Disease: Estimated GFR < 60 mL/min/1.73m2 Severe Kidney Disease: Estimated GFR < 15 mL/min/1.73m2 CT abdomen pelvis w con Reviewed date:06/15/2024 09:39:07 AM Interpretation: Performing Lab: Notes/Report: [address] [address] [address] Scan Report Signed Patient: Keely Renae MR#: [id number] : 1955 Acct:[id number] Age/Sex: 68 / M ADM Date: 06/13/24 Loc: HO.CT Attending Dr: Kapil Morris MD Ordering Physician: Kapil Morris MD Date of Service: 06/13/24 Procedure(s): CT abdomen pelvis w IV con Accession Number(s): [id number] cc: Kapil Morris MD; Álvaro Noble MD Report Number: [id number]: Total DLP = 518.00 mGy-cm CLINICAL HISTORY: ABDOMINAL PAIN CT ABDOMEN AND PELVIS WITH CONTRAST Comparison: None Findings: No basilar consolidation or pleural effusion. No acute abnormalities in the solid organs. Multiple 1-3 mm nonobstructing bilateral intrarenal calculi. Cholecystectomy. Dense aortic and iliofemoral artery calcifications. No AAA. No lymphadenopathy. No bowel obstruction, pneumoperitoneum, or pneumatosis. Prior gastric surgery. Oakhh-jn-qmwdtahr hiatal hernia. No ascites or organized fluid collection. No significant mesenteric or paracolic edema. There are multiple distal descending colon and sigmoid diverticula. Large colonic stool burden. Tiny fat containing umbilical hernia. Appendix is not identified with certainty. No significant inflammatory changes are seen in its expected location. Urinary bladder unremarkable. Prostate size appears within normal limits. Streak artifact from a device in the dorsal subcutaneous tissues of the lower right flank with neurostimulator leads extending cephalad into the thoracic spine, tips outside the field of view. L5-S1 discectomy and posterior fusion. IMPRESSION: 1. No obstructive or acute inflammatory changes in the gastrointestinal and genitourinary tracts. 2. Diverticulosis coli. Large colonic stool burden. 3. Prior gastric surgery. Wiomc-rq-rafmgatf hiatal hernia. 4. Nonobstructing bilateral nephrolithiasis. This document has been electronically signed by: Janet Geller DO on 06/14/2024 15:16:55 Dictated By: Janet Geller MD Signed By: <Electronically signed by Janet Geller MD in OV> 06/14/24 1517 DD/ 151 TD/TT: 06/14/24 151 Sales Leader: Reason For Referral No Information Medications Medication [...] 4 MG TAKE 1 TABLET BY [facility] EVERY DAY for 30 Not-Taking Hyoscyamine Sulfate [...] Problem Status W/U Status Risk Notes Problem 803718378 Colon cancer screening (Z12.11) Active confirmed Problem 65257973 Epigastric pain (R10.13) Active confirmed Problem 450074027 Larson's esophagus without dysplasia (K22.70) Active confirmed Problem 571342035 Barretts esophagus without dysplasia (K22.70) Active confirmed Problem 759623574 Long-term use of aspirin therapy (Z79.82) Active confirmed Problem 245090008 Abnormal barium swallow (R93.3) Active confirmed Problem 39574687 Change in bowel movement (R19.8) Active confirmed Problem 916529504 Spasm of bowel (K58.9) Active confirmed Vital Signs Temperature 98.6 degrees Fahrenheit 04/26/2024 Blood pressure diastolic 01 mm Hg 04/26/2024 Height 70 in 04/26/2024 Blood pressure systolic 001 mm Hg 04/26/2024 Weight 199.4 lbs 04/26/2024 BMI 28.61 kg/m2 04/26/2024 Encounters Encounter Location Date Provider Diagnosis [facility] [address] [place] [id number] 02/25/2024 Kapil Morris Jr Change in stool R19.5 and Colon polyp K63.5 [facility] [address] [place] [phone] 12/27/2023 Kapil Morris Jr Change in bowel movement R19.8 ; Spasm of bowel K58.9 and Larson's esophagus without dysplasia K22.70 [facility] [address] [place] [phone] 04/26/2024 Kapil Morris Jr Generalized abdominal pain R10.84 [facility] [address] [place] [phone] 03/02/2024 Kapil Morris Jr [facility] [address] [place] [phone] 04/25/2024 Kapil Morris Jr [facility] [address] [place] [phone] 05/04/2024 Kapil Morris Jr [facility] [address] [place] [phone] 06/15/2024 Kapil Morris Jr Assessments Encounter Date Diagnosis [...] 01:15:00 PM, [address], [address], [place], [address], Insurance Providers Payer Name Payer Address Payer Phone Subscriber Number Group Number Insured Name Patient Relationship to Insured Coverage Start Date Coverage End Date [facility] [address] [place] [phone] [id number] KEELY RENAE Self - patient is the insured Medical (General) History Medical History History ICD Code Coronary artery disease, history of [place] 2 014 Nephrolithiasis DOMONIQUE/CPAP Larson's esophagus, EGD [...] x4 2014 Multiple spinal surgeries 2018 cholecystectomy 2001 appendectomy 1999 tonsillectomy 1964 Hospitalization History Reason Date(Month/Year) 2 hospital stays for pneumonia aspiratio n
--- OUTSIDE RECORDS SUMMARY | 2024-10-13 11:01 | XMS_ITS | Clinical Summary ---
Author Organization [facility] Facility Address [address] [address] Care Team Providers Care Security Alarm Installer Name Role Phone Unavailable Primary Care Provider [...] Diabetes: Visual Foot Exam 02/22/2022 Influenza Vaccine (#1) 2024 Hepatitis B Vaccine Aged Out No longe r eligible based on patient's age to complete this topic Insurance [facility]
--- OUTSIDE RECORDS SUMMARY | 2024-10-13 11:02 | XMS_ITS | Encounter Summary ---
Author Organization [facility] Address [address] [facility] [address] [place] [phone] Phone Care Team Providers Care Resourcing Advisor Name Role Phone Álvaro Noble MD Primary Care Provider + Young Ramos MD Unavailable [phone] Rodolfo Milan MD Unavailable Encounter Details Date Type Department Care Team (Late st Contact Info) Description 05/23/2021 Procedure Pass [facility] [address] [place] [phone] Social History Tobacco Use Types Packs/Day Years Used Date Smoking Tobacco: Former Cigarettes 1 45 0 10/07/1974 - 04/09/2015 Smokeless Tobacco: Former Comments:light smoker I stop ped in 2014 after Heart Attack and Heart surgery Alcohol Use Standard Drinks/Week Comments Not Currently 0 (1 standard drink = 0.6 oz pure alcohol) Alcoholism. Stopped in 1999 and an AA member ever since. Sex and Gender Information Value Date Recorded Sex Assigned at Male 09/03/2020 8:51 AM EDT Legal Sex Male 8:35 AM EDT Gender Identity Male 09/03/2020 8:51 AM EDT Sexual Orientation Straight 09/03/2020 8: 51 AM EDT documented as of this encounter Plan of Treatment Not on file documented as of this encounter Visit Diagnoses Not on filedocumented in this encounter Care Teams Resourcing Advisor Relationship Specialty Start Date End Date Álvaro Noble MD [address] [place] [id number] PCP - General Family Medicine 09/03/20 Young Ramos MD [address] [place] [phone] [email or web address] Gastroenterology 12/31/20 Rodolfo Milan MD [address] [place] [address] Cardiology 05/12/21 documented as of this encounter Additional Source Comments The information contained in this document represents components of the legal health record. It is not the complete legal health record.[facility]
== END 2024-10-13 11:09 | disposition home or self-care (01) ==
LOC: HO.HUSH 10:06
PROVIDERS: PCP Family Medicine; Visit Provider Urology
DX: N20.0 Calculus of kidney (principal)
CPT/HCPCS: 52310

== ENCOUNTER → 2024-10-13 10:06 | Outpatient (BNVA) | payer OTHER, SELFPAY | PROVIDERS: PCP Family Medicine; Visit Provider Urology | DX: Z46.6 Encounter for fitting and adjustment of urinary device (principal); N20.0 Calculus of kidney | CPT/HCPCS: 52310 ==

== ENCOUNTER 2024-10-14 12:27 | Inpatient (IN) | payer OTHER, SELFPAY ==
--- OUTSIDE RECORDS SUMMARY | 2024-02-25 07:20 | XMS_ITS ---
Author Organization [facility] Address [address] [place] [address] Care Team Providers Care Automotive Painter Name Role Phone Álvaro Noble Primary Care Provider Kapil Aponte Jr Unavailable [phone] REASON FOR VISIT change in bowels Encounters Encounter Location Date Provider Diagnosis [facility] Outpatient [address] [place], [place] [phone] 02/25/2024 Kapil Morris Jr Change in stool R19.5 and Colon polyp K63.5 Assessments Encounter Date Diagnosis (ICD Code) Assessment Notes Treatment Notes Treatment Clinical Notes Section Notes 02/25/2024 Change in stool (ICD-10 - R19.5) 02/25/2024 Colon polyp (ICD-10 - K63.5) Plan Of Treatment Next Appt Details Provider Name:Kapil engle Jr, 03/01/2025 01:15:00 PM, [address] [facility], [address], [place], [address], Progress Notes * ARNAVVIELKA KEELYDOB:1955 (68 yo M)Acc No.[id number]:02/25/2024 COLON WITH MAC Patient: KEELY CALDERON Provider: Yamil Morris MD :1955 A ge:68 Y S ex:Male Date:02/25/2024 Address:[address] [place], [place] [phone] Pcp:Álvaro Noble Subjective: * Chief Complaints: * [...] 02/25/2024 Generated for Geovany kidd/Eliseo/Niallsmitting on: 0 10/14/2024 01:34 PM EDT
[2024-10-14] VITALS (8 sets, daily range): BP systolic 101–134; BP diastolic 44–81; PULSE 95–135; RESP 13–21; TEMP 36.6–39.3; O2SAT 88–98; BMI 27.8
--- NOTE | ~2024-10-14 | CT_ITS ---
CLINICAL HISTORY: SOB CT chest with IV contrast. COMPARISON: None provided. FINDINGS: Visualized thyroid is unremarkable. No supraclavicular or axillary lymphadenopathy. Ascending aorta and main pulmonary artery are normal in caliber. Coronary artery calcifications present within the LAD and circumflex. No pericardial effusion. Moderate hiatal hernia. No mediastinal lymphadenopathy. No pleural effusion. Patchy ground-glass opacities present within the right upper and superior segment of the right lower lobes. Moderate emphysema. Trachea and central airways are clear. No significant bronchial wall thickening. No bronchiectasis. Visualized portions of the upper abdomen are unremarkable. Spinal stimulator lead present within the mid to lower thoracic spine. Status post sternotomy. Partially visualized anterior cervical fusion hardware. Moderate spondylosis. No acute fracture or suspicious bone lesion. IMPRESSION: 1. Patchy ground-glass opacities present within the right upper lobe and to a lesser degree of the right lower lobe suggestive of an infectious or inflammatory process including aspiration pneumonitis. 2. Coronary artery atherosclerosis. 3. Moderate hiatal hernia. This document has been electronically signed by: Ronnie Gautam MD on 10/14/2024 14:34:29
--- NOTE | ~2024-10-14 | CT_ITS ---
CLINICAL HISTORY: abd pain, recent stent removal, septic CT abdomen and pelvis with IV contrast. COMPARISON: CT abdomen and pelvis dated 06/13/24 at 16:11 EDT FINDINGS: Moderate hiatal hernia. No focal hepatic lesion. Cholecystectomy. Normal spleen. Normal pancreas. Normal adrenal glands. Symmetric renal enhancement. Right renal nonobstructing calculi measuring 5 mm. Right-sided hydronephrosis or hydroureter. No right ureteral calculus. Left renal nonobstructing calculi measuring up to 4 mm. No left-sided hydronephrosis. No left hydroureter. No left ureteral calculus. Appendix is not identified. Mild colonic stool burden most pronounced within the ascending colon. No bowel obstruction. Mild distal colonic diverticulosis without evidence of diverticulitis. No mesenteric or retroperitoneal lymphadenopathy. Suture material present along the greater curvature of the stomach. Moderate aortoiliac atherosclerotic vascular calcifications. Urinary bladder is unremarkable given degree of distention. Prostate is enlarged measuring up to 5.3 cm in diameter. No inguinal lymphadenopathy. Small fat containing umbilical hernia. Grade 1 anterolisthesis of L4 on L5, degenerative. Spinal stimulator hardware partially visualized within the mid to lower thoracic spine. Intervertebral disc spacer and posterior spinal fixation hardware present at L5-S1 moderate multilevel spondylosis. No acute fracture. IMPRESSION: 1. No cause for patient's symptoms identified. No evidence of appendicitis or diverticulitis. No bowel obstruction. 2. Moderate hiatal hernia. This document has been electronically signed by: Ronnie Gautam MD on 10/14/2024 14:31:40
--- NOTE | 2024-10-14 12:29 | ED_ITS ---
HPI - General Adult General Chief complaint: Urogenital-Male Stated complaint: fever in pain, dr goodson called Time Seen by Provider: 10/14/24 12:43 Source: patient and family (patient's ) Mode of arrival: ambulatory Limitations: no limitations History of Present Illness ED Provider: Theresa Strickland PA-C HPI narrative: Patient is a 68 year old assigned male at with a history of elevated cholesterol, GERD, Barett esophagus, BPH, anxiety, depression, hiatal hernia, sleep apnea, FL, CAD s/p bypass surgery, bipolar disorder, SVT, and kidney stones s/p stent removal by Dr. Contreras on 10/13/2024 presenting to the emergency department today with fever, nausea, and feeling generally unwell. Patient states he had a stent placed for kidney stones on 10/02/[address] Contreras which was removed yesterday. Patient reports feeling well when he went to bed last night, but woke up this morning feeling generally unwell. Patient reports temperature at home was 102. Patient reports feeling nauseous. Patient's states that his urine was bloody this morning, which has since cleared but has a very malodorous scent. Patient reports some mild suprapubic pain. Patient denies dizziness, lightheadedness, vomiting, chest pain, difficulty breathing, shortness of breath, recent trauma or falls, or any other complaints at this time. Related Data Home Medications ?Medication ?Instructions ?Recorded ?Confirmed aspirin 81 mg tablet 81 mg PO Q OTHER DAY 0 09/28/24 clonazepam 1 mg tablet 1 tab PO BEDTIME PRN Sleep 1 09/28/24 ezetimibe 10 mg tablet (Zetia) 10 mg PO DAILY 11/16/19 09/28/24 rosuvastatin 5 mg tablet 5 mg PO 3XW 11/16/19 5 carvedilol 6.25 mg tablet 1 tab PO BID 11/17/19 tramadol 50 mg tablet 50 mg PO TID PRN Pain 01/29/23 esomeprazole magnesium 40 mg 40 mg PO DAILY 11/09/22 0 09/28/24 capsule,delayed release omeprazole 40 mg capsule,delayed 40 mg PO BID 12/01/22 09/28/24 release Previous Rx's ?Medication ?Instructions ?Recorded safety needles 18 gauge x 1 (Easy #50 ea 09/26/20 Touch FlipLock Needle) syringe with needle 3 mL 21 gauge #50 ea 09/26/20 x 1 1/2 (BD Luer-Jacoby Syringe) tramadol 50 mg tablet 50 mg PO Q6H PRN pain (scale score 12/23/22 1-3) #8 tabs pyridoxine (vitamin B6) 50 mg 50 mg PO DAILY 90 days # 90 tabs 06/15/24 tablet allopurinol 100 mg tablet 100 mg PO DAILY 90 days #90 tabs 08/07/24 testosterone cypionate 200 mg/mL 200 mg IM Q2W #2 mL 0 08/10/24 intramuscular oil phenazopyridine 100 mg tablet 100 mg PO TID PRN Spasm 4 days #12 10/02/24 (Pyridium) tabs potassium citrate 10 mEq (1,080 20 meq (2 x 10 mEq (1, 080 mg)) PO 10/13/24 mg) tablet,extended release BID 90 days #360 tabs Allergies Allergy/AdvReac Type Severity Reaction Status Date / Time clindamycin Allergy Intermediate Gastrointestinal Verified 10/14/24 12:34 Upset latex (LATEX) Allergy Intermediate RASH Verified 10/14/24 12:34 Penicillins (PENICILLINS) Allergy Intermediate RASH/HIVES Verified 10/14/24 12:34 Sulfa (Sulfonamide Allergy Intermediate HIVES, Verified 10/14/24 12:34 Antibiotics) hospitalized, (SULFA(SULFONAMIDE edema ANTIBIOTICS)) codeine (CODEINE) AdvReac Intermediate NAUSEA Verified 10/14/24 12:34 Review of Systems 2 Constitutional: Constitutional: Reports as per HPI Eyes: Eyes: Reports as per HPI ENT: Reports as per HPI Cardiovascular: Cardiovascular: Reports as per HPI Respiratory: Respiratory: Reports as per HPI Gastrointestinal: Gastrointestinal: Reports as per HPI Genitourinary: Genitourinary: Reports as per HPI Musculoskeletal: Musculoskeletal: Reports as per HPI Integumentary/Breasts: Skin/Breast: Reports as per HPI Neurologic: Reports as per HPI Psychiatric: Psychiatric: Reports as per HPI Endocrine: Endocrine: Reports as per HPI Hematologic/Lymphatic: Hematologic/Lymphatic: Reports as per HPI Allergic/Immunologic: Allergic/Immunologic: Reports as per HPI [facility] Past Medical History Attestation statement: The following information was validated with the patient. Source: old records reviewed and nursing notes reviewed Medical History Elevated cholesterol Skin cancer H/O supraventricular tachycardia Back pain Hyponatremia Synovial cyst Bipolar disorder Larson esophagus GERD (gastroesophageal reflux disease) Other obstructive and reflux uropathy Benign prostatic hyperplasia with lower urinary tract symptoms Hypogonadism in male Former smoker Anxiety Depression Kidney stones Hiatal hernia Sleep apnea Myocardial infarct CAD (coronary artery disease) Surgical History S/P insertion of spinal cord stimulator Hx of tonsillectomy History of esophagogastroduodenoscopy (EGD) H/O colonoscopy H/O hernia repair H/O gastric bypass History of coronary artery bypass surgery History of lithotripsy History of spinal fusion History of cholecystectomy History of appendectomy Social History Social History Are you a primary intensive care unit nurse to a significant other at home: No Do you presently have visiting nurse or other home services: No Alcohol intake: former Patient Tobacco Use Status: Former Tobacco user Smoked in Last 30 Days: No Use of substances other than those prescribed or required for medical reasons: No Advance Directives: No Advance Directives Information Provided: Yes Physical Exam ED Vital Signs: Vital Signs - 24 hr 10/14/24 12:30 10/14/24 13:02 10/14/24 14:00 Temperature 101.9 F H 102.8 F H 98.7 F Pulse Rate 135 H 124 H 107 H Respiratory Rate 18 13 21 H Blood Pressure 130/77 107/50 L 101/59 L Pulse Oximetry 94 88 L 98 Oxygen Delivery Method Room Air Room Air Nasal Cannula Oxygen Flow Rate 2 BMI result Body Mass Index 27.8 Const General: cooperative, no acute distress, alert and awake Nutritional Appearance: well nourished Orientation/consciousness: patient oriented x3 HENMT Head: Yes normal to inspection and Yes atraumatic Ears: hearing grossly normal bilaterally and external ears normal General nose exam: Normal external nose present, no nasal discharge noted and no epistaxis Face and sinus: Yes normal facial exam, No abrasion and No laceration Mouth: Normal oral and palatal mucosa present, no drooling and no muffled voice Eyes General: appearance normal, both eyes and all related structures Periorbital: periorbital findings normal Eyelids: Yes eyelids normal Conjunctivae: conjunctivae normal Pupils: Equal, round and reactive pupils present EOM: EOMs intact bilaterally Neck Neck: Yes normal visual inspection and Yes full ROM Resp Effort & Inspection: able to speak in complete sentences and labored Cardio Rate: tachycardic Rhythm: regular rhythm Neuro General: patient oriented x3, moves all extremities and CN's II-XI intact bilaterally Cranial nerves: Yes Equal, round and reactive pupils present Cognition (Neuro): normal cognition Extrem General: Yes normal to inspection, Yes full ROM and Yes capillary refill normal Psych Appearance: grossly normal Mental Status: mental status grossly normal Affect: normal affect Attitude: cooperative Thought process: Normal thought process present Thought content: Normal thought content present Insight: Good insight present (Psych) Course Course Course Narrative: This is a Rapid Medical Examination (RME) performed by Portillo Narayanan PA-C in triage. Full HPI, ROS, assessment and treatment plan per primary provider in the Main ED. Hx: 68 yo M hx CAD, FL, DOMONIQUE, bipolar disorder, GERD, neprholithiasis s/p sent removal in office by Dr. Contreras yesterday (10/13/24) here w/ fever of 102F this morning w/ assoc foul smelling urine. reports passing blood clots this morning. feels generally unwell. did not take motrin/tylenol this morning. called Dr. Goodson who advised to come to the ED. PE/vitals: febrile to 101.9F Plan: labs, lactic, blood cultures, UA Medications Administered Discontinued Medications Generic Name Dose Route Start Last Admin Trade Name Domq PRN Reason Stop Dose Admin Acetaminophen 975 mg 10/14/24 12:32 10/14/24 12:36 Acetaminophen 325 Mg Tablet PO 10/14/24 12:33 975 mg ONCE ONE Administration Ceftriaxone Sodium 2 gm 10/14/24 12:43 10/14/24 13:11 Ceftriaxone Sodium 2 Gm Vial IVPUSH 10/14/24 12:44 2 gm ONCE ONE Administration Sodium Chloride 2,640 mls @ 2,640 mls/hr 10/14/24 13:08 10/14/24 16:03 Ns 30 ml/kg infuse over 1 hr (2640 ml) 10/14/24 14:07 Infused IV Infusion .Q1H STA Iohexol 100 ml 10/14/24 14:02 10/14/24 14:02 Iohexol 350 Mg/Ml 100 Ml Infus..Btl IV 10/14/24 14:03 85 ml ONCE ONE Administration Medical Decision Making Medical Decision Making [facility] Narrative: Patient is a 68 year old assigned male at with a history of elevated cholesterol, GERD, Barett esophagus, BPH, anxiety, depression, hiatal hernia, sleep apnea, FL, CAD s/p bypass surgery, bipolar disorder, SVT, and kidney stones s/p stent removal by Dr. Contreras on 10/13/2024 presenting to the emergency department today with fever, nausea, and feeling generally unwell. Patient's physical exam showed a hypoxic, tachycardic, and febrile male. Patient was placed on 2 liters of oxygen which helped his hypoxia. Patient was given PO Tylenol. Patient's blood work showed an elevated WBC count of 15.7 but were otherwise unremarkable. Patient's urine showed evidence infection. Patient's chest CT showed evidence of pneumonia vs. pneumonitis. Patient's CT abd/pelvis showed no acute process. I suspected sepsis in this patient at 1243 on 10/14/2024. Patient was given IV fluid and Ceftriaxone. I spoke to the hospitalist team who agreed to admission. I explained my physical exam findings as well as all test results to the patient and the patient's . I answered all questions asked by the patient and the patient's . Patient and the patient's verbalized agreement and understanding with this treatment plan and admission. Differential Diagnosis Differential Diagnoses: The differential diagnosis associated with the presentation includes Sepsis Pneumonia Urosepsis UTI Admission/Observation Consideration of admission/observation: Escalation of care including admission/observation considered Patient admitted as noted in the MDM Rationale portion of this note. Consult Healthcare Provider Management of the patient was discussed with: Hospitalist (agreed to admission as noted in the MDM Rationale portion of this note. ) Lab Data [facility] Lab Attestation statement: I reviewed the patient's lab results. My interpretation of these results are in the MDM Rationale portion of this note. 10/14/24 12:55 10/14/24 12:55 Labs: Lab Results 10/14/24 10/14/24 Range/Units 12:55 13:00 WBC 15.7 H (4.8-10.8) X10*3/uL RBC 5.56 (4.60-5.80) X10*6/uL Hgb 16.2 (14.0-18.0) g/dl Hct 47.9 (42.0-52.0) % MCV 86.2 (80.0-98.0) fL MCH 29.1 (27.0-33.0) pg MCHC 33.8 (31.0-36.0) g/dl RDW 14.2 (11.0-16.0) % Plt Count 239 (160-400) X10*3/uL MPV 9.2 L (9.4-12.4) fL Immature Gran % (Auto) 0.6 H (0.0-0.4) % Neut % (Auto) 86.1 H (45-73) % Lymph % (Auto) 6.7 L (20-40) % [place] % (Auto) 6.0 (2-11) % Eos % (Auto) 0.3 (0-4) % Baso % (Auto) 0.3 (0-2) % Lymph # (Auto) 1.1 L (1.2-4.9) X10*3/uL [place] # (Auto) 1.0 (0.1-1.2) X10*3/uL Eos # (Auto) 0.1 (0.0-0.4) X10*3/uL Baso # (Auto) 0.1 (0.0-0.2) X10*3/uL Abs Immat Gran (auto) 0.09 H (0.00-0.03) X10*3/uL Absolute Neuts (auto) 13.6 H (2.0-8.3) x10*3/uL Absolute Nucleated RBC 0.000 (0.0-0.012) X10*3/uL Nucleated RBC % (auto) 0.0 (0.0-0.2) /100WBC Sodium 138 (135-145) mmol/L Potassium 3.8 (3.3-5.1) mmol/L Chloride 103 (96-108) mmol/L Carbon Dioxide 25 (22-29) mmol/L Anion Gap 14 (12-20) BUN 12 (9-16) mg/dL Creatinine 1.21 (0.5-1.4) mg/dL Estim Creat Clear Calc 65.2 Estimated GFR 60 Random Glucose 118 H (60-115) mg/dL Lactic Acid 1.7 (0.5-2.0) mmol/L Calcium 8.9 (8.4-10.2) mg/dL Magnesium 1.6 (1.6-2.6) mg/dL Total Bilirubin 0.6 (0.0-1.0) mg/dL AST 26 (5-37) U/L ALT 17 (0-40) U/L Alkaline Phosphatase 68 (39-117) U/L Total Protein 6.8 (6.5-8.0) g/dL Albumin 4.0 (3.5-5.0) g/dL Lipase 27 (8-78) U/L Urine Color Yellow Urine Appearance Cloudy Urine pH >= 9.0 (5.0-9.0) Ur Specific Renner 1.015 (1.005-1.025) Urine Protein Trace (Neg-Trace) mg/dL Urine Glucose (UA) Negative (Negative) mg/dL Urine Ketones Negative (Negative) mg/dL Urine Blood Large (3+) H (Negative) Urine Nitrite Negative (Negative) Ur Leukocyte Esterase Moderate (2+) H (Negative) Urine RBC >20 H (0-2) /HPF Urine WBC >50 H (0-5) /HPF Ur Squamous Epith Cells 0-2 (0-2) /HPF Urine Bacteria 4+ (None Seen) Hyaline Casts 0-2 (0-2) /LPF COVID-19 (SHASHI) Negative (Negative) COVID-19 Clin Com See Note Influenza Type A (MISA) Negative (Negative) Influenza Type B (MISA) Negative (Negative) Influenza A & B Note See Note Independent Interpretation I performed an independent interpretation of an: CT Scan Interpretation: My interpretation is in agreement with the radiologist's impression of these imaging studies. L Reason for Exam: abd pain, recent stent removal, septic CLINICAL HISTORY: abd pain, recent stent removal, septic CT abdomen and pelvis with IV contrast. COMPARISON: CT abdomen and pelvis dated 06/13/24 at 16:11 EDT FINDINGS: Moderate hiatal hernia. No focal hepatic lesion. Cholecystectomy. Normal spleen. Normal pancreas. Normal adrenal glands. Symmetric renal enhancement. Right renal nonobstructing calculi measuring 5 mm. Right-sided hydronephrosis or hydroureter. No right ureteral calculus. Left renal nonobstructing calculi measuring up to 4 mm. No left-sided hydronephrosis. No left hydroureter. No left ureteral calculus. Appendix is not identified. Mild colonic stool burden most pronounced within the ascending colon. No bowel obstruction. Mild distal colonic diverticulosis without evidence of diverticulitis. No mesenteric or retroperitoneal lymphadenopathy. Suture material present along the greater curvature of the stomach. Moderate aortoiliac atherosclerotic vascular calcifications. Urinary bladder is unremarkable given degree of distention. Prostate is enlarged measuring up to 5.3 cm in diameter. No inguinal lymphadenopathy. Small fat containing umbilical hernia. Grade 1 anterolisthesis of L4 on L5, degenerative. Spinal stimulator hardware partially visualized within the mid to lower thoracic spine. Intervertebral disc spacer and posterior spinal fixation hardware present at L5- S1 moderate multilevel spondylosis. No acute fracture. IMPRESSION: 1. No cause for patient's symptoms identified. No evidence of appendicitis or diverticulitis. No bowel obstruction. 2. Moderate hiatal hernia. This document has been electronically signed by: Ronnie Gautam MD on 10/14/2024 14:31:40 Dictated By: Ronnie Gautam MD Signed By: Electronically signed by Ronnie Gautam MD 10/14/24 1432 Reason for Exam: SOB CLINICAL HISTORY: SOB CT chest with IV contrast. COMPARISON: None provided. FINDINGS: Visualized thyroid is unremarkable. No supraclavicular or axillary lymphadenopathy. Ascending aorta and main pulmonary artery are normal in caliber. Coronary artery calcifications present within the LAD and circumflex. No pericardial effusion. Moderate hiatal hernia. No mediastinal lymphadenopathy. No pleural effusion. Patchy ground-glass opacities present within the right upper and superior segment of the right lower lobes. Moderate emphysema. Trachea and central airways are clear. No significant bronchial wall thickening. No bronchiectasis. Visualized portions of the upper abdomen are unremarkable. Spinal stimulator lead present within the mid to lower thoracic spine. Status post sternotomy. Partially visualized anterior cervical fusion hardware. Moderate spondylosis. No acute fracture or suspicious bone lesion. IMPRESSION: 1. Patchy ground-glass opacities present within the right upper lobe and to a lesser degree of the right lower lobe suggestive of an infectious or inflammatory process including aspiration pneumonitis. 2. Coronary artery atherosclerosis. 3. Moderate hiatal hernia. This document has been electronically signed by: Ronnie Gautam MD on 10/14/2024 14:34:29 Dictated By: Ronnie Gautam MD Signed By: Electronically signed by Ronnie Gautam MD 10/14/24 1431 Radiology Impression Discussion of test interpretation with radiology: I have reviewed the radiologist's reading. Independent Historian Clinical information obtained from an independent historian. History obtained from or confirmed by: Spouse (patient's provided additional history and confirmed the history provided by the patient. ) External Record Review External record reviewed: Outpatient record Critical Care Time Critical Care Time Critical Care Time: Yes Total Critical Care Time: 48 Attestation: I spent 48 minutes of Critical Care Time with this patient. This does not include time spent on separately reported billable procedures. Discharge Plan Discharge Clinical Impression: Sepsis, Pneumonia, Urinary tract infection, Hypoxia Patient Disposition: Admitted As Inpatient Print Language: [place]
[2024-10-14 13:00] LABS: MANUAL DIFF FLAG NO
[2024-10-14 13:02] LABS: Appearance Urine Cloudy; Glucose Urine UA Negative (Negative); Hematocrit 47.9 % (42.0-52.0); Hemoglobin 16.2 g/dl (14.0-18.0); Imm Gran Abs Auto 0.09 X10*3/uL (0.00-0.03); Imm Gran Pct Auto 0.6 % (0.0-0.4); Lymphocytes Absolute Auto 1.1 X10*3/uL (1.2-4.9); Mean Corpuscular HGB Conc 33.8 g/dl (31.0-36.0); Mean Corpuscular Hemoglobin 29.1 pg (27.0-33.0); Mean Corpuscular Volume 86.2 fL (80.0-98.0); NRBC Abs Auto 0.000 X10*3/uL (0.0-0.012); NRBC Pct Auto 0.0 /100WBC (0.0-0.2); PH >= 9.0 (5.0-9.0); Platelet Count 239 X10*3/uL (160-400); Red Blood Count 5.56 X10*6/uL (4.60-5.80); Specific Gravity - Urine 1.015 (1.005-1.025); UMIC TRIGGER UACC YES; White Blood Count 15.7 X10*3/uL (4.8-10.8)
[2024-10-14 13:04] LABS: UACC Culture Trigger YES
[2024-10-14] MEDS: SODIUM CHLORIDE 2640 ML IV (13:12)
[2024-10-14 13:24] LABS: COVID-19 Test Negative (Negative); IDNOW Serial# 58CA691E
[2024-10-14 13:25] LABS: Alanine Aminotransferase 17 U/L (0-40); Albumin Level 4.0 g/dL (3.5-5.0); Alkaline Phosphatase 68 U/L (39-117); Anion Gap 14 (12-20); Aspartate Amino Transferase 26 U/L (5-37); Blood Urea Nitrogen 12 mg/dL (9-16); Calcium 8.9 mg/dL (8.4-10.2); Carbon Dioxide 25 mmol/L (22-29); Chloride 103 mmol/L (96-108); Creatinine Clr Calc Pharmacy 65.2; Estimated Glomerular Filt Rate 60; Lipase 27 U/L (8-78); Magnesium 1.6 mg/dL (1.6-2.6); Potassium 3.8 mmol/L (3.3-5.1); Sodium 138 mmol/L (135-145); Total Protein 6.8 g/dL (6.5-8.0)
--- NOTE | 2024-10-14 13:25 | PC.NURSE ---
Addendum entered by Graciela Crystal RN 10/14/24 13:27: Patient is a 68 yo M hx CAD, [place], DOMONIQUE, bipolar disorder, GERD, neprholithiasis, stent placed on 10/02 for kidney stoned, s/p sent removal in office by Dr. Contreras yesterday (10/13/24) here w/ fever of 102F this morning w/ assoc foul smelling urine with some blood clots. Patient febrile at this time. Placed on the client application support engineer and stach noted to freq PAC's. Lungs essentially clear bilat. POX noted in the low 90's and placed on o2 therapy at 2L. Respirations evern and non-labored. Abdomen soft, sl distended, non-tender with positive bowel sounds. Denies any abdominal pain at this time but had LLQ pain eariler. states positive urinary symptoms. Positive pedal pulses with no edema. Original Note: Medical History Elevated cholesterol Skin cancer H/O supraventricular tachycardia Back pain Hyponatremia Synovial cyst Bipolar disorder Larson esophagus GERD (gastroesophageal reflux disease) Other obstructive and reflux uropathy Benign prostatic hyperplasia with lower urinary tract symptoms Hypogonadism in male Former smoker Anxiety Depression Kidney stones Hiatal hernia Sleep apnea Myocardial infarct CAD (coronary artery disease)
[2024-10-14 13:34] LABS: IDNOW Serial# 55D5AD1C; Influenza B2 Negative (Negative)
--- OUTSIDE RECORDS SUMMARY | 2024-10-14 13:36 | XMS_ITS | Patient Health Record ---
Author Organization [facility] Address [address] [place] [address] Care Team Providers Care Filtration Plant Mechanic Name Role Phone Álvaro Noble Primary [...] Pathology Reviewed date:03/02/2024 02:43:56 PM Interpretation: Performing Lab:[facility], [address] [place] [phone] Notes/Report: Creatinine GFR POC Reviewed date:06/14/2024 07:25:35 AM Interpretation: Performing Lab:[facility], [address] [place] [phone] Notes/Report: [id number] 0.87 >60 1607 [facility] Creatinine POC 0.9 0.5-1.4 mg/dL GFR POC > 60 Chronic Kidney Disease: Estimated GFR < 60 mL/min/1.73m2 Severe Kidney Disease: Estimated GFR < 15 mL/min/1.73m2 CT abdomen pelvis w con Reviewed date:06/15/2024 09:39:07 AM Interpretation: Performing Lab: Notes/Report: [address] [address] [address] Scan Report Signed Patient: Keely Renae MR#: [id number] 475 : 1955 Acct:[id number] Age/Sex: 68 / M ADM Date: 06/13/24 Loc: HO.CT Attending Dr: Kapil Morris MD Ordering Physician: Kapil Morris MD Date of Service: 06/13/24 Procedure(s): CT abdomen pelvis w IV con Accession Number(s): [id number] cc: Kapli Morris MD; Álvaro Noble MD Report Number: [id number]: Total DLP = 518.00 mGy-cm CLINICAL HISTORY: ABDOMINAL PAIN CT ABDOMEN AND PELVIS WITH CONTRAST Comparison: None Findings: No basilar consolidation or pleural effusion. No acute abnormalities in the solid organs. Multiple 1-3 mm nonobstructing bilateral intrarenal calculi. Cholecystectomy. Dense aortic and iliofemoral artery calcifications. No AAA. No lymphadenopathy. No bowel obstruction, pneumoperitoneum, or pneumatosis. Prior gastric surgery. [id number] hiatal hernia. No ascites or organized fluid [...] colonic stool burden. 3. Prior gastric surgery. [id number] hiatal hernia. 4. Nonobstructing bilateral nephrolithiasis. This document has been electronically signed by: Janet Geller DO on 06/14/2024 15:16:55 Dictated By: Janet Geller MD Signed By: <Electronically signed by Janet Geller MD in OV> 06/14/24 1517 DD/ 151 TD/TT: 06/14/24 151 Retail Marketing Manager: Reason For Referral No Information Medications Medication [...] 4 MG TAKE 1 TABLET BY [facility] EVERY DAY for 30 Not-Taking Hyoscyamine Sulfate [...] Problem Status W/U Status Risk Notes Problem 134533903 Colon cancer screening (Z12.11) Active confirmed Problem 63688768 Epigastric pain (R10.13) Active confirmed Problem 579042908 Larson's esophagus without dysplasia (K22.70) Active confirmed Problem 142144590 Barretts esophagus without dysplasia (K22.70) Active confirmed Problem 319040090 Long-term use of aspirin therapy (Z79.82) Active confirmed Problem 596790214 Abnormal barium swallow (R93.3) Active confirmed Problem 84480767 Change in bowel movement (R19.8) Active confirmed Problem 748266352 Spasm of bowel (K58.9) Active confirmed Vital Signs Temperature 98.6 degrees Fahrenheit 04/26/2024 Blood pressure diastolic 01 mm Hg 04/26/2024 Height 70 in 04/26/2024 Blood pressure systolic 001 mm Hg 04/26/2024 Weight 199.4 lbs 04/26/2024 BMI 28.61 kg/m2 04/26/2024 Encounters Encounter Location Date Provider Diagnosis [facility] [address] [place] [id number] 02/25/2024 Kapil Morris Jr Change in stool R19.5 and Colon polyp K63.5 [facility] [address] [place] [phone] 12/27/2023 Kapil Morris Jr Change in bowel movement R19.8 ; Spasm of bowel K58.9 and Larson's esophagus without dysplasia K22.70 [facility] [address] [place] [phone] 04/26/2024 Kapil Morris Jr Generalized abdominal pain R10.84 [facility] [address] [place] [phone] 03/02/2024 Kapil Morris Jr [facility] [address] [place] [id number] 04/25/2024 Kapil Morris Jr [facility] [address] [place] [phone] 05/04/2024 Kapil Morris Jr [facility] [address] [place] [phone] 06/15/2024 Kapil Morris Jr Assessments Encounter Date [...] 01:15:00 PM, [address], [address], [place], [address], Insurance Providers Payer Name Payer Address Payer Phone Subscriber Number Group Number Insured Name Patient Relationship to Insured Coverage Start Date Coverage End Date [facility] [address] [place] [phone] [id number] KEELY RENAE Self - patient is the insured Medical (General) History Medical History History ICD Code Coronary artery disease, history of [place] 2 014 Nephrolithiasis DOMONIQUE/CPAP Larson's esophagus, EGD [...]
--- OUTSIDE RECORDS SUMMARY | 2024-10-14 13:37 | XMS_ITS | Encounter Summary ---
Author Organization [facility] Address [address] [facility] [address] [place] [phone] Phone Care Team Providers Care Jig Bore Operator Name Role Phone Álvaro Noble MD Primary Care Provider + Young Ramos MD Unavailable [phone] Rodolfo Milan MD Unavailable Encounter Details Date Type Department Care Team (Late st Contact Info) Description 05/23/2021 Procedure Pass [facility] [address] [place] [phone] Social History Tobacco Use Types Packs/Day Years [...] on filedocumented in this encounter Care Teams Jig Bore Operator Relationship Specialty Start Date End Date Álvaro Noble MD [address] [place] [phone] PCP - General Family Medicine 09/03/20 Yougn Ramos MD [address] [place] [phone] [email or web address] Gastroenterology 12/31/20 Rodolfo Milan MD [address] [place] [address] Cardiology 05/12/21 documented as of this encounter Additional Source Comments The information contained in this document represents components of the legal health record. It is not the complete legal health record.[facility]
--- OUTSIDE RECORDS SUMMARY | 2024-10-14 13:37 | XMS_ITS | Clinical Summary ---
Author Organization [facility] Address [address] [facility] [address] [place] [phone] Phone Care Team Providers Care Conveyor System Dispatcher Name Role Phone Álvaro Noble MD Primary Care Provider + Young Ramos MD Unavailable [phone] Rodolfo Milan MD Unavailable Allergies Active Allergy Reactions Criticality Noted Date Comments Atorvastatin Myalgia 05/12/2021 Codeine Medium 10/07/2020 Feel sick Latex Hives High 10/07/2020 Rash Opioids-Meperidine And Related Medium 10/07/2020 Feel sick Oxycodone 05/12/2021 Can tolerate small doses of oxycodone - has gi distress w/ oxycontin Penicillins Diarrhea High 10/07/2020 Rash Sulfa (Sulfonamide Antibiotics) Acute Generalized Exanthematous Pustulosis High 10/07/2020 Medications carvedilol (COREG) 6.25 MG tablet Take 6.25 mg by mouth 2 (two) times a day with meals. Active rosuvastatin (CRESTOR) 5 MG tablet Take 5 mg by mouth 3 (three) times a week. Active ezetimibe (ZETIA) 10 mg tablet Take 10 mg by mouth nightly at bedtime. Active aspirin 81 MG EC tablet Take 81 mg by mouth daily. Active meloxicam (MOBIC) 15 MG tablet Take 15 mg by mouth daily. Active tamsulosin (FLOMAX) 0.4 mg Cap Take 0.4 mg by mouth daily. Active ondansetron (ZOFRAN) 4 MG tablet Take 4 mg by mouth as needed. Active hyoscyamine (LEVBID) 0.375 mg 12 hr tablet Take 0.375 mg by mouth every 12 (twelve) hours as needed for cramping (specific location in comments). Active clonazePAM (KLONOPIN) 1 MG tablet Take 1 mg by mouth daily as needed for anxiety. Active QUEtiapine (SEROQUEL) 50 MG tablet Take 50 mg by mouth 2 (two) times a day. Active OXcarbazepine (TRILEPTAL) 600 MG tablet Take 600 mg by mouth 2 (two) times a day. Active traMADoL (ULTRAM) 50 mg tablet Take 50 mg by mouth every 6 (six) hours as needed for pain (specific location in comments). Active diphenhydrAMINE (BENADRYL) 25 mg capsule Take 25 mg by mouth every 6 (six) hours as needed for itching or allergies. Active acetaminophen (TYLENOL) 325 mg tablet Take 650 mg by mouth every 6 (six) hours as needed for mild pain. Active oxyCODONE 5 MG immediate release tablet Take 1 tablet (5 mg total) by mouth every 4 (four) hours as needed for moderate pain. Partial fill ok 10 tablet 05/24/2021 Active prochlorperazin e (COMPAZINE) 5 MG tablet Take 1 tablet (5 mg total) by mouth every 6 (six) hours as needed for nausea. 8 tablet 05/24/2021 Active omeprazole (PRILOSEC) 40 MG capsule Take 1 capsule (40 mg total) by mouth daily. 30 capsule 05/24/2021 Active Active Problems Problem Noted Date Diagnosed Date Hiatal hernia with GERD 05/23/2021 Immunizations Immunization Administration Dates Next Due COVID-19 (Pre-11/30) Pfizer Vaccine, mRNA, PF 01/23/2021 INFLUENZA, SPLIT VIRUS, TRIV ALENT W/ PRESERVATIVE IM 11/20/2020,11/10/2013,10/19/2012 Influenza Quadrivalent MDCK Preservative Free IM 10/31/2019,11/11/2017,11/21/2016 Influenza Quadrivalent Preservative Free IM 11/09,11/30/2015 Tdap 01/16/2021 Social History Tobacco Use Types Packs/Day Years Used Date Smoking Tobacco: Former Cigarettes 1 45 0 10/07/1974 - 04/09/2015 Smokeless Tobacco: Former Comments:light smoker I stop ped in 2015 after Heart Attack and Heart surgery Alcohol Use Standard Drinks/Week Comments Not Currently 0 (1 standard drink = 0.6 oz pure alcohol) Alcoholism. Stopped in 1999 and an AA member ever since. Education Answer Date Recorded Are you interested in more education? Not on mario e 06/06/2022 Are you concerned about learning? Not on file 06/06/2022 No 06/06/2022 No 06/06/2022 Digital Access Answer Date Recorded No 07/03/2022 No 07/03/2022 No 07/03/2022 Reliable internet access at home? Not on file 07/03/2022 Device with a working camera? Not on file Sex and Gender Information Value Date Recorded Sex Assigned at Male 09/03/2020 8:51 AM EDT Legal Sex Male 8:35 AM EDT Gender Identity Male 09/03/2020 8:51 AM EDT Sexual Orientation Straight 09/03/2020 8: 51 AM EDT Last Filed Vital Signs Vital Sign Reading Time Taken Comments Blood Pressure 128/66 05/24/2021 7:27 AM EDT Pulse 95 05/23/2021 5:00 PM EDT Temperature 36.9 C (98.4 F) 05/24/2021 7:27 AM EDT Respiratory Rate 16 05/24/2021 7:27 AM EDT Oxygen Saturation 98% 05/24/2021 7:27 AM EDT Inhaled Oxygen Concentration - - Weight 93 kg (205 lb) 03/17/2022 3:35 PM EST Height 177.8 cm (5' 10 ) 03/17/2022 3:35 PM EST Body Mass Index 29.41 03/17/2022 3:35 PM EST Plan of Treatment Health Maintenance Due Date Last Done Comments LIPID PANEL 1955 DEPRESSION SCREENING 1967 SMOKING Hx and SMOKELESS TOBACCO SCREENING 11/23/1968 HEPATITIS C SCREENING 11/23/1973 COLOGUARD 11/23/2000 COLONOSCOPY 11/23/2000 COLORECTAL CANCER SCREENING 11/23/2000 FIT TEST 11/23/2000 FOBT 11/23/2000 SIGMOIDOSCOPY 11/23/2000 VIRTUAL COLONOSCOPY 11/23/2000 ZOSTER VACCINES (1 of 2) 11/23/2005 ABDOMINAL AORTIC ANEURYSM (AAA) SCREENING 11/23/2020 SCREENING FOR DIABETES 05/23/2024 05/23/2021 INFLUENZA VACCINE (#1) 2024 , 11/20/2020, 10/31/2019, Additional history exists COVID-19 VACCINE ( - season) 2024 01/23/2021, 04/27/2020, 04/27/2020, Additional history exists RSV VACCINE (1 - 1-dose 75+ series) 11/23/2030 Adult Td,Tdap Booster 01/16/2031 01/16/2021, 001 PNEUMOCOCCAL VACCINES (50+ years) Completed 08/25/2021, 05/11/2013 HEPATITIS A VACCINES Aged Out No long er eligible based on patient's age to complete this topic HIB VACCINES Aged Out No longer eligi ble based on patient's age to complete this topic MENINGOCOCCAL VACCINES (ACWY) Aged Out No longer eligible based on patient's age to complete this topic MENINGOCOCCAL VACCINES (B) Aged Out N o longer eligible based on patient's age to complete this topic Medical Devices Implanted Type Area Poly Area Supervisor Device Identifier Shelf Expiration Date Model / Serial / Lot Rods-03/25/2016 Implanted:03/11 (Quantity not on file) Spine Lumbar Description:Titanium Pin-05/23/2016 Implanted:05/09 (Quantity not on file) Left: Spine Cervical Insurance PPO [employer] MEDICARE A S MEDICARE A S MEDICARE A [facility] MEDICARE A S Member Subscriber Plan / Payer (Ef fective 2018-Present) Name:Butch Renae Relation to Subscriber:Spouse Name:JIMMIEBOWENZANDRA Date of :1961 (Home) Address: [address] [place] [address] Payer ID:Not on file Type:PPO Address: [address] [id number] MEDICARE A S MEDICARE A S MEDICARE A S MEDICARE A Member Subscriber Plan / Payer (Ef fective 2019-Present) Name:Butch Renae Member ID:[id number] Relation to Subscriber:Self Name:Butch Renae Subscriber ID:[id number] Payer ID:[id number] Group ID:Not on file Type:Medicare Address: [place] [address] [id number] O [facility] MEDICARE A Advance Directives For more information, please contact: [phone] (9AM - 5PM Tasha/[facility], Wednesday-Wednesday) * Full Code (Latest Code Status on File) Date Activated Date Inactivated Comments 05/23/2021 1:49 PM Question Answer Comments Code Status Confirmed With: Patient Care Teams Conveyor System Dispatcher Relationship Specialty Start Date End Date Álvaro Noble MD [address] [place] [phone] PCP - General Family Medicine 09/03/20 Young Ramos MD [address] [place] [address] [email or web address] Gastroenterology 12/31/20 Rodolfo Milan MD [address] [place] [phone] Cardiology 05/12/21 Additional Source Comments The information contained in this document represents components of the legal health record. It is not the complete legal health record.[facility]
--- OUTSIDE RECORDS SUMMARY | 2024-10-14 13:37 | XMS_ITS | Clinical Summary ---
Author Organization [facility] Address [address] [address] Care Team Providers Care Entry Level Project Engineer Name Role Phone Unavailable Primary Care Provider [...] patient's age to complete this topic Insurance [facility]
[2024-10-14] MEDS: iohexoL 350 MG/ML 100 ML INFUS..BTL IV (14:02)
--- NOTE | 2024-10-14 16:09 | P.HPHOSP_ITS ---
History of Present Illness Date of Service: 10/14/24 Attending physician on admission: Hannah Haddad Chief Complaint: fever This is a 68-year-old male with a history of coronary artery disease who presents to the emergency department with fever. Patient was seen in the urology office yesterday for left stent removal and was feeling ok at that time. This morning when he woke up he was not feeling well, had a fever and called the urologist who recommended he come to the emergency department. On arrival to the emergency department he had a fever up to 102.8, was tachycardic with a heart rate up to 135, tachypneic with a respiratory rate of 21 and also noted to be hypoxic with an oxygen saturation of 88% on room air. Lab work significant for leukocytosis of 15.7, urinalysis consistent with UTI. CT scan of the abdomen and pelvis was unremarkable, chest CT shows patchy ground-glass opacities within the right upper lobe and right lower lobe suggestive of inflammatory process such as aspiration pneumonitis. He denies shortness of breath, cough. He has no abdominal pain, he had 1 episode this morning of dysuria associated with blood in his urine. In the ED he was treated with IV ceftriaxone in the decision was made to admit him to the hospital for further management. Of note patient states that he has had history of aspiration pneumonia in the past, has had normal modified barium studies. He denies choking or coughing with eating or difficulty swallowing. Review of Systems 2 Review of Systems: Yes all other systems are reviewed and are negative Constitutional: Constitutional: Denies chills and Reports fever(s) Cardiovascular: Cardiovascular: Denies chest pain, Denies palpitations and Denies dyspnea Respiratory: Respiratory: Denies cough and Denies dyspnea Endocrine: Endocrine: Denies palpitations [facility] Medical History Elevated cholesterol Skin cancer H/O supraventricular tachycardia Back pain Hyponatremia Synovial cyst Bipolar disorder Larson esophagus GERD (gastroesophageal reflux disease) Other obstructive and reflux uropathy Benign prostatic hyperplasia with lower urinary tract symptoms Hypogonadism in male Former smoker Anxiety Depression Kidney stones Hiatal hernia Sleep apnea Myocardial infarct CAD (coronary artery disease) Surgical History S/P insertion of spinal cord stimulator Hx of tonsillectomy History of esophagogastroduodenoscopy (EGD) H/O colonoscopy H/O hernia repair H/O gastric bypass History of coronary artery bypass surgery History of lithotripsy History of spinal fusion History of cholecystectomy History of appendectomy Social History Are you a primary health care assistant to a significant other at home: No Do you presently have visiting nurse or other home services: No Alcohol intake: former Patient Tobacco Use Status: Former Tobacco user Smoked in Last 30 Days: No Use of substances other than those prescribed or required for medical reasons: No Advance Directives: No Advance Directives Information Provided: Yes Meds Allergies Allergy/AdvReac Type Severity Reaction Status Date / Time clindamycin Allergy Intermediate Gastrointestinal Verified 10/14/24 12:34 Upset latex (LATEX) Allergy Intermediate RASH Verified 10/14/24 12:34 Penicillins (PENICILLINS) Allergy Intermediate RASH/HIVES Verified 10/14/24 12:34 Sulfa (Sulfonamide Allergy Intermediate HIVES, Verified 10/14/24 12:34 Antibiotics) hospitalized, (SULFA(SULFONAMIDE edema ANTIBIOTICS)) codeine (CODEINE) AdvReac Intermediate NAUSEA Verified 10/14/24 12:34 Home Medications ?Medication ?Instructions ?Recorded ?Confirmed ?Last Taken ?Type aspirin 81 mg tablet 81 mg PO Q OTHER DAY 0 10/14/24 10/14/24 09:00 History clonazepam 1 mg tablet 1 tab PO BEDTIME PRN Sleep 1 10/14/24 10/14/24 09:00 History ezetimibe 10 mg tablet (Zetia) 10 mg PO DAILY 11/16/19 10/14/24 10/14/24 09:00 History rosuvastatin 5 mg tablet 5 mg PO 3XW 11/16/19 5 10/14/24 09:00 History carvedilol 6.25 mg tablet 1 tab PO BID 11/17/1910/14/24 09:00 History esomeprazole magnesium 40 mg 40 mg PO DAILY 11/09/22 0 10/14/24 10/14/24 09:00 History capsule,delayed release acetaminophen 325 mg tablet 650 mg PO Q6H PRN Pain 08/0210/14/24 10/14/24 09:00 History dextroamphetamine-amphetamine 5 mg 1 tab PO DAILY 08/0210/14/24 10/14/24 09:00 History tablet quetiapine 200 mg tablet 200 mg PO BID 10/14/2410/1410/14/24 09:00 History Physical Exam 2 Vital Signs and Narrative: Vital Signs: Last Vital Signs Temp 98.5 F 10/14/24 16:05 Pulse 97 10/14/24 16:05 Resp 20 10/14/24 16:05 BP 113/64 10/14/24 16:05 Pulse Ox 97 10/14/24 16:05 O2 Del Method Nasal Cannula 10/14/24 16:05 O2 Flow Rate 2 10/14/24 16:05 BMI result Body Mass Index 27.8 Const: General: cooperative, comfortable, no acute distress, alert and awake Nutritional Appearance: average body habitus Orientation/consciousness: p atient oriented x3 Resp: Effort & Inspection: normal respiratory effort, able to speak in complete sentences, no respiratory distress and no use of accessory muscles A uscultation: clear to auscultation bilaterally Cardio: Rate: regular rate GI: Inspection: No distended Palpation (GI): Soft to palpation Neuro: General: patient oriented x3, moves all extremities and CN's II-XI intact bilaterally Extrem: General: No pedal edema Results Labs 10/14/24 12:55 10/14/24 12:55 Labs: Laboratory Results - last 24 hr 10/14/24 10/14/24 12:55 13:00 MCV 86.2 MCH 29.1 MCHC 33.8 RDW 14.2 Plt Count 239 MPV 9.2 L Immature Gran % (Auto) 0.6 H Neut % (Auto) 86.1 H Lymph % (Auto) 6.7 L [place] % (Auto) 6.0 Eos % (Auto) 0.3 Baso % (Auto) 0.3 Lymph # (Auto) 1.1 L [place] # (Auto) 1.0 Eos # (Auto) 0.1 Baso # (Auto) 0.1 Abs Immat Gran (auto) 0.09 H Absolute Neuts (auto) 13.6 H Absolute Nucleated RBC 0.000 Nucleated RBC % (auto) 0.0 Anion Gap 14 Estim Creat Clear Calc 65.2 Estimated GFR 60 Random Glucose 118 H Lactic Acid 1.7 Calcium 8.9 Magnesium 1.6 Total Bilirubin 0.6 AST 26 ALT 17 Alkaline Phosphatase 68 Total Protein 6.8 Albumin 4.0 Lipase 27 Urine Color Yellow Urine Appearance Cloudy Urine pH >= 9.0 Ur Specific [place] 1.015 Urine Protein Trace Urine Glucose (UA) Negative Urine Ketones Negative Urine Blood Large (3+) H Urine Nitrite Negative Ur Leukocyte Esterase Moderate (2+) H Urine RBC >20 H Urine WBC >50 H Ur Squamous Epith Cells 0-2 Urine Bacteria 4+ Hyaline Casts 0-2 COVID-19 (SHASHI) Negative COVID-19 Clin Com See Note Influenza Type A (MISA) Negative Influenza Type B (MISA) Negative Influenza A & B Note See Note Assessment and Plan (1) Pneumonia: Qualifiers: Laterality: bilateral Lung location: unspecified part of lung P neumonia type: due to unspecified organism Qualified Code(s): J18.9 - Pneumonia, unspecified organism Status: Acute (2) Hypoxia: Status: Acute Plan This is a 68-year-old male with a history of coronary artery disease status post CABG, 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, mood disorder, recurrent kidney stones, left ureteral stent removal on October 13 who presents to the emergency department with fever found to have UTI and pneumonia Sepsis due to UTI and probable aspiration pneumonia Meets sepsis criteria with fever, tachycardia, tachypnea, leukocytosis No severe features, lactic acid normal, blood pressure stable Received 30 cc/kg bolus in the emergency department Will continue IV antibiotics with ceftriaxone and Flagyl (PCN and sulfa allergies) Follow urine and blood cultures Acute hypoxic respiratory failure due to probable aspiration pneumonia previous h/o aspiration pna, but MBSS reportedly normal IV abx as above wean oxygen as tolerated CAD no chest pain continue carvedilol, asa mood continue seroquel DVT ppx - lovenox Code status - full code Patient will likely require 2 midnight stay in the hospital for management of sepsis, UTI, pneumonia requiring IV antibiotics and close monitoring Quality Stroke Does the patient have a stroke diagnosis?: No VTE Prior VTE?: No VTE Risk Level:: Medical - moderate - high VTE Device Contraindication: N/A - Device Ordered VTE Drug Contraindication: N/A - Med Ordered
[2024-10-14] MEDS: metroNIDAZOLE/NS 500 MG/100 ML PIGGYBACK 100 MG IV ×2 (17:03→23:26)
--- NOTE | 2024-10-14 17:21 | PHA.MEDREC ---
Pharmacy Consult ? Medication Reconciliation Pharmacy has completed the medication reconciliation. Spoke with patient at bedside, he was able to verbally confirm his meds.
--- NOTE | 2024-10-14 18:17 | PC.NURSE ---
Report given to Tony HENRY. Patient will transition to overflow.
[2024-10-15] MEDS: 0.9 % Sodium Chloride Flush 3 ML SYRINGE IVFLUSH ×3 (00:31→14:06)
--- NOTE | 2024-10-15 02:30 | PC.NURSE ---
Patient admitted for fever and UTI . Being treated with antibiotics. Denies pain at this time. Patient resting comfortably.
[2024-10-15 04:17] LABS: MANUAL DIFF FLAG NO
[2024-10-15 04:18] LABS: Hematocrit 44.0 % (42.0-52.0); Hemoglobin 14.4 g/dl (14.0-18.0); Imm Gran Abs Auto 0.06 X10*3/uL (0.00-0.03); Imm Gran Pct Auto 0.4 % (0.0-0.4); Lymphocytes Absolute Auto 1.2 X10*3/uL (1.2-4.9); Mean Corpuscular HGB Conc 32.7 g/dl (31.0-36.0); Mean Corpuscular Hemoglobin 28.8 pg (27.0-33.0); Mean Corpuscular Volume 88.0 fL (80.0-98.0); NRBC Abs Auto 0.000 X10*3/uL (0.0-0.012); NRBC Pct Auto 0.0 /100WBC (0.0-0.2); Platelet Count 207 X10*3/uL (160-400); Red Blood Count 5.00 X10*6/uL (4.60-5.80); White Blood Count 13.9 X10*3/uL (4.8-10.8)
[2024-10-15 04:36] LABS: Alanine Aminotransferase 12 U/L (0-40); Albumin Level 3.2 g/dL (3.5-5.0); Alkaline Phosphatase 57 U/L (39-117); Anion Gap 12 (12-20); Aspartate Amino Transferase 21 U/L (5-37); Blood Urea Nitrogen 11 mg/dL (9-16); Calcium 8.4 mg/dL (8.4-10.2); Carbon Dioxide 27 mmol/L (22-29); Chloride 105 mmol/L (96-108); Creatinine Clr Calc Pharmacy 66.9; Estimated Glomerular Filt Rate > 60; Potassium 4.6 mmol/L (3.3-5.1); Sodium 139 mmol/L (135-145); Total Protein 5.6 g/dL (6.5-8.0)
[2024-10-15] MEDS: metroNIDAZOLE/NS 500 MG/100 ML PIGGYBACK 100 MG IV ×3 (04:59→17:48)
[2024-10-15 06:07] VITALS: BP 115/68; PULSE 97; RESP 16; TEMP 36.3; O2SAT 95
--- NOTE | 2024-10-15 07:54 | HO.PM.IMPN ---
Subjective Subjective Date of Service: 10/15/24 Interval History: Patient reports nausea with the antibiotics Reports relief with Zofran Review of Systems Review of Systems: Yes all other systems are reviewed and are negative Physical Exam Exam: Exam: General: AOx3, no acute distress Resp: CTA bilaterally CVS: S1, S2, RRR GI: +BS, NT, no distention Skin: Warm, dry Extremities: No edema Psych: Appropriate affect Vital Signs: Vital Signs: Last Vital Signs Temp 97.4 F 10/15/24 06:07 Pulse 97 10/15/24 06:07 Resp 16 10/15/24 06:07 BP 115/68 10/15/24 06:07 Pulse Ox 95 10/15/24 06:07 O2 Del Method Room Air 10/15/24 06:07 O2 Flow Rate 2 10/14/24 18:00 BMI result Body Mass Index 27.8 Objective Data Active Medications Acetaminophen (Acetaminophen 325 Mg Tablet) 650 mg PO Q6H PRN PRN Reason: Pain, Mild 1-3,fever,headache Last Admin: 10/14/24 21:15 Dose: 650 mg Documented By: GALINA Allopurinol (Allopurinol 100 Mg Tablet) 100 mg PO DAILY [facility] Aspirin (Aspirin 81 Mg Tab.Chew) 81 mg PO Q2D [facility] Calcium Carbonate (Calcium Carbonate 750 Mg Tab.Chew) 750 mg PO Q4H PRN PRN Reason: Heartburn Last Admin: 10/14/24 21:15 Dose: 750 mg Documented By: GALINA Carvedilol (Carvedilol 6.25 Mg Tablet) 6.25 mg PO BID [facility]; Protocol Last Admin: 10/14/24 21:10 Dose: 6.25 mg Documented By: GALINA Ceftriaxone Sodium (Ceftriaxone Sodium 1 Gm Vial) 1 gm IVPUSH Q24H [facility] Clonazepam (Clonazepam 1 Mg Tablet) 1 mg PO BEDTIME PRN PRN Reason: Sleep Ezetimibe (Ezetimibe 10 Mg Tablet) 10 mg PO DAILY [facility] Enoxaparin Sodium (Enoxaparin Sodium 40 Mg/0.4 Ml Syringe) 40 mg SUBCUT Q24H [facility] Last Admin: 10/14/24 17:04 Dose: 40 mg Documented By: LUPE Metronidazole (Flagyl) 500 mg in 100 mls @ 100 mls/hr IV Q6H [facility] Last Infusion: 10/15/24 06:06 Dose: Infused Documented By: GALINA Magnesium Hydroxide (Milk Of Magnesia 30 Ml Oral.Susp) 30 ml PO DAILY PRN PRN Reason: Constipation Melatonin (Melatonin 3 Mg Tablet) 6 mg PO BEDTIME PRN PRN Reason: Insomnia Non-Formulary Medication (Potassium Citrate) 20 meq PO BID [facility] Omeprazole (Omeprazole 20 Mg Capsule.Dr) 20 mg PO DAILY@0630 [facility] Last Admin: 10/15/24 05:41 Dose: 20 mg Documented By: GALINA Ondansetron HCl (Ondansetron Hcl 4 Mg/2 Ml Vial) 4 mg IVPUSH Q8H PRN PRN Reason: Nausea and Vomiting Pyridoxine HCl (Pyridoxine Hcl (Vitamin B6) 50 Mg Tablet) 50 mg PO DAILY [facility] Quetiapine Fumarate (Quetiapine Fumarate 200 Mg Tablet) 200 mg PO BID [facility] Last Admin: 10/14/24 21:10 Dose: 200 mg Documented By: GALINA Sodium Chloride (0.9 % Sodium Chloride Flush 3 Ml Syringe) 3 ml IVFLUSH QSHIFT [facility] Last Admin: 10/15/24 00:31 Dose: 3 ml Documented By: GALINA Tramadol HCl (Tramadol Hcl 50 Mg Tablet) 50 mg PO Q6H PRN PRN Reason: pain (scale score 1-3) Last Admin: 10/14/24 18:45 Dose: 50 mg Documented By: RANDFAA Labs 10/15/24 03:49 10/15/24 03:49 Labs: Laboratory Results - last 24 hr 10/14/24 10/14/24 10/15/24 12:55 13:00 03:49 MCV 86.2 88.0 MCH 29.1 28.8 MCHC 33.8 32.7 RDW 14.2 14.4 Plt Count 239 207 MPV 9.2 L 9.4 Immature Gran % (Auto) 0.6 H 0.4 Neut % (Auto) 86.1 H 83.9 H Lymph % (Auto) 6.7 L 8.4 L Sandoval % (Auto) 6.0 6.6 Eos % (Auto) 0.3 0.3 Baso % (Auto) 0.3 0.4 Lymph # (Auto) 1.1 L 1.2 Sandoval # (Auto) 1.0 0.9 Eos # (Auto) 0.1 0.0 Baso # (Auto) 0.1 0.1 Abs Immat Gran (auto) 0.09 H 0.06 H Absolute Neuts (auto) 13.6 H 11.7 H Absolute Nucleated RBC 0.000 0.000 Nucleated RBC % (auto) 0.0 0.0 Anion Gap 14 12 Estim Creat Clear Calc 65.2 66.9 Estimated GFR 60 > 60 Random Glucose 118 H 106 Lactic Acid 1.7 Calcium 8.9 8.4 Magnesium 1.6 Total Bilirubin 0.6 0.8 AST 26 21 ALT 17 12 Alkaline Phosphatase 68 57 Total Protein 6.8 5.6 L Albumin 4.0 3.2 L Lipase 27 Urine Color Yellow Urine Appearance Cloudy Urine pH >= 9.0 Ur Specific Jackman 1.015 Urine Protein Trace Urine Glucose (UA) Negative Urine Ketones Negative Urine Blood Large (3+) H Urine Nitrite Negative Ur Leukocyte Esterase Moderate (2+) H Urine RBC >20 H Urine WBC >50 H Ur Squamous Epith Cells 0-2 Urine Bacteria 4+ Hyaline Casts 0-2 COVID-19 (SHASHI) Negative COVID-19 Clin Com See Note Influenza Type A (MISA) Negative Influenza Type B (MISA) Negative Influenza A & B Note See Note 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, mood disorder, recurrent kidney stones, left ureteral stent removal on October 13 who presented to the ED with fever and was noted to have sepsis secondary to UTI and possible pneumonia Sepsis secondary to UTI and possible pneumonia Recurrent nephrolithiasis Hemodynamically stable We will continue ceftriaxone and metronidazole (he reports allergy to penicillins and sulfa) We will follow sepsis workup He does have some mild nausea secondary to antibiotics CAD s/p CABG We will continue home meds Hemodynamically stable Tele Acute on chronic hypoxic respiratory failure secondary to chronic aspiration Patient reports he underwent MBSS to evaluate his chronic aspiration He reports he is able to eat but has to be very mindful We will advance slowly-clear liquids and if he has any difficulty-we will order speech eval Patient has been requested to sign a records release so that we can get the records from prior hospital Patient is new to the system and hence we do not have many records but he reports he has had multiple procedures and has significant history and hence we will request him to sign a records release and we will request the caser up/unit nurse to help with retrieving those records and getting them faxed DVT prophylaxis with Lovenox This note is constructed using voice recognition software. While every effort has been made to ensure accuracy, cad manager errors may have been included. Quality Stroke Does the patient have a stroke diagnosis?: No VTE Prior VTE?: No VTE Risk Level:: Medical - moderate - high VTE Device Contraindication: N/A - Device Ordered VTE Drug Contraindication: N/A - Med Ordered
[2024-10-15 08:26] VITALS: BP 124/64; PULSE 81
[2024-10-15 08:32] VITALS: BP 124/69; PULSE 79; RESP 16; TEMP 37.5; O2SAT 93
[2024-10-15 14:17] VITALS: BP 109/63; PULSE 86; RESP 16; TEMP 37.6; O2SAT 95
[2024-10-15 19:56] VITALS: BMI 28.0
[2024-10-15 20:00] VITALS: BP 131/69; PULSE 95; RESP 18; TEMP 36.2; O2SAT 95
[2024-10-15 21:24] VITALS: RESP 16; RESP 18
[2024-10-16] MEDS: metroNIDAZOLE/NS 500 MG/100 ML PIGGYBACK 100 MG IV ×2 (00:18→06:03)
[2024-10-16] MEDS: 0.9 % Sodium Chloride Flush 3 ML SYRINGE IVFLUSH ×2 (00:32→20:16)
[2024-10-16 04:00] VITALS: BP 121/75; PULSE 91; RESP 18; TEMP 36.3; O2SAT 94
[2024-10-16 07:13] LABS: Alanine Aminotransferase 10 U/L (0-40); Albumin Level 3.4 g/dL (3.5-5.0); Alkaline Phosphatase 60 U/L (39-117); Anion Gap 14 (12-20); Aspartate Amino Transferase 19 U/L (5-37); Blood Urea Nitrogen 10 mg/dL (9-16); Calcium 8.6 mg/dL (8.4-10.2); Carbon Dioxide 23 mmol/L (22-29); Chloride 105 mmol/L (96-108); Creatinine Clr Calc Pharmacy 74.7; Estimated Glomerular Filt Rate > 60; Potassium 4.2 mmol/L (3.3-5.1); Sodium 138 mmol/L (135-145); Total Protein 6.0 g/dL (6.5-8.0)
[2024-10-16 07:18] VITALS: BP 119/76; PULSE 91; RESP 18; TEMP 37.9; O2SAT 95
[2024-10-16 07:50] VITALS: TEMP 36.7
--- NOTE | 2024-10-16 08:24 | HO.PM.IMPN ---
Subjective Subjective Date of Service: 10/16/24 Interval History: Follow up UTI, nausea and vomiting no abd pain but still with nausea Review of Systems Review of Systems: Yes all other systems are reviewed and are negative Physical Exam Exam: Exam: Appearing in no acute distress lung sounds are clear to auscultation heart regular rate rhythm, clear S1, S2 positive bowel sounds, abdomen is soft, nontender neuro patient is alert x3, no focal deficits Vital Signs: Vital Signs: Last Vital Signs Temp 98.0 F 10/16/24 07:50 Pulse 91 10/16/24 07:18 Resp 18 10/16/24 07:18 BP 119/76 10/16/24 07:18 Pulse Ox 95 10/16/24 07:18 O2 Del Method Room Air 10/16/24 07:18 O2 Flow Rate 2 10/14/24 18:00 BMI result Body Mass Index 28.0 Objective Data Active Medications Acetaminophen (Acetaminophen 325 Mg Tablet) 650 mg PO Q6H PRN PRN Reason: Pain, Mild 1-3,fever,headache Last Admin: 10/15/24 20:24 Dose: 650 mg Documented By: SANCHO Allopurinol (Allopurinol 100 Mg Tablet) 100 mg PO DAILY [facility] Last Admin: 10/15/24 08:26 Dose: 100 mg Documented By: PAVEL Aspirin (Aspirin 81 Mg Tab.Chew) 81 mg PO Q2D [facility] Calcium Carbonate (Calcium Carbonate 750 Mg Tab.Chew) 750 mg PO Q4H PRN PRN Reason: Heartburn Last Admin: 10/14/24 21:15 Dose: 750 mg Documented By: GALINA Carvedilol (Carvedilol 6.25 Mg Tablet) 6.25 mg PO BID [facility]; Protocol Last Admin: 10/15/24 20:24 Dose: 6.25 mg Documented By: SANCHO Ceftriaxone Sodium (Ceftriaxone Sodium 1 Gm Vial) 1 gm IVPUSH Q24H [facility] Last Admin: 10/15/24 14:06 Dose: 1 gm Documented By: PAVEL Clonazepam (Clonazepam 1 Mg Tablet) 1 mg PO BEDTIME PRN PRN Reason: Sleep Last Admin: 10/15/24 20:24 Dose: 1 mg Documented By: SANCHO Enoxaparin Sodium (Enoxaparin Sodium 40 Mg/0.4 Ml Syringe) 40 mg SUBCUT Q24H [facility] Last Admin: 10/15/24 17:57 Dose: 40 mg Documented By: PVAEL Doxycycline Hyclate 100 mg/ (Sodium Chloride) 250 mls @ 166.67 mls/hr IV Q12H [facility] Magnesium Hydroxide (Milk Of Magnesia 30 Ml Oral.Susp) 30 ml PO DAILY PRN PRN Reason: Constipation Melatonin (Melatonin 3 Mg Tablet) 6 mg PO BEDTIME PRN PRN Reason: Insomnia Omeprazole (Omeprazole 20 Mg Capsule.Dr) 20 mg PO DAILY@0630 [facility] Last Admin: 10/16/24 06:02 Dose: 20 mg Documented By: ROSALIND Ondansetron HCl (Ondansetron Hcl 4 Mg/2 Ml Vial) 4 mg IVPUSH Q8H PRN PRN Reason: Nausea and Vomiting Last Admin: 10/15/24 08:30 Dose: 4 mg Documented By: PAVEL Pyridoxine HCl (Pyridoxine Hcl (Vitamin B6) 50 Mg Tablet) 50 mg PO DAILY [facility] Last Admin: 10/15/24 08:26 Dose: 50 mg Documented By: PAVEL Quetiapine Fumarate (Quetiapine Fumarate 200 Mg Tablet) 200 mg PO BID [facility] Last Admin: 10/15/24 20:24 Dose: 200 mg Documented By: SANCHO Sodium Chloride (0.9 % Sodium Chloride Flush 3 Ml Syringe) 3 ml IVFLUSH QSHIFT [facility] Last Admin: 10/16/24 07:35 Dose: Not Given Documented By: AUGUSTUS Non-Admin Reason: Previously Administered Tramadol HCl (Tramadol Hcl 50 Mg Tablet) 50 mg PO Q6H PRN PRN Reason: pain (scale score 1-3) Last Admin: 10/15/24 17:57 Dose: 50 mg Documented By: PAVEL Labs 10/15/24 03:49 10/16/24 06:26 Labs: Laboratory Results - last 24 hr 10/16/24 06:26 Hold Purple Top SEE NOTE Anion Gap 14 Estim Creat Clear Calc 74.7 Estimated GFR > 60 Random Glucose 104 Calcium 8.6 Total Bilirubin 0.6 AST 19 ALT 10 Alkaline Phosphatase 60 Total Protein 6.0 L Albumin 3.4 L Microbiology Microbiology Results: Microbiology 10/14/24 Unknown Urine Culture - Final Urine clean catch - Clean Catch Midstream Escherichia coli 10/14/24 12:56 Blood Culture - Preliminary Blood - Venous No growth after 24 hours. 10/14/24 12:55 Blood Culture - Preliminary Blood - Venous No growth after 24 hours. 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, mood disorder, recurrent kidney stones, left ureteral stent removal on October 13 who presented to the ED with fever and was noted to have sepsis secondary to UTI and possible pneumonia Sepsis secondary to Ecoli UTI Recurrent nephrolithiasis recent removal of ureteral stent Continue Rocephin Acute hypoxic resp failure secondary to aspiration pneumonitis Hx of chronic aspiration Rocephin and doxycycline, Flagyl causing increase in nausea Oxygen as needed to keep sats >91% Nausea has been on zofran reglan added as well continue PPI CAD s/p CABG on aspirin and BB Mental health Receives outpatient ketamine treatments Continue home medications GERD Continue PPI DVT prophylaxis with Lovenox Quality Stroke Does the patient have a stroke diagnosis?: No VTE Prior VTE?: No VTE Risk Level:: Medical - moderate - high VTE Device Contraindication: N/A - Device Ordered VTE Drug Contraindication: N/A - Med Ordered
[2024-10-16 09:56] VITALS: BP 108/53; PULSE 100; RESP 18; O2SAT 93
[2024-10-16 15:20] VITALS: BP 127/78; PULSE 99; RESP 18; TEMP 37.1; O2SAT 97
--- NOTE | 2024-10-16 16:34 | MHC.CM.PN ---
PT REPORTS HE LIVES WITH HIS AND IS FULLY INDEPENDENT HE HAS NO DME OR SERVICES COPY OF HCP REQUESTED PCP: LOBO PHILLIPS DCP: HOME VIA PRIVATE TRANSPORT
[2024-10-16 20:00] VITALS: BP 110/68; PULSE 100; RESP 18; TEMP 36.6; O2SAT 95
[2024-10-17 03:24] VITALS: BP 112/64; PULSE 80; RESP 18; TEMP 36.3; O2SAT 96
[2024-10-17 07:04] LABS: Alanine Aminotransferase 9 U/L (0-40); Albumin Level 3.3 g/dL (3.5-5.0); Alkaline Phosphatase 57 U/L (39-117); Anion Gap 12 (12-20); Aspartate Amino Transferase 20 U/L (5-37); Blood Urea Nitrogen 10 mg/dL (9-16); Calcium 8.3 mg/dL (8.4-10.2); Carbon Dioxide 25 mmol/L (22-29); Chloride 106 mmol/L (96-108); Creatinine Clr Calc Pharmacy 77.6; Estimated Glomerular Filt Rate > 60; Potassium 4.0 mmol/L (3.3-5.1); Sodium 139 mmol/L (135-145); Total Protein 5.8 g/dL (6.5-8.0)
[2024-10-17 07:32] VITALS: BP 120/79; PULSE 92; RESP 16; TEMP 37; O2SAT 95
--- NOTE | 2024-10-17 08:33 | P.DS_ITS ---
DS: Providers Provider Date of Service: 10/17/24 Date of admission: 10/14/24 16:04 Date of discharge: 10/17/24 Primary care physician: Álvaro Noble MD DS: Diagnosis Discharge Diagnosis (1) Urinary tract infection: Status: Acute DS: Summary Hospital Course Hospital Course: History and physical as per admitting provider. This is a 68-year-old male with a history of coronary artery disease who presents to the emergency department with fever. Patient was seen in the urology office yesterday for left stent removal and was feeling ok at that time. This morning when he woke up he was not feeling well, had a fever and called the urologist who recommended he come to the emergency department. On arrival to the emergency department he had a fever up to 102.8, was tachycardic with a heart rate up to 135, tachypneic with a respiratory rate of 21 and also noted to be hypoxic with an oxygen saturation of 88% on room air. Lab work significant for leukocytosis of 15.7, urinalysis consistent with UTI. CT scan of the abdomen and pelvis was unremarkable, chest CT shows patchy ground-glass opacities within the right upper lobe and right lower lobe suggestive of inflammatory process such as aspiration pneumonitis. He denies shortness of breath, cough. He has no abdominal pain, he had 1 episode this morning of dysuria associated with blood in his urine. In the ED he was treated with IV ceftriaxone in the decision was made to admit him to the hospital for further management. Of note patient states that he has had history of aspiration pneumonia in the past, has had normal modified barium studies. He denies choking or coughing with eating or difficulty swallowing. 68-year-old man treated for sepsis secondary to E coli UTI and acute hypoxic respiratory failure secondary to aspiration pneumonitis. Patient has a history of chronic aspiration with history of hiatal hernia. Treated with IV Rocephin, doxycycline and Flagyl. The Flagyl was seeming to increase his nausea which he has had several episodes over the last couple of months. His oxygen saturation has been above 91% and he has not required any oxygen. Plan will be to send him home with 5 days of oral Levaquin to treat UTI and pneumonia. The patient is in agreement with this. Nausea. Has had several episodes over the last several months. Treated with Zofran with good effect. Continue PPI Coronary artery disease. Continue aspirin and beta-yanely Mental health. Patient received outpatient ketamine treatments. Continue home medications GERD. Continue PPI Time Attestation Discharge Coordination Time (in mins): 45 Quality: Safe Use of Opioids Does Pt have an Active Cancer Diagnosis on the Problem List?: No Quality: Stroke Does the patient have a stroke diagnosis?: No Physical Exam Exam: Exam: Appearing in no acute distress head is normocephalic atraumatic eyes pupils are PERRLA sclera is anicteric mouth throat mucous membranes are intact and moist neck is supple no lymphadenopathy, no JVD noted lung sounds are clear to auscultation heart regular rate rhythm, clear S1, S2 positive bowel sounds, abdomen is soft, nontender neuro patient is alert x3, no focal deficits Vital Signs: Vital Signs: Last Vital Signs Temp 98.6 F 10/17/24 07:32 Pulse 92 10/17/24 07:32 Resp 16 10/17/24 07:32 BP 120/79 10/17/24 07:32 Pulse Ox 95 10/17/24 07:32 O2 Del Method Room Air 10/17/24 07:32 O2 Flow Rate 2 10/14/24 18:00 BMI result Body Mass Index 28.0 DS: Data Data Completed and Pending Labs on day of discharge: Laboratory Results - last 24 hr 10/17/24 10/17/24 05:55 05:56 Hold Purple Top SEE NOTE Sodium 139 Potassium 4.0 Chloride 106 Carbon Dioxide 25 Anion Gap 12 BUN 10 Creatinine 1.02 Estim Creat Clear Calc 77.6 Estimated GFR > 60 Random Glucose 97 Calcium 8.3 L Total Bilirubin 0.5 AST 20 ALT 9 Alkaline Phosphatase 57 Total Protein 5.8 L Albumin 3.3 L Preliminary micro results at discharge 10/14/24 12:56 Blood Culture - Preliminary Blood - Venous No growth after 48 hours. 10/14/24 12:55 Blood Culture - Preliminary Blood - Venous No growth after 48 hours. Discharge Plan Discharge Anticipated Discharge Date/Time: 10/17/24 08:27 Patient Disposition: Home, Self-Care Discharge Diagnosis: E coli UTI Aspiration pneumonia Referrals: Álvaro Noble MD [Primary Care Provider, Internal Medicine] - 1 Week Discharge Medications: New levofloxacin 750 mg Tablet 750 mg PO Q24H Qty: 5 0RF Continued (DME) syringe with needle [BD Luer-Jacoby Syringe] 3 mL 21 gauge x 1 1/2 syringe See Rx Instructions .MEDSUPPLY Qty: 50 0RF Rx Instructions: As directed (DME) Easy Touch FlipLock Needle 18 gauge x 1 needle See Rx Instructions .Route Qty: 50 0RF Rx Instructions: As directed pyridoxine (vitamin B6) 50 mg tablet 50 mg PO DAILY 90 Days Qty: 90 1RF allopurinol 100 mg tablet 100 mg PO DAILY 90 Days Qty: 90 1RF testosterone cypionate 200 mg/mL oil 200 mg IM Q2W Qty: 2 5RF Rx Instructions: inject 1 ml intramuscular twice a month clonazepam 1 mg tablet 1 tab PO BEDTIME PRN (Reason: Sleep) aspirin 81 mg Tablet 81 mg PO Q OTHER DAY ezetimibe [Zetia] 10 mg Tablet 10 mg PO DAILY rosuvastatin 5 mg tablet 5 mg PO 3XW Patient Comments: MWF carvedilol 6.25 mg tablet 1 tab PO BID quetiapine 200 mg tablet 200 mg PO BID dextroamphetamine-amphetamine 5 mg tablet 1 tab PO DAILY acetaminophen 325 mg Tablet 650 mg PO Q6H PRN (Reason: Pain) esomeprazole magnesium 40 mg capsule,delayed release(DR/EC) 40 mg PO DAILY tramadol 50 mg tablet 50 mg PO Q6H PRN (Reason: pain (scale score 1-3)) Qty: 8 0RF potassium citrate 10 mEq (1,080 mg) tablet extended release 20 meq PO BID 90 Days Qty: 360 0RF Discharge Orders: Discharge Order (Routine); Ordered 10/17/24 Ordered By: Jackie Mai Diet: Advance to usual diet Activity on Discharge: As tolerated Stand Alone Forms: Patient Portal Discharge page Print Language: Turkish Care Plan Goals: Complete course of antibiotics Health Concerns: E coli UTI Aspiration pneumonia Plan of Treatment: Follow up with primary care provider as needed Take all medications as prescribed Assessment: See discharge summary
--- NOTE | 2024-10-17 09:01 | MHC.CM.PN ---
Patient is cleared to dc today. He will discharge to home self care. He has arranged for transportation home.
[2024-10-17 09:15] VITALS: BP 124/76; PULSE 101
[2024-10-17 09:58] VITALS: BP 130/53; PULSE 80; RESP 18; TEMP 36.7
== END 2024-10-17 11:28 | disposition home or self-care (01) | DRG 720 ==
LOC: HO.ED 16:16 → HO.EDOVER 16:18 → HO.S3 10-15 19:25
PROVIDERS: Physician Assistant Medical; Student in an Organized Health Care Education/Training Program; Admitting Provider Physician Assistant Medical; Emergency Provider Emergency Medicine; PCP Family Medicine; Visit Provider Nurse Practitioner Acute Care
DX: A41.9 Sepsis, unspecified organism (principal); J96.21 Acute and chronic respiratory failure with hypoxia; J69.0 Pneumonitis due to inhalation of food and vomit; I25.10 Atherosclerotic heart disease of native coronary artery without angina pectoris; K21.9 Gastro-esophageal reflux disease without esophagitis; Z95.1 Presence of aortocoronary bypass graft; B96.20 Unspecified Escherichia coli [E. coli] as the cause of diseases classified elsewhere; N39.0 Urinary tract infection, site not specified; Z87.891 Personal history of nicotine dependence; Z20.822 Contact with and (suspected) exposure to COVID-19; Z41.9 Encounter for procedure for purposes other than remedying health state, unspecified; Z96.82 Presence of neurostimulator; Z79.82 Long term (current) use of aspirin; Z79.899 Other long term (current) drug therapy
CPT/HCPCS: 36415; 71260; 74177; 80053; 81001; 81003; 83605; 83690; 83735; 85025; 87040; 87086; 87088; 87186; 87502; 87635; 99285; J0696; J1271; J1650; J1836; J2405; Q9967

== ENCOUNTER → 2024-10-14 13:00 | Outpatient (BNV) | payer OTHER, SELFPAY | PROVIDERS: Emergency Provider Emergency Medicine; PCP Family Medicine; Visit Provider Radiology Diagnostic Radiology | DX: K44.9 Diaphragmatic hernia without obstruction or gangrene (principal); J84.9 Interstitial pulmonary disease, unspecified | CPT/HCPCS: 71260; 74177 ==

== ENCOUNTER → 2024-10-14 16:04 | Outpatient (BNV) | payer OTHER, SELFPAY | PROVIDERS: Admitting Provider Physician Assistant Medical; Emergency Provider Emergency Medicine; PCP Family Medicine; Visit Provider Physician Assistant Medical | DX: N39.0 Urinary tract infection, site not specified (principal) | CPT/HCPCS: 99223; 99232; 99239 ==

== ENCOUNTER 2025-01-08 11:54 | Outpatient (REF) | payer OTHER, SELFPAY ==
--- NOTE | ~2025-01-08 | US_ITS ---
EXAMINATION: US RETROPERITONEAL LIMITED (RENAL ONLY) CLINICAL INFORMATION: N 20.0. Calculus of kidney.. COMPARISON: July 19, 2024. TECHNIQUE: Real-time ultrasound kidneys using grayscale technique. FINDINGS: RIGHT KIDNEY: 10 x 5 x 5 cm (SAG x AP x TRV). Normal echotexture. Renal cortical thinning. No hydronephrosis. Multiple hyperechoic foci, largest measures 6 mm in the lower pole. No gross solid or cystic lesion. LEFT KIDNEY: 12 x 5 x 5 cm (SAG x AP x TRV). Normal echotexture. Renal cortical thinning. No hydronephrosis. Multifocal less than 6 mm hyperechoic foci. No gross solid or cystic lesion. US/US renal BI IMPRESSION: Bilateral nonobstructing nephrolithiasis.. Electronically signed by: Fredi Felder MD 01/08/2025 01:28 PM [facility]
[2025-01-08 14:41] LABS: Prostate Specific Antigen 4.25 ng/mL (<0.05-4.0)
--- OUTSIDE RECORDS SUMMARY | 2025-01-08 15:44 | XMS_ITS | Encounter Summary ---
Author Organization [facility] Address [address] [facility] [address] [place] [phone] Phone Care Team Providers Care Toy Designer Name Role Phone Álvaro Noble MD Primary Care Provider + Young Ramos MD Unavailable [phone] Rodolfo Milan MD Unavailable [phone] Encounter Details Date Type Department Care Team (Late st Contact Info) Description 05/23/2021 Procedure Pass [facility] [address] [place] [id number] Social History Tobacco Use Types Packs/Day Years [...] on filedocumented in this encounter Care Teams Toy Designer Relationship Specialty Start Date End Date Álvaro Noble MD [address] [place] [id number] PCP - General Family Medicine 09/03/20 Young Ramos MD [address] [place], [place] [address] [address] [email or web address] Gastroenterology 12/31/20 Rodolfo Milan MD [address] [place] [address] [place] [address] Cardiology 05/12/21 documented as of this encounter Additional Source Comments The information contained in this document represents components of the legal health record. It is not the complete legal health record.[facility]
--- OUTSIDE RECORDS SUMMARY | 2025-01-08 15:44 | XMS_ITS | Clinical Summary ---
Author Organization [facility] Address [address] [address] Care Team Providers Care Laborer [employer]let [employer] Name Role Phone Unavailable Primary Care Provider [...] patient's age to complete this topic Insurance [facility]
--- OUTSIDE RECORDS SUMMARY | 2025-01-08 15:44 | XMS_ITS | Clinical Summary ---
Author Organization [facility] Address [address] [facility] [address] [place] [address] Phone Care Team Providers Care Supervisor Screen Printing Name Role Phone Álvaro Noble MD Primary Care Provider + Young Ramos MD Unavailable [phone] Rodolfo Milan MD Unavailable Allergies Active [...] this topic Medical Devices Implanted Type Area Requirements Manager Device Identifier Shelf Expiration Date Model / Serial / Lot Rods-03/25/2016 Implanted:03/11 (Quantity not on file) Spine Lumbar Description:Titanium Pin-05/23/2016 Implanted:05/09 (Quantity not on file) Left: Spine Cervical Insurance PPO [employer] MEDICARE A S MEDICARE A S MEDICARE A O [facility] MEDICARE A S Member Subscriber Plan / Payer (Ef fective 2018-Present) Name:Butch Renae Relation to Subscriber:Spouse Name:JIMMIEBOWENZANDRA Date of :1961 (Home) Address: [address] [place] [address] Payer ID:Not on file Type:PPO Address: [address] [id number] MEDICARE A S MEDICARE A S MEDICARE A S MEDICARE A Member Subscriber Plan / Payer (Ef fective 2019-Present) Name:Butch Renae Member ID:[id number] Relation to Subscriber:Self Name:Butch Renae Subscriber ID:[id number] Payer ID:[id number] Group ID:Not on file Type:Medicare Address: [place] [address] [address] O [facility] MEDICARE A Advance Directives For more information, please contact: [phone] (9AM - 5PM Tasha/[facility], Wednesday-Wednesday) * Full Code (Latest Code Status on File) Date Activated Date Inactivated Comments 05/23/2021 1:49 PM Question Answer Comments Code Status Confirmed With: Patient Care Teams Supervisor Screen Printing Relationship Specialty Start Date End Date Álvaro Noble MD [address] [place] [phone] PCP - General Family Medicine 09/03/20 Young Ramos MD [address] [place] [id number] [email or web address] Gastroenterology 12/31/20 Rodolfo Milan MD [address] [place] [address] [place] [address] Cardiology 05/12/21 Additional Source Comments The information contained in this document represents components of the legal health record. It is not the complete legal health record.[facility]
== END 2025-01-08 11:55 | disposition home or self-care (01) ==
LOC: HO.US 11:54
PROVIDERS: PCP Family Medicine; Visit Provider Urology
DX: Z12.5 Encounter for screening for malignant neoplasm of prostate (principal); N20.0 Calculus of kidney; E29.1 Testicular hypofunction
CPT/HCPCS: 36415; 76775; 84153

== ENCOUNTER → 2025-01-08 11:56 | Outpatient (BNV) | payer OTHER, SELFPAY | PROVIDERS: PCP Family Medicine; Visit Provider Radiology Diagnostic Radiology | DX: N20.0 Calculus of kidney (principal) | CPT/HCPCS: 76775 ==

== ENCOUNTER 2025-01-17 08:16 | Outpatient (AMB) | payer OTHER, SELFPAY ==
--- NOTE | 2025-01-17 08:18 | A.OFFVIS_ITS ---
Intake Visit Reasons: 3M Ultrasound/PSA(set) Intake Note: Reason for Visit: Ultrasound/PSA Results Urology Meds: Allopurinol, Vitamin B6, Testosterone, Potassium Blood Thinners: Aspirin Labs: Last PSA: 3.25 (07/08/2022) Imaging: Abdomen/Pelvis CT(10/14/2024) Last PVR: 36ml Patient is no longer on Potassium states he has severe heart issues and is worried medication will cause bad effects Patient also reports he would like to discuss his last surgery states he had a bad UTI infection after and was hospitalized and then after had pneumonia Engineer Steam Required: No Accompanied by: Self / Same As Patient Allergies clindamycin Allergy (Intermediate, Verified 01/17/25 08:22) Gastrointestinal Upset latex (LATEX) Allergy (Intermediate, Verified 01/17/25 08:22) RASH Penicillins (PENICILLINS) Allergy (Intermediate, Verified 01/17/25 08:22) RASH/HIVES Sulfa (Sulfonamide Antibiotics) (SULFA(SULFONAMIDE ANTIBIOTICS)) Allergy (Intermediate, Verified 01/17/25 08:22) HIVES, hospitalized, edema codeine (CODEINE) Adverse Reaction (Intermediate, Verified 01/17/25 08:22) NAUSEA HPI Comments Details: Butch is a pleasant male. He is a patient of Dr Soto. He has have the following urologic issues - nephrolithiasis - lower urinary tract symptoms - hypogonadism - Dr. Dewey assistant director of nursing for low-sodium on fluid restriction Telemedicine Evaluation 15 min Consultation [employer] Betty Video Three-month follow-up CT imaging and ultrasound shows small stones bilateral however stone burden in the significantly reduced compared to May He has concerns with potassium citrate and Cardiac interactions I stressed to him that the formulation for potassium citrate used in kidney stones as a slow release and there has been no data proving that does not increase and hyperkalemia in the setting. Use of standard potassium chloride tablets or dissolving potassium citrate powder has been associated with hyperkalemia. Refill potassium citrate, vitamin B6 and allopurinol Six-month follow-up imaging and Uro risk Hypogonadism Testosterone replacement ongoing Labs 05/29 T 569, PSA 2.6, 11/28 T1500 4.3, 07/30 T 390 2.2, 06/30 860, 11/01 T 1200 PSA 5.6 Did have elevation August 2020 with UTI - PSA 27 Injection Day - Lab Day Wed Current therapy testosterone injections administers injection every 2 weeks Nephrolithiasis Longstanding Multiple prior procedures Imaging - 07/31 right 7 mm stones, left 3 mm stone - 01/30 renal ultrasound bilateral 3 mm stones - 08/01 renal ultrasound bilateral stones 6 mm right, left 3 mm - 08/02 renal ultrasound bilateral stones 5-6 mm 24 hour urine - 06/30 adequate volume 1.6 L, low citrate Stone composition - 10/02 Tyrese ox monohydrate 80% Intervention - 10/31 right ESWL - 10/02 right ureteroscopy with laser lithotripsy Lower urinary tract Prior laser prostate procedure 2017 Did have bladder neck contracture Off Flomax Cystoscopy 06/28 open with TURP defect PFSH Medical History Elevated cholesterol Skin cancer H/O supraventricular tachycardia Back pain Hyponatremia Synovial cyst Bipolar disorder Larson esophagus GERD (gastroesophageal reflux disease) Other obstructive and reflux uropathy Benign prostatic hyperplasia with lower urinary tract symptoms Hypogonadism in male Former smoker Anxiety Depression Kidney stones Hiatal hernia Sleep apnea Myocardial infarct CAD (coronary artery disease) Surgical History S/P insertion of spinal cord stimulator Hx of tonsillectomy History of esophagogastroduodenoscopy (EGD) H/O colonoscopy H/O hernia repair H/O gastric bypass History of coronary artery bypass surgery History of lithotripsy History of spinal fusion History of cholecystectomy History of appendectomy Social History Household Members: Spouse Housing: House Are you a primary healthcare administrative assistant to a significant other at home: No Do you presently have visiting nurse or other home services: No Alcohol intake: former Patient Tobacco Use Status: Former Tobacco user service: No Review of Systems Const All systems reviewed & are unremarkable except as noted in HPI and below Reports no additional complaints Resp Reports no additional complaints GI Reports no additional complaints Reports as per HPI Musc Reports no additional complaints Physical Exam Telemedicine evaluation Appropriate responses Regular breathing rate and rhythm HEENT Head: Yes normal to inspection Ears: hearing grossly normal bilaterally Eyes General: appearance normal, both eyes and all related structures Neck Neck: Yes normal visual inspection Chest Chest palpation & inspection: normal inspection of the chest Resp Effort & Inspection: normal respiratory effort and able to speak in complete sentences Telehealth Telehealth Telehealth Platform: Telephone Location of provider rendering services: practice address Location of patient: address on file Patient Identification confirmed using: Name, : Yes Telehealth method: voice only Patient verbally consented to treatment: Yes Patient verbally consented to billing insurance company: Yes Patient informed of any privacy concerns related to visit: Yes Assessment & Plan Assessment & Plan (1) Kidney stones: Code(s): N20.0 - Calculus of kidney Category: Medical Plan Six-month follow-up Orders: Orders XR KUB 6 Months N20.0 - Calculus of kidney URORISK 6 Months N20.0 - Calculus of kidney Medications: Refilled pyridoxine (vitamin B6) 50 mg PO DAILY 90 tabs 1RF 90 days N20.0 - Calculus of kidney allopurinol 100 mg PO DAILY 90 tabs 1RF 90 days N20.0 - Calculus of kidney potassium citrate ER 20 mEq (2 x 10 mEq (1,080 mg)) PO BID 360 tabs 1RF 90 days N20.0 - Calculus of kidney Patient Instructions: This note is constructed using voice recognition software. While every effort has been made to ensure accuracy puncher and fastener errors may have been included. Imaging studies, laboratory and physical exam results were discussed and reviewed in detail. No major barriers to patient understanding were identified. An opportunity to ask questions regarding the treatment plan was provided. All questions were answered. The patient expressed understanding and agreement with the above treatment plan. The patient is aware they should contact our office by phone for worsening of their current condition or the appearance of new urologic symptoms. Compliance is encouraged with any medications and followup testing that is ordered. It is a privilege to participate in the urologic care of your patient. If you have any questions or concerns regarding treatment for the above conditions, or other urologic issues, please do not hesitate to contact me. The office telephone contact is [phone]. Sincerely, Dr Joe Contreras MD, [facility] - Urology Compassionate Specialist Care for the Genitourinary System Coding Level of Care Code Tele Est Pt Level 4 (78202) Diagnoses Kidney stones N20.0
== END 2025-01-17 09:36 | disposition home or self-care (01) ==
LOC: HO.HUSH 08:16
PROVIDERS: PCP Family Medicine; Visit Provider Urology
DX: N20.0 Calculus of kidney (principal)
CPT/HCPCS: 99214